=== PATIENT | male | born 1955 | race Caucasian/White ===

== ENCOUNTER 2022-08-30 01:45 | Inpatient (IN) | payer MEDICARE, MEDICAID, SELFPAY ==
[2022-08-30] VITALS (36 sets, daily range): BP systolic 91–147; BP diastolic 53–106; PULSE 102–154; RESP 20–117; TEMP 35.7–39.6; O2SAT 22–98; BMI 34.5
--- NOTE | 2022-08-30 | ECHO_ITS ---
Patient Info Name: David Fairbanks Age: 67 years : 1955 Gender: Male Ht: 74 in Wt: 268 lbs BSA: 2.56 m2 HR: 112 bpm BP: 133 / 106 mmHg Heart Rhythm: Atrial Fibrillation Technical Quality: Poor Exam Date: 08/30/2022 10:24 AM Exam Location: [facility] Patient Status: Inpatient Admit Date: 08/30/2022 Staff Ordering Physician: Mandy Berman DO Head Worker: Shaila Alvarez RDCS Attending Provider: Mandy Berman DO Referring Physician: Antonella GLEASON; Exam Type: CA echo dop color flow w con Study Info Indications I48.0 - Paroxysmal atrial fibrillation Complete two-dimensional, color flow and Doppler transthoracic echocardiogram is performed with contrast to opacify the left ventricle and to improve the deliniation of the left ventricle endocardial borders. Contrast/Agitated Saline Contrast/Ag. Saline: Definity Amount: 4.00 ml Administered By: Shaila Alvarez [facility] Reason for Poor Study: patient body habitus Summary 1. Technically difficult study with limited views despite definity echo contrast enhancement. 2. Left ventricular chamber dimension is normal. 3. Left ventricular systolic function is hyperdynamic, estimated at >70%. 4. There is mildly increased left ventricular wall thickness. 5. The left ventricular diastolic function is indeterminate. 6. There is no aortic valve stenosis. Left Ventricle Left ventricular chamber dimension is normal. Left ventricular systolic function is hyperdynamic, estimated at >70%. There is mildly increased left ventricular wall thickness. The left ventricular diastolic function is indeterminate. Technically difficult study with limited views despite definity echo contrast enhancement. Right Ventricle Right ventricular chamber dimension is normal. Right ventricular systolic function is normal. Left Atria Left atrial chamber dimension is normal. Right Atria Right atrial chamber dimension is not well visualized. Aortic Valve The aortic valve is not well visualized. There is no aortic valve stenosis. Pulmonic Valve The pulmonic valve is not well visualized. Mitral Valve The mitral valve has not well visualized. There is trace mitral valve regurgitation. The mitral valve annulus is moderately calcified. Tricuspid Valve The tricuspid valve leaflets are not well visualized. Unable to assess PA systolic pressure due to poor spectral resolution of tricuspid regurgitant jet velocity. Pericardium/Pleural The pericardium appears epicardial fat pad. There is small pericardial effusion. Inferior Vena Cava Normal inferior vena cava with >50% collapse upon inspiration consistent with normal right atrial pressure, 5 mmHg. Aorta The aortic root size at the sinus of Valsalva is normal. There is mild-moderate aortic atherosclerosis. Left Ventricular Outflow Tract Name Value Normal LVOT 2D LVOT Diameter 1.95 cm LVOT Doppler LVOT Peak Gradient 9 mmHg LVOT Mean Gradient 5 mmHg LVOT VTI 22.37 cm
--- NOTE | ~2022-08-30 | XR_ITS ---
EXAMINATION: XR chest 1V portable DATE: 09/01/2022 13:14 INDICATION: Shortness of breath TECHNIQUE: frontal view of the chest was obtained. COMPARISON: Chest radiograph dated 08/30/2022 FINDINGS: Increased interstitial and mild airspace opacities in the right mid to lower and left lower lung zone s. No pleural effusion or pneumothorax. Cardiomegaly. IMPRESSION: 1. Mild opacities in the right mid to lower and left lower lung zones which could represent mild pulm onary edema related to congestive heart failure versus pneumonia. 2. Cardiomegaly. Reviewed, dictated and finalized at location A. SPINNER IMPRESSION: 1. Mild opacities in the right mid to lower and left lower lung zones which cou ld represent mild pulmonary edema related to congestive heart failure versus pn eumonia. 2. Cardiomegaly.
--- NOTE | ~2022-08-30 | XR_ITS ---
Portable chest x-ray Comparison: 09/01/2022 Clinical History: Shortness of breath Findings: There is central congestive change and probable mild central pulmonary edema pattern. No d efinite pleural effusion. Cardiomediastinal silhouette is stable. Bones and soft tissues are unremar kable. Impression: Mild central pulmonary edema pattern. Reviewed, dictated and finalized at [facility]. GER MARKET RESEARCH Impression: Mild central pulmonary edema pattern.
--- NOTE | ~2022-08-30 | US_ITS ---
EXAMINATION: US renal BI DATE: 08/30/2022 11:55 INDICATION: Obstructive uropathy TECHNIQUE: Multiple grayscale and Doppler ultrasound images of the kidneys were obtained. COMPARISON: None. FINDINGS: The right kidney measures 11.8 x 7.0 x 6.8 cm. The left kidney measures 14.3 x 7.2 x 5.6 cm. The kidn eys demonstrate normal parenchymal echogenicity. 5.0 simple left upper pole cyst. There is mild bilat eral hydronephrosis. The bladder is decompressed by Mace catheter. IMPRESSION: Mild bilateral hydronephrosis. Reviewed, dictated and finalized at location K. IO GRIP
--- NOTE | ~2022-08-30 | XR_ITS ---
EXAMINATION: XR chest 1V portable DATE: 08/30/2022 03:15 INDICATION: Altered mental status and fever TECHNIQUE: frontal view of the chest was obtained. COMPARISON: None FINDINGS: Small lung volumes. Mild linear atelectasis at the left lower lung zone. No pulmonary edema, pleural effusion or pneumothorax. The cardiomediastinal silhouette is normal. IMPRESSION: 1. Small lung volumes with left basilar atelectasis. Reviewed, dictated and finalized at location A. K OFF WORKER
--- NOTE | ~2022-08-30 | CT_ITS ---
EXAMINATION: CT brain wo con DATE: 08/30/2022 19:03 INDICATION: altered mental stautus . TECHNIQUE: Computed tomography (CT) of the head was performed without intravenous contrast. The mA wa s adjusted according to patient size. Iterative reconstruction technique was employed. The dose-lengt h product was 983.67 mGy-cm. COMPARISON: None. FINDINGS: Exam limited by nonstandard positioning and motion. No acute intracranial hemorrhage or extra-axial fluid collection. No hydrocephalus, mass, or herniation. No acute ischemic infarct. Unremarkable dural venous sinus attenuation. No acute osseous abnormality. The aerated spaces are clear. Moderate atrophy and chronic white matter change. Atherosclerotic intracranial calcification. IMPRESSION: Limited examination as detailed above. Within those constraints, no definite acute intracranial proce ss. Reviewed, dictated and finalized at location K. STS' BOOKING REPRESENTATIVE IMPRESSION: Limited examination as detailed above. Within those constraints, no definite ac vince intracranial process.
--- NOTE | 2022-08-30 02:00 | ECG_ITS ---
Measurements Intervals [place] Rate: 131 P: KS: 0 QRS: 12 QRSD: 86 T: 151 QT: 251 QTc: 372 Interpretive Statements ATRIAL FIBRILLATION WITH RAPID VENTRICULAR RESPONSE ST DEVIATION AND MODERATE T-WAVE ABNORMALITY, CONSIDER LATERAL ISCHEMIA ABNORMAL ECG NO PREVIOUS ECG AVAILABLE FOR COMPARISON Electronically Signed On 08-30-2022 13:34:08 TEACHER OF THE EMOTIONALLY DISTURBED by Vinnie Ward M.D.
--- NOTE | 2022-08-30 02:02 | ED.AMS ---
HPI - Altered Mental Status General Chief Complaint: Altered Mental Status Stated Complaint: LETHARGIC, AMS History of Present Illness HPI narrative: 67-year-old male presented to the emergency department from a local skilled nursing for evaluation of altered mental status lethargy and fever. Patient does have history of dementia and bipolar. Patient has been living in a skilled nursing since 2015. Upon arrival to the emergency department patient was in A. fib with RVR in the 130s to 150s. Patient was febrile at 103.3. Related Data Home Medications Medication Instructions Recorded Confirmed apixaban 5 mg tablet (Eliquis) mg 08/30/22 diltiazem HCl 60 mg tablet mg 08/30/22 hydrochlorothiazide 12.5 mg capsule mg 08/30/22 insulin detemir U-100 100 unit/mL unit subcut 08/30/22 subcutaneous solution (Levemir U-100 Insulin) insulin regular human 100 unit/mL 08/30/22 injection solution (Novolin R Regular U-100 Insulin) memantine 10 mg tablet mg 08/30/22 metformin 1,000 mg tablet mg 08/30/22 metoprolol tartrate 25 mg tablet mg 08/30/22 pravastatin 40 mg tablet mg 08/30/22 Allergies Allergy/AdvReac Type Severity Reaction Status Date / Time aspirin Allergy Other Verified 08/30/22 04:41 Review of Systems Review of Systems: ROS unobtainable: Yes unobtainable due to medical condition PMFSH Past Medical History Medical History (Updated 08/30/22 @ 07:00 by Mandy Berman DO) Bipolar disorder Cardiomyopathy Chronic atrial fibrillation Dementia Diabetes mellitus with hyperglycemia, with long-term current use of insulin Diabetic peripheral neuropathy Essential hypertension Morbid obesity Obstructive sleep apnea Likely Vitamin D deficiency Surgical History Surgical History (Updated 08/30/22 @ 06:42 by Mandy Berman DO) Surgical history unknown Family History Family History (Updated 08/30/22 @ 06:42 by Mandy Berman DO) Other Unknown family medical history Social History Social History (Updated 08/30/22 @ 06:51 by Mandy Berman DO) Social History: 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 He has never been and does not have any children. He has been in a skilled nursing since December 2015. His mother is listed as his emergency contact. Code status: DNR/DNI with comfort based treatment Exam Narrative: APPEARANCE: Somnolent and ill-appearing HEAD: normocephalic, atraumatic. EYES: PERRLA/EOMI, conjunctivae clear. NOSE: Normal no drainage THROAT: Pharynx clear, no exudate. NECK: Supple. No adenopathy, no masses. RESPIRATORY: Airway patent, respirations nonlabored. Clear to auscultation bilaterally, no rales, rhonchi, wheezing. CARDIOVASCULAR: Regular rate and rhythm without murmurs rubs or gallops. ABDOMINAL: Soft, nontender, nondistended, normal bowel sounds MUSCULOSKELETAL: Moves all extremities. Strength/ROM intact, No edema, No calf tenderness. NEURO: Alert. Cranial nerves II through XII intact. Grossly intact SKIN: Warm, dry. Normal Color Course Course Emergency Course: Patient had a Mace catheter placed and patient drained 1900 mils of urine. Urine was purulent. Patient's fever was treated with IV Tylenol. Patient does have a leukocytosis of 17.1. Patient has creatinine of 3.7, his baseline is unknown. This is thought to be acute due to his obstructive uropathy. Patient does have history of A. fib but was in A. fib with RVR. Patient was treated with a Cardizem bolus and infusion. Patient was also treated with 2 L of normal saline. Patient UTI was treated with IV Rocephin. Culture and blood culture pending. Patient was also treated with his p.o. morning dose of diltiazem and metoprolol. Case was discussed with the hospitalist and patient was accepted for admission. Vital Signs Vital signs: Vital Signs Temperature 103.3 F H 08/30/22 01:59 Pulse Rate 130 H 08/30/22 01:59 Respiratory Rate 24 H 08/30/22 01:59 Blood Pressure 141/90 H 08/30/22
[2022-08-30] MEDS: dilTIAZem HCl INJ 25 MG/5 ML VIAL 10 MG IV PUSH (02:19)
[2022-08-30] MEDS: SODIUM CHLORIDE 0.9% IV 1,000 ML 999 ML IV CONT ×2 (02:19→03:10)
[2022-08-30] MEDS: dilTIAZem 100 MG/100 ML 100 MG/100 ML BAG IV CONT (02:20)
[2022-08-30 02:43] LABS: Basophils Absolute Auto 0.1 K/mm3 (0.0-0.1); Basophils Percent Auto 0.3 % (0.2-1.2); Eosinophils Percent Auto 0.1 % (0-4.4); Hematocrit 38.9 % (42.0-52.0); Hemoglobin 12.4 g/dL (14.0-18.0); Immature Granulocyte Absolute 0.14 K/mm3 (0.00-0.031); Immature Granulocyte Percent A 0.8 % (0-0.5); Lymphocytes Percent Auto 5.9 % (18.3-44.2); Mean Corpuscular HGB Conc 31.9 g/dl (32-36); Mean Corpuscular Hemoglobin 27.7 pg (26-34); Mean Platelet Volume 9.4 fl (7.4-10.4); Monocytes Percent Auto 5.8 % (2.6-8.5); Neutrophils Absolute Auto 14.9 K/mm3 (1.3-6.7); Neutrophils Percent Auto 87.1 % (45.5-73.1); Platelet Count Result 380 k/mm3 (150-375); Red Blood Count 4.47 M/mm3 (4.6-6.20); White Blood Count 17.1 K/mm3 (4.5-10.0)
[2022-08-30 02:52] LABS: Alanine Aminotransferase 27 U/L (6-50); Albumin Level 3.9 g/dL (3.5-5.1); Alkaline Phosphatase 71 U/L (38-126); Anion Gap 14 mmol/L (8-16); Aspartate Amino Transferase 33 U/L (17-59); Bilirubin,Total 0.5 mg/dL (0.2-1.3); Blood Urea Nitrogen 58 mg/dL (9-20); Calcium 8.4 mg/dL (8.4-10.2); Carbon Dioxide 25 mmol/L (22-30); Chloride 101 mmol/L (98-107); Estimated Glomerular Filt Rate 17; Glucose 103 mg/dL (65-110); Potassium 3.4 mmol/L (3.4-5.0); Sodium 140 mmol/L (137-145)
[2022-08-30 03:17] LABS: Add Urine Microscopic? YES; Bilirubin Urine Negative (Negative); Blood Urine 2+ (Negative); Glucose Urine UA Negative (Negative); Ketones Urine Negative (Negative); Leukocyte Esterase Ur 3+ LEU/UL (Negative); Nitrate Urine Negative (Negative); Protein Urine 2+ mg/dL (Negative); Specific Grav Ur 1.015 (1.001-1.035); Urobilinogen Urine 0.2 mg/dL (<2.0)
[2022-08-30 03:18] LABS: Influenza A QL RT-PCR Negative (Negative); Influenza B QL RT-PCR Negative (Negative); RSV RNA, RT-PCR Negative (Negative); SARS-CoV-2 RNA PCR Negative
[2022-08-30 03:22] LABS: RBC Urine 21-50 /hpf (0-2); WBC Urine >75 /hpf
[2022-08-30 03:26] LABS: Appearance Urine Cloudy (Clear); Color Urine Other (Yellow)
[2022-08-30] MEDS: dilTIAZem HCL 60 MG TABLET PO (04:48)
[2022-08-30] MEDS: METOPROLOL TARTRATE 50 MG TAB 25 MG PO (04:48)
--- NOTE | 2022-08-30 05:54 | PM.IMHP ---
H&P: HPI History of Present Illness Date/Time: 08/30/22 05:54 Chief Complaint: Lethargic Narrative: 67-year-old male with past medical history of bipolar disorder, dementia, chronic atrial fibrillation, cardiomyopathy, type 2 diabetes mellitus uncontrolled and morbid obesity who presented to the ER from [facility] due to lethargy. Source of information is snf records and external med history. Patient is alert oriented to name only and cannot provide history. According to the triage note the patient is usually alert oriented and able to care for himself. However snf staff noted that the patient had not been out of his room for the day and seemed lethargic. He would open his eyes to verbal commands but was not answering questions. Wants to was in the ER and was treated with antibiotics and IV fluids the patient's mentation improved to where he would answer his name and would say yes or no to questions but responses were not appropriate. The patient was still have episodes of staring off. When the patient arrived to the ER he was febrile with a T-max of a 103.3?. He was in AFib RVR with a heart rate into the 140s and 150s. His blood pressures were stable. He was not requiring oxygen but was tachypneic with respiratory rate between 20-30. The patient answers that he does not know when asked about the month day year or where he currently is. When asked about symptoms the patient's simply stares ahead and gives no response. He will squeeze my hands on command. In the ER patient had not urinated to the Mace catheter was placed. Patient had immediate return of 1.9 L of urine. Nursing staff did clamp the patient's Mace catheter after proximally 1.5 L of urine and when they on clamped he still had an additional 400 mL. There was no significant he hematuria but ER staff reported that the patient's urine looked like pus. Review of Systems Review of Systems: ROS unobtainable: Yes unobtainable due to mental status PMFSH Past Medical History Medical History (Updated 08/30/22 @ 07:00 by Mandy Berman, DO) Bipolar disorder Cardiomyopathy Chronic atrial fibrillation Dementia Diabetes mellitus with hyperglycemia, with long-term current use of insulin Diabetic peripheral neuropathy Essential hypertension Morbid obesity Obstructive sleep apnea Likely Vitamin D deficiency Surgical History Surgical History (Updated 08/30/22 @ 06:42 by Mandy Berman DO) Surgical history unknown Family History Family History (Updated 08/30/22 @ 06:42 by Mandy Berman DO) Other Unknown family medical history Social History Social History (Updated 08/30/22 @ 06:51 by Mandy Berman DO) Social History: 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 He has never been and does not have any children. He has been in a snf since December 2015. His mother is listed as his emergency contact. Code status: DNR/DNI with comfort based treatment Meds Home Medications and Allergies Home Medications Medication Instructions Recorded Confirmed Type apixaban 5 mg tablet (Eliquis) mg 08/30/22 History diltiazem HCl 60 mg tablet mg 08/30/22 History hydrochlorothiazide 12.5 mg capsule mg 08/30/22 History insulin detemir U-100 100 unit/mL unit subcut 08/30/22 History subcutaneous solution (Levemir U-100 Insulin) insulin regular human 100 unit/mL 08/30/22 History injection solution (Novolin R Regular U-100 Insulin) memantine 10 mg tablet mg 08/30/22 History metformin 1,000 mg tablet mg 08/30/22 History metoprolol tartrate 25 mg tablet mg 08/30/22 History pravastatin 40 mg tablet mg 08/30/22 History Allergies Allergy/AdvReac Type Severity Reaction Status Date / Time aspirin Allergy Other Verified 08/30/22 04:41 Vital Signs Vital Signs - 24 hr 08/30/22 01:59 08/30/22 02:20 08/30/22 03:02 Temperature 103.3 F H Pulse Rate 130 H 154 H 115 H Respiratory Rate 2
--- NOTE | 2022-08-30 06:58 | ADMGEN ---
This patient, David Fairbanks, was admitted to IMU Room 209-01 at 0640. Patient/family oriented to hospital policies and general routines including ID bracelet, bed and alarms, visiting hours, pain management, procedures, bathroom and other care routines, personal items, smoking policy, room service/diet, and visiting hours. Information on how to activate the Rapid Response Team has been discussed. Patient/Family are encouraged to report perceived risks to care and to ask questions if they do not understand what they are told or what they should do.
--- NOTE | 2022-08-30 07:00 | ADMGEN ---
This patient, David Fairbanks, was admitted to IMU Room 214-01. Patient/family oriented to hospital policies and general routines including ID bracelet, bed and alarms, visiting hours, pain management, procedures, bathroom and other care routines, personal items, smoking policy, room service/diet, and visiting hours. Information on how to activate the Rapid Response Team has been discussed. Patient/Family are encouraged to report perceived risks to care and to ask questions if they do not understand what they are told or what they should do.
[2022-08-30 07:55] LABS: Glucose Point of Care 71 mg/dl (65-105)
[2022-08-30] MEDS: SODIUM CHLORIDE 0.9% IV 1,000 ML 100 ML IV CONT ×2 (08:00→21:47)
[2022-08-30 08:24] LABS: Lactic Acid Reflex 2.2 mmol/L (0.7-2.0)
[2022-08-30] MEDS: PERFLUTREN LIPID MICROSPHERES 1.5 ML VIAL DILUTED TO 10 ML TOTAL VOLUME IV PUSH (10:15)
[2022-08-30] MEDS: dilTIAZem 100 MG/100 ML 100 MG/100 ML BAG 15 MG IV CONT ×3 (10:23→23:45)
[2022-08-30 11:10] LABS: Reflex Lactic Acid Yes or No Add Lactic
--- NOTE | 2022-08-30 11:53 | PM.IMPN ---
Progress Note: A&P Assessment and Plan (1) Sepsis: Qualifiers: Sepsis acute organ dysfunction status: with acute organ dysfunction Sepsis type: sepsis due to unspecified organism Severe sepsis acute organ dysfunction type: encephalopathy Severe sepsis shock status: without septic shock Qualified Code(s): A41.9 - Sepsis, unspecified organism; R65.20 - Severe sepsis without septic shock; G93.40 - Encephalopathy, unspecified Code(s): A41.9 - Sepsis, unspecified organism Status: Acute Assessment and Plan: Patient has sepsis complicated by acute metabolic and encephalopathy and acute kidney injury. Sepsis due to UTI and associated obstructive uropathy. Mace catheter placed. Blood cultures and urine cultures are pending. Lactic acid level 2.2. Patient received 2 L fluid bolus in the ER; continue IV fluid hydration. Continue empiric antibiotic therapy. Change to Cefepime and Vanco. Narrow abx when able. He is DNR (2) Atrial fibrillation with RVR: Code(s): I48.91 - Unspecified atrial fibrillation Status: Acute Assessment and Plan: Patient has AFib RVR likely due to combination of volume depletion and sepsis. Patient has chronic atrial fibrillation at baseline. Continue Cardizem drip at this time until he is more awake and alert. NPO for now. Echo ordered. Resume Eliquis when able. (3) Acute kidney injury: Code(s): N17.9 - Acute kidney failure, unspecified Status: Acute Assessment and Plan: Patient has acute kidney injury likely due to combination of sepsis and obstructive uropathy. Mace catheter is in place. Will monitor urine output closely. Continue IV fluid hydration. Renal US pending. Further workup if Cr does not improve as expected (4) Acute UTI: Code(s): N39.0 - Urinary tract infection, site not specified Status: Acute Assessment and Plan: UA noted. UTI related to obstructive uropathy. Mace secured. Follow up on UCx and BCx results (5) Obstructive uropathy: Code(s): N13.9 - Obstructive and reflux uropathy, unspecified Status: Acute Assessment and Plan: As above. Mace secured. Add Flomax when able. 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 Continue AccuCheks covering with sliding scale. Hypoglycemia protocol available as needed. Continue to monitor (7) Metabolic encephalopathy: Code(s): G93.41 - Metabolic encephalopathy Status: Acute Assessment and Plan: Patient with altered mental status on admission. The patient had acute metabolic encephalopathy related to sepsis and infection complicated by his underlying dementia. Will continue to monitor and avoid sedating medications. Check CT brain. Subjective Date/time seen: 08/30/22 11:53 Interval history: 67yo male with dementia, cAFib, CMP and DM here for altered mental status. Patient arouses but is unable to provide history. Review of Systems Review of Systems: ROS unobtainable: Yes unobtainable due to mental status Exam Narrative: Tm 103.3 96.7 142/63 107 24 98% ra Gen - poorly responsive, tachypneic at times Chest - clear anteriorly and in the flanks. CV - tachycardic Abd - Soft, no apparent tenderness - Mace secured draining cloudy orange urine Ext - trace pedal edema Neuro - Arouses and opens eyes but does not follow commands Skin - Warm to touch Objective Data Vital Signs Vital Signs: Vital Signs - 24 hr 08/30/22 01:59 08/30/22 02:20 08/30/22 03:02 Temperature 103.3 F H Pulse Rate 130 H 154 H 115 H Respiratory Rate 24 H Blood Pressure 141/90 H 141/90 H Pulse Oximetry Oxygen Delivery
[2022-08-30 12:05] LABS: Glucose Point of Care 113 mg/dl (65-105)
[2022-08-30 12:43] LABS: Lactic Acid 1.8 mmol/L (0.7-2.0)
[2022-08-30 12:45] LABS: Anion Gap 8 mmol/L (8-16); Blood Urea Nitrogen 37 mg/dL (9-20); Calcium 7.8 mg/dL (8.4-10.2); Carbon Dioxide 27 mmol/L (22-30); Chloride 104 mmol/L (98-107); Creatine Kinase 817 U/L (55-170); Estimated CRCL calculation 47 ml/min; Estimated Glomerular Filt Rate 34; Glucose 114 mg/dL (65-110); Phosphorus 3.7 mg/dL (2.5-4.5); Sodium 139 mmol/L (137-145)
[2022-08-30 15:46] LABS: Alveolar/Arterial O2 Gradient 56.7 mmHg; Base Excess ABG -0.2 mEq/l (+/-2.0); Fractional Inspired Oxygen 21 %; HCO3 ABG 21.4 mEq/l (22.0-26.0); Oxygen Content ABG 15.2 %vol (16.0-22.0); Oxygen Saturation ABG 94.4 % (95.0-100.0); Oxyhemoglobin 92.2 % THb (90.0-100.0); PCO2 ABG 26.2 mmHg (35.0-45.0); PO2 ABG 61.7 mmHg (80.0-100.0); PO2 FiO2 Ratio Arterial Blood 2.94 %; Total Hemoglobin 11.7 g/dL (12.0-18.0)
[2022-08-30 15:49] LABS: Device ROOM AIR; Modified Allen's Test Pass; Site Drawn LEFT RADIAL; pH ABG 7.529 (7.350-7.450)
[2022-08-30] MEDS: INSULIN ASPART (*BKC) 100 UNITS/ML SUB-Q (17:49)
[2022-08-30 18:18] LABS: Glucose Point of Care 206 mg/dl (65-105)
[2022-08-30 21:29] LABS: Glucose Point of Care 208 mg/dl (65-105)
[2022-08-31] VITALS (19 sets, daily range): BP systolic 108–136; BP diastolic 54–112; PULSE 105–142; RESP 21–28; TEMP 36.3–37.2; O2SAT 96–100
[2022-08-31 05:32] LABS: Basophils Percent Auto 0.2 % (0.2-1.2); Hematocrit 33.2 % (42.0-52.0); Hemoglobin 10.5 g/dL (14.0-18.0); Immature Granulocyte Absolute 0.09 K/mm3 (0.00-0.031); Immature Granulocyte Percent A 0.8 % (0-0.5); Lymphocytes Absolute Auto 1.25 K/mm3 (0.9-3.2); Lymphocytes Percent Auto 11.5 % (18.3-44.2); Mean Corpuscular HGB Conc 31.6 g/dl (32-36); Mean Corpuscular Hemoglobin 27.7 pg (26-34); Mean Corpuscular Volume 87.6 fl (80-100); Mean Platelet Volume 8.9 fl (7.4-10.4); Monocytes Absolute Auto 0.8 K/mm3 (0.1-0.6); Neutrophils Absolute Auto 8.8 K/mm3 (1.3-6.7); Neutrophils Percent Auto 80.5 % (45.5-73.1); Platelet Count Result 258 k/mm3 (150-375); Red Blood Count 3.79 M/mm3 (4.6-6.20); Red Cell Distribution Width 13.2 % (11.5-14.5); White Blood Count 10.9 K/mm3 (4.5-10.0)
[2022-08-31 05:59] LABS: Anion Gap 12 mmol/L (8-16); Blood Urea Nitrogen 21 mg/dL (9-20); Calcium 7.6 mg/dL (8.4-10.2); Carbon Dioxide 22 mmol/L (22-30); Chloride 109 mmol/L (98-107); Estimated CRCL calculation 73 ml/min; Estimated Glomerular Filt Rate 55; Glucose 262 mg/dL (65-110); Magnesium 1.9 mg/dL (1.6-2.3); Potassium 2.6 mmol/L (3.4-5.0); Sodium 143 mmol/L (137-145)
[2022-08-31] MEDS: SODIUM CHLORIDE 0.9% IV 1,000 ML 100 ML IV CONT (06:07)
[2022-08-31] MEDS: dilTIAZem 100 MG/100 ML 100 MG/100 ML BAG 15 MG IV CONT ×3 (06:40→19:50)
[2022-08-31 07:47] LABS: Glucose Point of Care 309 mg/dl (65-105)
[2022-08-31] MEDS: INSULIN ASPART (*BKC) 100 UNITS/ML SUB-Q ×3 (08:07→18:00)
[2022-08-31 11:37] LABS: Glucose Point of Care 261 mg/dl (65-105)
[2022-08-31 12:28] LABS: Hemoglobin A1C 10.8 % (<5.7)
[2022-08-31] MEDS: POTASSIUM CHLORIDE 20 MEQ TABLET 60 MEQ PO (12:28)
[2022-08-31] MEDS: POTASSIUM CHLORIDE INJ 40 MEQ in SODIUM CHLORIDE 0.9% IV 500 ML 130 MEQ IVPB (13:07)
--- NOTE | 2022-08-31 13:28 | PM.IMPN ---
Progress Note: A&P Assessment and Plan (1) Sepsis: Qualifiers: Sepsis acute organ dysfunction status: with acute organ dysfunction Sepsis type: sepsis due to unspecified organism Severe sepsis acute organ dysfunction type: encephalopathy Severe sepsis shock status: without septic shock Qualified Code(s): A41.9 - Sepsis, unspecified organism; R65.20 - Severe sepsis without septic shock; G93.40 - Encephalopathy, unspecified Code(s): A41.9 - Sepsis, unspecified organism Status: Acute Assessment and Plan: Sepsis likely from UTI with associated obstructive uropathy, continue Mace, cultures pending Continue of vanc and cefepime (2) Atrial fibrillation with RVR: Code(s): I48.91 - Unspecified atrial fibrillation Status: Acute Assessment and Plan: Continue Cardizem drip, appreciate cardiology consultation EF greater than 70%, indeterminate diastolic function, no valvular abnormalities or pulmonary hypertension noted (3) Acute kidney injury: Code(s): N17.9 - Acute kidney failure, unspecified Status: Acute Assessment and Plan: Improving, continue to monitor (4) Acute UTI: Code(s): N39.0 - Urinary tract infection, site not specified Status: Acute Assessment and Plan: Continue antibiotics, follow-up urine culture (5) Obstructive uropathy: Code(s): N13.9 - Obstructive and reflux uropathy, unspecified Status: Acute Assessment and Plan: Continue Mace (6) Diabetes mellitus with hyperglycemia, with long-term current use of insulin: Code(s): E11.65 - Type 2 diabetes mellitus with hyperglycemia; 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 Patient arouses but is unable to provide history. No overnight events noted. No fevers or chills Review of Systems Review of Systems: ROS unobtainable: Yes unobtainable due to mental status Exam Narrative: General: Appears quite confused HEENT: Atraumatic, normocephalic, mucous membranes moist CV: Regular rate and rhythm, S1, S2 Lungs: Diminished throughout, scattered wheezes Abdomen: Soft, nontender, nondistended Extremities: Normal to inspection Skin: No rashes noted, no lesions or wounds seen Psych: Unable to assess Objective Data Vital Signs Vital Signs: Vital Signs - 24 hr 08/30/22 14:00 08/30/22 16:00 08/30/22 16:51 Temperature 100 F H Pulse Rate 115 H 112 H Respiratory Rate 117 H Blood Pressure 143/61 H Pulse Oximetry 22 L Oxygen Delivery 08/30/22 18:20 08/30/22 16:00 08/30/22 18:00 Temperature 103.3 F H Pulse Rate 109 H 122 H Respiratory Rate Blood Pressure Pulse Oximetry Oxygen Delivery 08/30/22 16:00 08/30/22 20:00 08/30/22 23:45 Temperature 98.9 F Pulse Rate 121 H 103 H Respiratory Rate 30 H Blood Pressure 101/78 Pulse Oximetry 96 Oxygen Delivery Room Air 08/30/22 23:51 08/30/22 20:00 08/31/22 00:00 Temperature 100.4 F H Pulse Rate 113 H Respiratory Rate 26 H Blood Pressure 133/70 Pulse Oximetry 94 Oxygen Delivery Room Air Room Air 08/30/22 20:00 08/30/22 22:00 08/31/22 00:00 Temperature Pulse Rate 131 H 113 H 109 H Respiratory Rate Blood Pressure Pulse Oximetry Oxygen Delivery 08/31/22 02:00 08/31/22 03:49 08/31/22 04:00 Temperature 99.0 F Pulse Rate 105 H 129 H Respiratory Rate 28 H Blood Pressure 125/69 Pulse Oximetry 97 Oxygen Delivery Room Air 08/31/22 04:00 1
[2022-08-31 16:44] LABS: Glucose Point of Care 244 mg/dl (65-105)
[2022-08-31 20:33] LABS: Glucose Point of Care 271 mg/dl (65-105)
[2022-09-01] VITALS (22 sets, daily range): BP systolic 105–156; BP diastolic 64–94; PULSE 63–143; RESP 20–32; TEMP 36.5–37.2; O2SAT 92–99; BMI 35.4
[2022-09-01] MEDS: dilTIAZem 100 MG/100 ML 100 MG/100 ML BAG 15 MG IV CONT ×4 (02:32→21:55)
[2022-09-01 04:50] LABS: Basophils Percent Auto 0.2 % (0.2-1.2); Hematocrit 31.6 % (42.0-52.0); Hemoglobin 10.1 g/dL (14.0-18.0); Immature Granulocyte Absolute 0.09 K/mm3 (0.00-0.031); Immature Granulocyte Percent A 0.7 % (0-0.5); Lymphocytes Absolute Auto 1.79 K/mm3 (0.9-3.2); Mean Corpuscular Hemoglobin 27.7 pg (26-34); Mean Corpuscular Volume 86.6 fl (80-100); Monocytes Absolute Auto 1.2 K/mm3 (0.1-0.6); Monocytes Percent Auto 8.8 % (2.6-8.5); Neutrophils Absolute Auto 10.7 K/mm3 (1.3-6.7); Neutrophils Percent Auto 77.3 % (45.5-73.1); Platelet Count Result 245 k/mm3 (150-375); Red Blood Count 3.65 M/mm3 (4.6-6.20); White Blood Count 13.8 K/mm3 (4.5-10.0)
[2022-09-01 05:10] LABS: Anion Gap 12 mmol/L (8-16); Blood Urea Nitrogen 12 mg/dL (9-20); Calcium 7.7 mg/dL (8.4-10.2); Carbon Dioxide 21 mmol/L (22-30); Chloride 103 mmol/L (98-107); Estimated CRCL calculation 104 ml/min; Estimated Glomerular Filt Rate > 60; Glucose 287 mg/dL (65-110); Magnesium 1.7 mg/dL (1.6-2.3); Phosphorus 2.2 mg/dL (2.5-4.5); Potassium 2.7 mmol/L (3.4-5.0); Sodium 136 mmol/L (137-145)
[2022-09-01 05:24] LABS: Iron 15 ug/dL (49-181)
[2022-09-01] MEDS: POTASSIUM CHLORIDE 20 MEQ TABLET 60 MEQ PO (05:29)
[2022-09-01] MEDS: MAGNESIUM SULF 2 GM/WATER 50ML 2 GM/50 ML BAG IVPB (05:29)
[2022-09-01 05:34] LABS: Percent Iron Saturation 6 % (20-50)
[2022-09-01] MEDS: INSULIN ASPART (*BKC) 100 UNITS/ML SUB-Q ×3 (08:09→16:44)
[2022-09-01 08:22] LABS: Glucose Point of Care 309 mg/dl (65-105)
--- NOTE | 2022-09-01 09:03 | PM.CNCAR ---
Assessment and Plan Assessment and plan (1) Atrial fibrillation with RVR: Code(s): I48.91 - Unspecified atrial fibrillation Status: Acute Assessment and Plan: Persistent AFib with RVR in the setting of sepsis, UTI persists despite diltiazem 15 milligrams/hour. Patient has became progressively more tachycardic over the past 24 hours. Patient has been severely hypokalemic despite supplementation. Will need to more aggressively replete to keep around 4.0. Add metoprolol for additional heart rate control as tolerated. If heart rate remains poorly controlled discontinue diltiazem favor of amiodarone. However, Eliquis has apparently been held since 08/30, H&H stable. Resume unless contraindication. Reassess respiratory status given tachypnea although O2 sat on room air stable. Patient has mild lower extremity edema consider IV Lasix, however, given recent severe hypokalemia miss aggressively replete but I would review chest x-ray 1st. Monitor volume status, H&H. Potassium is now been replete this afternoon. Troponin negative. If electrical cardioversion deemed necessary unfortunately he would now require BASIM guidance as he has been off anticoagulation which replacement elevated risk for acute respiratory decompensation. May give IV metoprolol 5 mg x 1, increase metoprolol to 50 mg p.o. q.8 hours and continue diltiazem drip at this time. As above, while amiodarone remains a consideration this would pose additional embolic stroke risk as he has been off anticoagulation but may be considered if no other reasonable option. (2) Metabolic encephalopathy: Code(s): G93.41 - Metabolic encephalopathy Status: Acute Assessment and Plan: Stable, history of bipolar disorder. Management per primary service. (3) Acute UTI: Code(s): N39.0 - Urinary tract infection, site not specified Status: Acute Assessment and Plan: IV antibiotics. Management per primary service. (4) Hypokalemia: Code(s): E87.6 - Hypokalemia Status: Acute Assessment and Plan: Severe hypokalemia now replete today. Continue to monitor very closely. Keep around 4.0. Magnesium 1.7. May given additional 1 g magnesium sulfate IV. (5) Acute kidney injury: Code(s): N17.9 - Acute kidney failure, unspecified Status: Acute Assessment and Plan: Significant improvement since admission 3.7 initially now 0.9 secondary to intravascular volume depletion. (6) Sepsis: Qualifiers: Sepsis acute organ dysfunction status: with acute organ dysfunction Sepsis type: sepsis due to unspecified organism Severe sepsis acute organ dysfunction type: encephalopathy Severe sepsis shock status: without septic shock Qualified Code(s): A41.9 - Sepsis, unspecified organism; R65.20 - Severe sepsis without septic shock; G93.40 - Encephalopathy, unspecified Code(s): A41.9 - Sepsis, unspecified organism Status: Acute Assessment and Plan: Management per primary service. Acute illness not doubt driving his heart rate. Continue IV antibiotics and supportive care. WBC fluctuating up from yesterday now. Repeat cultures if febrile. 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 History of Present Illness History of Present Illness Consult date/time: Date of service: 09/01/22 09:03 Requesting physician: Funmilayo Mtz DO Consult reason: atrial fibrillation Reason For Visit: UTI,Afib,RVR,YUN Narrative: Patient is a 67-year-old male with a past medical history significant for bipolar disorder, dementia, persistent atrial fibrillation on systemic anticoagulation, type 2 diabetes mellitus, obesity who presented from halfway due to lethargy found to be in acute renal failure with
[2022-09-01] MEDS: MICAFUNGIN SODIUM 100 MG in SODIUM CHLORIDE 0.9% IV 100 ML IVPB (10:45)
[2022-09-01 11:48] LABS: Glucose Point of Care 298 mg/dl (65-105)
[2022-09-01] MEDS: POTASSIUM CHLORIDE 20 MEQ PACKET (FOR LIQUID) 40 MEQ PO ×2 (12:08→16:52)
[2022-09-01] MEDS: METOPROLOL TARTRATE 25 MG TABLET PO ×2 (12:08→14:46)
[2022-09-01 13:30] LABS: Alveolar/Arterial O2 Gradient 82.8 mmHg; Base Excess ABG 1.3 mEq/l (+/-2.0); Fractional Inspired Oxygen 21 %; HCO3 ABG 24.4 mEq/l (22.0-26.0); Oxygen Content ABG 9.1 %vol (16.0-22.0); PO2 FiO2 Ratio Arterial Blood 1.25 %; Total Hemoglobin 12.8 g/dL (12.0-18.0); pH ABG 7.474 (7.350-7.450)
[2022-09-01] MEDS: METOPROLOL TARTRATE INJ 5 MG/5 ML VIAL IV PUSH (13:30)
[2022-09-01 13:32] LABS: PO2 ABG < 27.0 mmHg (80.0-100.0)
[2022-09-01 13:34] LABS: Oxygen Saturation ABG 53.4 % (95.0-100.0)
[2022-09-01 13:35] LABS: Oxyhemoglobin 50.8 % THb (90.0-100.0)
[2022-09-01 13:36] LABS: Potassium 3.6 mmol/L (3.4-5.0)
[2022-09-01 13:52] LABS: Troponin I < 0.012 ng/mL (0.000-0.034)
[2022-09-01 14:37] LABS: Alveolar/Arterial O2 Gradient 68.5 mmHg; Base Excess ABG -0.4 mEq/l (+/-2.0); Fractional Inspired Oxygen 21 %; HCO3 ABG 20.4 mEq/l (22.0-26.0); Oxygen Saturation ABG 91.1 % (95.0-100.0); PCO2 ABG 24.7 mmHg (35.0-45.0); PO2 ABG 51.7 mmHg (80.0-100.0); PO2 FiO2 Ratio Arterial Blood 2.46 %
[2022-09-01 14:38] LABS: Modified Allen's Test Pass; Site Drawn RIGHT RADIAL; pH ABG 7.534 (7.350-7.450)
[2022-09-01 14:51] LABS: Oxygen Content ABG 14.1 %vol (16.0-22.0); Oxyhemoglobin 89.3 % THb (90.0-100.0); Total Hemoglobin 11.2 g/dL (12.0-18.0)
[2022-09-01] MEDS: QUEtiapine FUMARATE 12.5 MG TABLET PO ×2 (15:00→21:54)
[2022-09-01 16:00] LABS: D Dimer 3.79 ug/mL (<0.48)
--- NOTE | 2022-09-01 16:19 | PM.IMPN ---
Progress Note: A&P Assessment and Plan (1) Sepsis: Qualifiers: Sepsis type: sepsis due to unspecified organism Sepsis acute organ dysfunction status: with acute organ dysfunction Severe sepsis acute organ dysfunction type: encephalopathy Severe sepsis shock status: without septic shock Qualified Code(s): A41.9 - Sepsis, unspecified organism; R65.20 - Severe sepsis without septic shock; G93.40 - Encephalopathy, unspecified Code(s): A41.9 - Sepsis, unspecified organism Status: Acute Assessment and Plan: Sepsis likely from UTI with associated obstructive uropathy, continue Mcae, cultures pending Continue vanc and cefepime 09/01: Both blood and urine cultures came back positive for Nora glabrata, micafungin initiated (2) Atrial fibrillation with RVR: Code(s): I48.91 - Unspecified atrial fibrillation Status: Acute Assessment and Plan: Continue Cardizem drip, appreciate cardiology consultation EF greater than 70%, indeterminate diastolic function, no valvular abnormalities or pulmonary hypertension noted Uncontrolled maxed out on Cardizem drip, oral metoprolol added (3) Acute kidney injury: Code(s): N17.9 - Acute kidney failure, unspecified Status: Acute Assessment and Plan: Resolved (4) Acute UTI: Code(s): N39.0 - Urinary tract infection, site not specified Status: Acute Assessment and Plan: Continue antibiotics for now, started micafungin due to Nora found in urine (5) Obstructive uropathy: Code(s): N13.9 - Obstructive and reflux uropathy, unspecified Status: Acute Assessment and Plan: Continue Mace (6) Diabetes mellitus with hyperglycemia, with long-term current use of insulin: Code(s): E11.65 - Type 2 diabetes mellitus with hyperglycemia; Z79.4 - prison (current) use of insulin Status: Acute Assessment and Plan: Continue Accu-Chek, sliding scale insulin (7) Metabolic encephalopathy: Code(s): G93.41 - Metabolic encephalopathy Status: Acute Assessment and Plan: likely multifactorial, plan as above Plan DVT prophylaxis with Eliquis GI prophylaxis not indicated Code status full code Subjective Date/time seen: 09/01/22 16:19 Interval history: Here with altered mental status. Patient arouses but is unable to provide history. Patient appears to be hyperventilating. ABG showed some respiratory alkalosis. Patient's heart rate continues to be significantly tachycardic in the 130s to 150s. Review of Systems Review of Systems: ROS unobtainable: Yes unobtainable due to mental status Exam Narrative: General: Appears quite confused and anxious HEENT: Atraumatic, normocephalic, mucous membranes moist CV: Irregularly irregular, S1, S2 Lungs: Diminished throughout, scattered wheezes Abdomen: Soft, nontender, nondistended Extremities: Normal to inspection Skin: No rashes noted, no lesions or wounds seen Psych: Unable to assess Objective Data Vital Signs Vital Signs: Vital Signs - 24 hr 08/31/22 16:52 08/31/22 19:50 08/31/22 20:51 Temperature 98.0 F 97.5 F L Pulse Rate 135 H 142 H 130 H Respiratory Rate 28 H 21 H Blood Pressure 134/112 H 136/60 Pulse Oximetry 100 99 Oxygen Delivery 08/31/22 20:00 08/31/22 20:00 08/31/22 22:00 Temperature Pulse Rate 126 H 119 H Respiratory Rate Blood Pressure Pulse Oximetry Oxygen Delivery Room Air 09/01/22 00:29 09/01/22 00:00 09/01/22 00:00 Temperature 97.8 F Pulse Rate 133 H 141 H Respiratory Rate 22 H Blood Pressure 156/66 H Pulse Oximetry 94 Oxygen Delivery Room Air 09/01/22 02:00 09/01/22 02:32 09/01/22 04:00 Temperature Pulse Rate 126 H 131 H 133 H Respiratory Rate Blood Pressure Pulse Oximetry Oxygen Delivery 09/01/22 04:00 09/01/22 05:12 09/01/22 06:00 Temperature 97.7 F Pulse Rate 127 H 124 H Re
[2022-09-01 16:53] LABS: Glucose Point of Care 317 mg/dl (65-105)
[2022-09-01 20:12] LABS: Glucose Point of Care 321 mg/dl (65-105)
[2022-09-01] MEDS: APIXABAN 5 MG TABLET PO (21:54)
[2022-09-01] MEDS: METOPROLOL TARTRATE 50 MG TAB PO (21:55)
[2022-09-02] VITALS (20 sets, daily range): BP systolic 117–138; BP diastolic 72–94; PULSE 95–125; RESP 18–24; TEMP 35.7–36.7; O2SAT 91–99
[2022-09-02 05:06] LABS: Basophils Percent Auto 0.2 % (0.2-1.2); Eosinophils Percent Auto 0.3 % (0-4.4); Hematocrit 32.7 % (42.0-52.0); Hemoglobin 10.2 g/dL (14.0-18.0); Immature Granulocyte Absolute 0.08 K/mm3 (0.00-0.031); Immature Granulocyte Percent A 0.7 % (0-0.5); Lymphocytes Absolute Auto 2.02 K/mm3 (0.9-3.2); Lymphocytes Percent Auto 18.6 % (18.3-44.2); Mean Corpuscular HGB Conc 31.2 g/dl (32-36); Mean Corpuscular Hemoglobin 27.1 pg (26-34); Mean Platelet Volume 9.7 fl (7.4-10.4); Monocytes Absolute Auto 0.9 K/mm3 (0.1-0.6); Monocytes Percent Auto 7.9 % (2.6-8.5); Neutrophils Absolute Auto 7.8 K/mm3 (1.3-6.7); Neutrophils Percent Auto 72.3 % (45.5-73.1); Nucleated Red Blood Cells Perc 0.2 % (0.0-0.2); Platelet Count Result 266 k/mm3 (150-375); Red Blood Count 3.76 M/mm3 (4.6-6.20); Red Cell Distribution Width 13.2 % (11.5-14.5); White Blood Count 10.9 K/mm3 (4.5-10.0)
[2022-09-02 05:18] LABS: Anion Gap 11 mmol/L (8-16); Blood Urea Nitrogen 16 mg/dL (9-20); Calcium 7.9 mg/dL (8.4-10.2); Carbon Dioxide 20 mmol/L (22-30); Chloride 108 mmol/L (98-107); Estimated CRCL calculation 92 ml/min; Estimated Glomerular Filt Rate > 60; Glucose 334 mg/dL (65-110); Phosphorus 2.2 mg/dL (2.5-4.5); Potassium 3.7 mmol/L (3.4-5.0); Sodium 139 mmol/L (137-145)
[2022-09-02] MEDS: METOPROLOL TARTRATE 50 MG TAB PO ×3 (06:00→22:20)
[2022-09-02] MEDS: dilTIAZem 100 MG/100 ML 100 MG/100 ML BAG 15 MG IV CONT ×3 (06:01→20:54)
--- NOTE | 2022-09-02 08:00 | ECG_ITS ---
Measurements Intervals [place] Rate: 102 P: FL: 0 QRS: 13 QRSD: 90 T: 41 QT: 367 QTc: 479 Interpretive Statements ATRIAL FIBRILLATION WITH RAPID VENTRICULAR RESPONSE NONSPECIFIC ST ABNORMALITY ABNORMAL ECG COMPARED TO ECG 08/30/2022 02:05:58 NO SIGNIFICANT CHANGES Electronically Signed On 09-02-2022 17:49:06 MEDICAL STAFF SERVICES COORDINATOR by Vinnie Ward M.D.
[2022-09-02 08:24] LABS: Glucose Point of Care 339 mg/dl (65-105)
[2022-09-02] MEDS: INSULIN ASPART (*BKC) 100 UNITS/ML SUB-Q ×3 (08:54→16:27)
[2022-09-02] MEDS: PANTOPRAZOLE SODIUM IV 40 MG VIAL IV PUSH (08:55)
[2022-09-02] MEDS: POTASSIUM CHLORIDE 20 MEQ PACKET (FOR LIQUID) 40 MEQ PO ×2 (08:55→17:55)
[2022-09-02] MEDS: QUEtiapine FUMARATE 12.5 MG TABLET PO ×2 (08:56→20:53)
[2022-09-02] MEDS: APIXABAN 5 MG TABLET PO ×2 (08:56→20:53)
[2022-09-02] MEDS: MICAFUNGIN SODIUM 100 MG in SODIUM CHLORIDE 0.9% IV 100 ML IVPB (08:56)
--- NOTE | 2022-09-02 11:00 | PC.NURSE ---
This RN attempted to retrieve contact information from [facility] in an effort to secure consent for PICC line placement. The only contact information they had was the patient's mother who's number we currently have and is disconnected.
--- NOTE | 2022-09-02 11:06 | PM.PNCARD ---
Progress Note: A&P Assessment and Plan (1) Atrial fibrillation with RVR: Code(s): I48.91 - Unspecified atrial fibrillation <FRANNY Ng - Last Filed: 09/02/22 16:25> Status: Acute <FRANNY Ng - Last Filed: 09/02/22 16:25> Assessment and Plan: Persistent AFib with RVR in the setting of sepsis. However, Eliquis had apparently been held since 08/30, but has now been resumed. At this point he is reasonably rate controlled on diltiazem 15mg/hr and metoprolol 50mg q8h. If he does not remain reasonably controlled can consider discontinuing diltiazem in favor of amiodarone or BASIM/CV. <FRANNY Ng - Last Filed: 09/02/22 16:25> (2) Metabolic encephalopathy: Code(s): G93.41 - Metabolic encephalopathy <FRANNY Ng - Last Filed: 09/02/22 16:25> Status: Acute <FRANNY Ng - Last Filed: 09/02/22 16:25> Assessment and Plan: Stable, history of bipolar disorder. Management per primary service. <FRANNY Ng - Last Filed: 09/02/22 16:25> (3) Acute UTI: Code(s): N39.0 - Urinary tract infection, site not specified <FRANNY Ng - Last Filed: 09/02/22 16:25> Status: Acute <FRANNY Ng - Last Filed: 09/02/22 16:25> Assessment and Plan: IV antibiotics. Management per primary service. <FRANNY Ng - Last Filed: 09/02/22 16:25> (4) Hypokalemia: Code(s): E87.6 - Hypokalemia <FRANNY Ng - Last Filed: 09/02/22 16:25> Status: Acute <FRANNY Ng - Last Filed: 09/02/22 16:25> Assessment and Plan: Severe hypokalemia now replete today. Continue to monitor very closely. Keep around 4.0. Magnesium 1.7. May given additional 1 g magnesium sulfate IV. <FRANNY Ng - Last Filed: 09/02/22 16:25> (5) Acute kidney injury: Code(s): N17.9 - Acute kidney failure, unspecified <FRANNY Ng - Last Filed: 09/02/22 16:25> Status: Acute <FRANNY Ng - Last Filed: 09/02/22 16:25> Assessment and Plan: Significant improvement since admission 3.7 initially now 0.9 secondary to intravascular volume depletion. <FRANNY Ng - Last Filed: 09/02/22 16:25> (6) Sepsis: Qualifiers: Sepsis acute organ dysfunction status: with acute organ dysfunction Sepsis type: sepsis due to unspecified organism Severe sepsis acute organ dysfunction type: encephalopathy Severe sepsis shock status: without septic shock Qualified Code(s): A41.9 - Sepsis, unspecified organism; R65.20 - Severe sepsis without septic shock; G93.40 - Encephalopathy, unspecified <FRANNY Ng - Last Filed: 09/02/22 16:25> Code(s): A41.9 - Sepsis, unspecified organism <FRANNY Ng - Last Filed: 09/02/22 16:25> Status: Acute <FRANNY Ng - Last Filed: 09/02/22 16:25> Assessment and Plan: Management per primary service. Acute illness not doubt driving his heart rate. Continue IV antibiotics and supportive care. WBC fluctuating up from yesterday now. Repeat cultures if febrile. 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 <FRANNY Ng - Last Filed: 09/02/22 16:25> Assessment and Plan: Attending Addendum: I agree with the above documentation and plan of care as outlined. <Vinnie Ward MD - Last Filed: 09/02/22 17:04> Subjective Date/time seen: 09/02/22 11:06 Cardiology follow up for atrial fibrillation Remains in atrial fibrillation but has
--- NOTE | 2022-09-02 12:17 | PM.IMPN ---
Progress Note: A&P Assessment and Plan (1) Sepsis: Qualifiers: Sepsis acute organ dysfunction status: with acute organ dysfunction Sepsis type: sepsis due to unspecified organism Severe sepsis acute organ dysfunction type: encephalopathy Severe sepsis shock status: without septic shock Qualified Code(s): A41.9 - Sepsis, unspecified organism; R65.20 - Severe sepsis without septic shock; G93.40 - Encephalopathy, unspecified Code(s): A41.9 - Sepsis, unspecified organism Status: Acute Assessment and Plan: Sepsis likely from UTI with associated obstructive uropathy, continue Mace, cultures pending Continue vanc and cefepime 09/01: Both blood and urine cultures came back positive for Nora glabrata, micafungin initiated 09/02: Continue micafungin, check repeat blood cultures tomorrow (2) Atrial fibrillation with RVR: Code(s): I48.91 - Unspecified atrial fibrillation Status: Acute Assessment and Plan: Continue Cardizem drip, appreciate cardiology consultation EF greater than 70%, indeterminate diastolic function, no valvular abnormalities or pulmonary hypertension noted Uncontrolled maxed out on Cardizem drip, oral metoprolol added (3) Acute kidney injury: Code(s): N17.9 - Acute kidney failure, unspecified Status: Acute Assessment and Plan: Resolved (4) Acute UTI: Code(s): N39.0 - Urinary tract infection, site not specified Status: Acute Assessment and Plan: Continue antibiotics for now, started micafungin due to Nora found in urine (5) Obstructive uropathy: Code(s): N13.9 - Obstructive and reflux uropathy, unspecified Status: Acute Assessment and Plan: Continue Mace (6) Diabetes mellitus with hyperglycemia, with long-term current use of insulin: Code(s): E11.65 - Type 2 diabetes mellitus with hyperglycemia; Z79.4 - custodial (current) use of insulin Status: Acute Assessment and Plan: Continue Accu-Chek, sliding scale insulin (7) Metabolic encephalopathy: Code(s): G93.41 - Metabolic encephalopathy Status: Acute Assessment and Plan: likely multifactorial, plan as above Plan DVT prophylaxis with Eliquis GI prophylaxis not indicated Code status full code Subjective Date/time seen: 09/02/22 12:17 Interval history: Unable to get good history as patient is alert and oriented to self only. No overnight events noted. No fevers. No emesis or diarrhea. Review of Systems Review of Systems: ROS unobtainable: Yes unobtainable due to mental status Exam Narrative: General: Appears to be at baseline mentation, alert oriented to self only HEENT: Atraumatic, normocephalic, mucous membranes moist CV: Irregularly irregular, S1, S2 Lungs: Diminished throughout, scattered wheezes Abdomen: Soft, nontender, nondistended Extremities: Normal to inspection Skin: No rashes noted, no lesions or wounds seen Psych: Unable to assess Objective Data Vital Signs Vital Signs: Vital Signs - 24 hr 09/01/22 13:30 09/01/22 14:46 09/01/22 15:03 Temperature Pulse Rate 141 H 137 H 136 H Respiratory Rate Blood Pressure Pulse Oximetry Oxygen Delivery Oxygen Flow Rate 09/01/22 16:00 09/01/22 14:00 09/01/22 16:00 Temperature 98.4 F Pulse Rate 119 H 117 H 123 H Respiratory Rate 26 H Blood Pressure 133/89 Pulse Oximetry 92 Oxygen Delivery Oxygen Flow Rate 09/01/22 18:00 09/01/22 16:00 09/01/22 20:00 Temperature 98.2 F Pulse Rate 123 H 142 H Respiratory Rate 22 H Blood Pressure 148/93 H Pulse Oximetry 96 93 Oxygen Delivery Nasal Cannula Oxygen Flow Rate 1 09/01/22 20:00 09/01/22 21:55 09/01/22 21:55 Temperature Pulse Rate 142 H 123 H 123 H Respiratory Rate 22 H Blood Pressure Pulse Oximetry 93 Oxygen Delivery Nasal Cannula Oxygen Flow Rate 4 09/01/22 22:52 09/01/22 20
[2022-09-02 15:30] LABS: Vancomycin Trough 17.6 ug/mL (10.0-20.0)
[2022-09-02 17:52] LABS: Glucose Point of Care 332 mg/dl (65-105)
[2022-09-02 20:06] LABS: Glucose Point of Care 300 mg/dl (65-105)
[2022-09-03] VITALS (22 sets, daily range): BP systolic 107–137; BP diastolic 68–82; PULSE 85–111; RESP 18–22; TEMP 35.6–36.7; O2SAT 94–98
[2022-09-03 03:00] LABS: Glucose Point of Care 366 mg/dl (65-105)
[2022-09-03] MEDS: dilTIAZem 100 MG/100 ML 100 MG/100 ML BAG 15 MG IV CONT ×3 (03:32→17:57)
[2022-09-03 05:07] LABS: Basophils Percent Auto 0.3 % (0.2-1.2); Eosinophils Absolute Auto 0.1 K/mm3 (0-0.3); Hemoglobin 9.7 g/dL (14.0-18.0); Immature Granulocyte Absolute 0.12 K/mm3 (0.00-0.031); Immature Granulocyte Percent A 0.9 % (0-0.5); Lymphocytes Absolute Auto 1.82 K/mm3 (0.9-3.2); Lymphocytes Percent Auto 13.3 % (18.3-44.2); Mean Corpuscular HGB Conc 31.3 g/dl (32-36); Mean Corpuscular Hemoglobin 26.8 pg (26-34); Mean Corpuscular Volume 85.6 fl (80-100); Monocytes Absolute Auto 0.8 K/mm3 (0.1-0.6); Monocytes Percent Auto 5.8 % (2.6-8.5); Neutrophils Absolute Auto 10.7 K/mm3 (1.3-6.7); Neutrophils Percent Auto 78.7 % (45.5-73.1); Platelet Count Result 270 k/mm3 (150-375); Red Blood Count 3.62 M/mm3 (4.6-6.20); White Blood Count 13.6 K/mm3 (4.5-10.0)
[2022-09-03 05:27] LABS: Anion Gap 9 mmol/L (8-16); Blood Urea Nitrogen 16 mg/dL (9-20); Calcium 7.7 mg/dL (8.4-10.2); Carbon Dioxide 22 mmol/L (22-30); Chloride 103 mmol/L (98-107); Estimated CRCL calculation 113 ml/min; Estimated Glomerular Filt Rate > 60; Glucose 306 mg/dL (65-110); Magnesium 1.7 mg/dL (1.6-2.3); Phosphorus 2.3 mg/dL (2.5-4.5); Potassium 3.8 mmol/L (3.4-5.0); Sodium 134 mmol/L (137-145)
[2022-09-03] MEDS: METOPROLOL TARTRATE 50 MG TAB PO ×3 (05:44→21:08)
[2022-09-03 08:26] LABS: Glucose Point of Care 338 mg/dl (65-105)
[2022-09-03] MEDS: INSULIN ASPART (*BKC) 100 UNITS/ML SUB-Q ×4 (09:05→22:23)
[2022-09-03] MEDS: MICAFUNGIN SODIUM 100 MG in SODIUM CHLORIDE 0.9% IV 100 ML IVPB (09:09)
[2022-09-03] MEDS: APIXABAN 5 MG TABLET PO ×2 (09:10→21:08)
[2022-09-03] MEDS: QUEtiapine FUMARATE 12.5 MG TABLET PO ×2 (09:10→23:11)
[2022-09-03] MEDS: PANTOPRAZOLE SODIUM IV 40 MG VIAL IV PUSH (09:11)
[2022-09-03] MEDS: POTASSIUM CHLORIDE 20 MEQ PACKET (FOR LIQUID) 40 MEQ PO ×2 (09:11→17:59)
[2022-09-03 11:39] LABS: Glucose Point of Care 347 mg/dl (65-105)
--- NOTE | 2022-09-03 12:00 | PM.IMPN ---
Progress Note: A&P Assessment and Plan (1) Sepsis: Qualifiers: Sepsis type: sepsis due to unspecified organism Sepsis acute organ dysfunction status: with acute organ dysfunction Severe sepsis acute organ dysfunction type: encephalopathy Severe sepsis shock status: without septic shock Qualified Code(s): A41.9 - Sepsis, unspecified organism; R65.20 - Severe sepsis without septic shock; G93.40 - Encephalopathy, unspecified Code(s): A41.9 - Sepsis, unspecified organism Status: Acute Assessment and Plan: Sepsis likely from UTI with associated obstructive uropathy, with mild bilateral hydronephrosis. Continue Mace, cultures pending Continue vanc and cefepime 09/01: Both blood and urine cultures came back positive for Nora glabrata, micafungin initiated 09/02: Continue micafungin, check repeat blood cultures tomorrow Repeat blood culture today (2) Atrial fibrillation with RVR: Code(s): I48.91 - Unspecified atrial fibrillation Status: Acute Assessment and Plan: Continue Cardizem drip, appreciate cardiology consultation EF greater than 70%, indeterminate diastolic function, no valvular abnormalities or pulmonary hypertension noted Uncontrolled maxed out on Cardizem drip, oral metoprolol added Remains on diltiazem drip per cardiology (3) Acute kidney injury: Code(s): N17.9 - Acute kidney failure, unspecified Status: Acute Assessment and Plan: 3.7 on admission. Mace placed Currently resolved Renal ultrasound with mild bilateral hydronephrosis (4) Acute UTI: Code(s): N39.0 - Urinary tract infection, site not specified Status: Acute Assessment and Plan: Continue antibiotics for now, started micafungin due to Nora found in urine as well as blood (5) Obstructive uropathy: Code(s): N13.9 - Obstructive and reflux uropathy, unspecified Status: Acute Assessment and Plan: Continue Mace (6) Diabetes mellitus with hyperglycemia, with long-term current use of insulin: Code(s): E11.65 - Type 2 diabetes mellitus with hyperglycemia; Z79.4 - [facility] (current) use of insulin Status: Acute Assessment and Plan: Continue Accu-Chek, sliding scale insulin He takes Levemir 50 units Novolin R 20 units with meals along with metformin at home restart lantus/lispro half of home dose (7) Metabolic encephalopathy: Code(s): G93.41 - Metabolic encephalopathy Status: Acute Assessment and Plan: likely multifactorial, plan as above (8) Fungemia: Code(s): B49 - Unspecified mycosis Status: Acute Assessment and Plan: Nora glabrata in blood culture x2 Repeat blood culture today Echocardiogram with EF more than 70% will discuss with id pharmacist Plan History of bipolar disorder Dementia Acute on Chronic atrial fibrillation with RVR on presentation on Eliquis and metoprolol. Started on diltiazem drip on admission Cardiomyopathy Morbid obesity assisted resident baseline alert oriented to person only DVT prophylaxis with Eliquis GI prophylaxis not indicated Code status full code Subjective Date/time seen: 09/03/22 12:00 Interval history: No overnight events reported. Chart reviewed. Mario with acute renal failure with creatinine of 3.7. Evidence of UTI. Remains afebrile. he is more awake answers some questions but is hard to understand Review of Systems Review of Systems: All systems reviewed & are unremarkable except as noted in HPI and below Exam Narrative: General: Appears to be at baseline mentation, alert oriented to self and place, not to time; morbid obesity HEENT: Atraumatic, normocephalic, mucous membranes moist CV: Irregularly irregular, S1, S2 Lungs: Diminished throughout, scattered wheezes Abdomen: Soft, nontender, nondistended Extremities: Normal to inspection Skin: No rashes noted, no lesions or wounds seen Psych: Desiree
[2022-09-03] MEDS: INSULIN GLARGINE (*BKC) 100 UNITS/ML 25 UNITS SUB-Q (12:37)
[2022-09-03 14:12] LABS: Hemoglobin A1C 11.2 % (<5.7)
[2022-09-03 16:48] LABS: Glucose Point of Care 377 mg/dl (65-105)
[2022-09-03] MEDS: INSULIN ASPART (*BKC) 100 UNITS/ML 10 UNITS SUB-Q (17:57)
[2022-09-03 20:33] LABS: Glucose Point of Care 325 mg/dl (65-105)
[2022-09-04] VITALS (24 sets, daily range): BP systolic 120–140; BP diastolic 64–90; PULSE 87–111; RESP 20–22; TEMP 35.8–36.7; O2SAT 95–97
[2022-09-04] MEDS: dilTIAZem 100 MG/100 ML 100 MG/100 ML BAG 15 MG IV CONT ×3 (01:12→14:58)
[2022-09-04 05:01] LABS: Basophils Percent Auto 0.2 % (0.2-1.2); Eosinophils Absolute Auto 0.2 K/mm3 (0-0.3); Eosinophils Percent Auto 1.4 % (0-4.4); Hematocrit 32.5 % (42.0-52.0); Hemoglobin 10.1 g/dL (14.0-18.0); Immature Granulocyte Absolute 0.11 K/mm3 (0.00-0.031); Immature Granulocyte Percent A 0.9 % (0-0.5); Lymphocytes Absolute Auto 1.73 K/mm3 (0.9-3.2); Lymphocytes Percent Auto 13.9 % (18.3-44.2); Mean Corpuscular HGB Conc 31.1 g/dl (32-36); Mean Corpuscular Hemoglobin 27.2 pg (26-34); Mean Corpuscular Volume 87.4 fl (80-100); Mean Platelet Volume 9.8 fl (7.4-10.4); Monocytes Absolute Auto 0.8 K/mm3 (0.1-0.6); Monocytes Percent Auto 6.2 % (2.6-8.5); Neutrophils Absolute Auto 9.7 K/mm3 (1.3-6.7); Neutrophils Percent Auto 77.4 % (45.5-73.1); Nucleated Red Blood Cells Perc 0.2 % (0.0-0.2); Platelet Count Result 307 k/mm3 (150-375); Red Blood Count 3.72 M/mm3 (4.6-6.20); Red Cell Distribution Width 13.2 % (11.5-14.5); White Blood Count 12.5 K/mm3 (4.5-10.0)
[2022-09-04 05:17] LABS: Alanine Aminotransferase 74 U/L (6-50); Albumin Level 2.8 g/dL (3.5-5.1); Alkaline Phosphatase 70 U/L (38-126); Anion Gap 5 mmol/L (8-16); Aspartate Amino Transferase 59 U/L (17-59); Bilirubin,Total 0.6 mg/dL (0.2-1.3); Blood Urea Nitrogen 13 mg/dL (9-20); Calcium 7.8 mg/dL (8.4-10.2); Carbon Dioxide 25 mmol/L (22-30); Chloride 105 mmol/L (98-107); Estimated CRCL calculation 127 ml/min; Estimated Glomerular Filt Rate > 60; Glucose 282 mg/dL (65-110); Magnesium 1.6 mg/dL (1.6-2.3); Phosphorus 2.3 mg/dL (2.5-4.5); Potassium 3.5 mmol/L (3.4-5.0); Sodium 135 mmol/L (137-145)
[2022-09-04] MEDS: METOPROLOL TARTRATE 50 MG TAB PO ×3 (05:39→20:33)
[2022-09-04 08:22] LABS: Glucose Point of Care 282 mg/dl (65-105)
[2022-09-04] MEDS: APIXABAN 5 MG TABLET PO ×2 (08:27→20:34)
[2022-09-04] MEDS: PANTOPRAZOLE SODIUM IV 40 MG VIAL IV PUSH (08:28)
[2022-09-04] MEDS: POTASSIUM CHLORIDE 20 MEQ PACKET (FOR LIQUID) 40 MEQ PO ×2 (08:28→18:05)
[2022-09-04] MEDS: INSULIN ASPART (*BKC) 100 UNITS/ML SUB-Q ×3 (08:29→18:05)
[2022-09-04] MEDS: INSULIN ASPART (*BKC) 100 UNITS/ML 10 UNITS SUB-Q ×2 (08:29→13:04)
[2022-09-04] MEDS: INSULIN GLARGINE (*BKC) 100 UNITS/ML 25 UNITS SUB-Q ×2 (08:30→20:34)
[2022-09-04] MEDS: QUEtiapine FUMARATE 12.5 MG TABLET PO ×2 (08:32→20:33)
[2022-09-04] MEDS: MICAFUNGIN SODIUM 100 MG in SODIUM CHLORIDE 0.9% IV 100 ML IVPB (08:36)
[2022-09-04 09:23] LABS: Vancomycin Trough 10.7 ug/mL (10.0-20.0)
--- NOTE | 2022-09-04 09:55 | PM.PNCARD ---
Progress Note: A&P Assessment and Plan (1) Atrial fibrillation with RVR: Code(s): I48.91 - Unspecified atrial fibrillation Status: Acute Assessment and Plan: Persistent AFib with RVR in the setting of sepsis. Jackie had apparently been held since 08/30, but has now been resumed. At this point he is reasonably rate controlled on diltiazem 15mg/hr and metoprolol 50mg q8h. Will shift him to p.o. diltiazem today 60mg q6h and will continue metoprolol 50mg q8h. Hope to be able to come down on these doses before discharge. Would also recommend shifting to long acting diltiazem and metoprolol on discharge. Cardiology will follow along on an as needed basis. (2) Metabolic encephalopathy: Code(s): G93.41 - Metabolic encephalopathy Status: Acute Assessment and Plan: Stable, history of bipolar disorder. Management per primary service. (3) Acute UTI: Code(s): N39.0 - Urinary tract infection, site not specified Status: Acute Assessment and Plan: IV antibiotics. Management per primary service. (4) Hypokalemia: Code(s): E87.6 - Hypokalemia Status: Acute Assessment and Plan: Replete K+ to maintain around 4.0 (5) Acute kidney injury: Code(s): N17.9 - Acute kidney failure, unspecified Status: Acute Assessment and Plan: Resolved. (6) Sepsis: Qualifiers: Sepsis acute organ dysfunction status: with acute organ dysfunction Sepsis type: sepsis due to unspecified organism Severe sepsis acute organ dysfunction type: encephalopathy Severe sepsis shock status: without septic shock Qualified Code(s): A41.9 - Sepsis, unspecified organism; R65.20 - Severe sepsis without septic shock; G93.40 - Encephalopathy, unspecified Code(s): A41.9 - Sepsis, unspecified organism Status: Acute Assessment and Plan: Management per primary service. (7) Diabetes mellitus with hyperglycemia, with long-term current use of insulin: Code(s): E11.65 - Type 2 diabetes mellitus with hyperglycemia; Z79.4 - prison (current) use of insulin Status: Acute Assessment and Plan: Per primary service. Subjective Date/time seen: 09/04/22 09:55 Cardiology follow up for atrial fibrillation No major changes overnight. Remains in strial fibrillation with rate controlled. No complaints. Review of Systems Review of Systems: All systems reviewed & are unremarkable except as noted in HPI and below Constitutional: Constitutional: Reports as per HPI and Reports no additional constitutional complaints Eyes: Eyes: Reports as per HPI and Reports no additional eye complaints ENT: Reports system reviewed and no additional complaints, except as documented and Reports as per HPI Cardiovascular: Cardiovascular: Reports as per HPI and Reports no additional cardiovascular complaints Respiratory: Respiratory: Reports as per HPI and Reports no additional respiratory complaints Gastrointestinal: Gastrointestinal: Reports as per HPI and Reports no additional gastrointestinal complaints Genitourinary: Genitourinary: Reports no additional male genitourinary complaints and Reports as per HPI Musculoskeletal: Musculoskeletal: Reports no additional musculoskeletal complaints and Reports as per HPI Integumentary/Breasts: Skin/Breast: Reports system reviewed and no additional complaints, except as docu and Reports as per HPI Neurologic: Reports system reviewed and no additional complaints, except as documented and Reports as per HPI Psychiatric: Psychiatric: Reports no additional psychiatric complaints and Reports as per HPI Endocrine: Endocrine: Reports no additional endocrine complaints and Reports as per HPI Hematologic/Lymphatic: Hematologic/Lymphatic: Reports no additional hematologic/lymphatic complaints and Reports as per HPI Allergic/Immunologic: Allergic/Immunologic: Reports no additional allergic/immunologic complaints and Reports as
[2022-09-04 11:58] LABS: Glucose Point of Care 361 mg/dl (65-105)
[2022-09-04 16:35] LABS: Glucose Point of Care 282 mg/dl (65-105)
--- NOTE | 2022-09-04 17:13 | PM.IMPN ---
Progress Note: A&P Assessment and Plan (1) Sepsis: Qualifiers: Sepsis type: sepsis due to unspecified organism Sepsis acute organ dysfunction status: with acute organ dysfunction Severe sepsis acute organ dysfunction type: encephalopathy Severe sepsis shock status: without septic shock Qualified Code(s): A41.9 - Sepsis, unspecified organism; R65.20 - Severe sepsis without septic shock; G93.40 - Encephalopathy, unspecified Code(s): A41.9 - Sepsis, unspecified organism Status: Acute Assessment and Plan: Sepsis likely from UTI with associated obstructive uropathy, with mild bilateral hydronephrosis. Continue Mace, cultures pending Continue vanc and cefepime 09/01: Both blood and urine cultures came back positive for Nora glabrata, micafungin initiated 09/02: Continue micafungin, check repeat blood cultures tomorrow Repeat blood culture today Will stop vancomycin and cefepime (2) Atrial fibrillation with RVR: Code(s): I48.91 - Unspecified atrial fibrillation Status: Acute Assessment and Plan: Continue Cardizem drip, appreciate cardiology consultation EF greater than 70%, indeterminate diastolic function, no valvular abnormalities or pulmonary hypertension noted Uncontrolled maxed out on Cardizem drip, oral metoprolol added Remains on diltiazem drip per cardiology (3) Acute kidney injury: Code(s): N17.9 - Acute kidney failure, unspecified Status: Acute Assessment and Plan: 3.7 on admission. Mace placed Currently resolved Renal ultrasound with mild bilateral hydronephrosis (4) Acute UTI: Code(s): N39.0 - Urinary tract infection, site not specified Status: Acute Assessment and Plan: Continue antibiotics for now, started micafungin due to Nora found in urine as well as blood (5) Obstructive uropathy: Code(s): N13.9 - Obstructive and reflux uropathy, unspecified Status: Acute Assessment and Plan: Continue Mace (6) Diabetes mellitus with hyperglycemia, with long-term current use of insulin: Code(s): E11.65 - Type 2 diabetes mellitus with hyperglycemia; Z79.4 - [employer] (current) use of insulin Status: Acute Assessment and Plan: Continue Accu-Chek, sliding scale insulin He takes Levemir 50 units Novolin R 20 units with meals along with metformin at home restart lantus/lispro half of home dose Increase Lantus and lispro (7) Metabolic encephalopathy: Code(s): G93.41 - Metabolic encephalopathy Status: Acute Assessment and Plan: likely multifactorial, plan as above (8) Fungemia: Code(s): B49 - Unspecified mycosis Status: Acute Assessment and Plan: Nora glabrata in blood culture x2 Repeat blood culture today Echocardiogram with EF more than 70% will discuss with id pharmacist Plan History of bipolar disorder Dementia Acute on Chronic atrial fibrillation with RVR on presentation on Eliquis and metoprolol. Started on diltiazem drip on admission Cardiomyopathy Morbid obesity [facility] resident baseline alert oriented to person only DVT prophylaxis with Eliquis GI prophylaxis not indicated Code status full code Subjective Date/time seen: 09/04/22 17:13 Interval history: No overnight events. Heart rate is controlled. Remains on Cardizem drip. Denies any new complaints. No pains reported. Review of Systems Review of Systems: All systems reviewed & are unremarkable except as noted in HPI and below Exam Narrative: General: Appears to be at baseline mentation, alert oriented to self and place, not to time; morbid obesity HEENT: Atraumatic, normocephalic, mucous membranes moist CV: Irregularly irregular, S1, S2 Lungs: Diminished throughout, scattered wheezes Abdomen: Soft, nontender, nondistended Extremities: Normal to inspection Skin: No rashes noted, no lesions or wounds seen Psych: Unable to assess Obj
[2022-09-04] MEDS: dilTIAZem HCL 60 MG TABLET PO ×2 (18:05→23:23)
[2022-09-04] MEDS: FUROSEMIDE INJ 40 MG/4 ML VIAL 20 MG IV PUSH (18:05)
[2022-09-04 20:23] LABS: Glucose Point of Care 335 mg/dl (65-105)
[2022-09-05] VITALS (17 sets, daily range): BP systolic 100–131; BP diastolic 66–88; PULSE 85–122; RESP 18–22; TEMP 35.6–36.8; O2SAT 92–97
[2022-09-05 05:08] LABS: Basophils Percent Auto 0.4 % (0.2-1.2); Eosinophils Absolute Auto 0.3 K/mm3 (0-0.3); Eosinophils Percent Auto 2.5 % (0-4.4); Hematocrit 33.1 % (42.0-52.0); Hemoglobin 10.4 g/dL (14.0-18.0); Immature Granulocyte Percent A 0.9 % (0-0.5); Lymphocytes Absolute Auto 2.14 K/mm3 (0.9-3.2); Lymphocytes Percent Auto 19.3 % (18.3-44.2); Mean Corpuscular HGB Conc 31.4 g/dl (32-36); Mean Corpuscular Hemoglobin 27.4 pg (26-34); Mean Corpuscular Volume 87.1 fl (80-100); Mean Platelet Volume 9.9 fl (7.4-10.4); Monocytes Absolute Auto 0.8 K/mm3 (0.1-0.6); Monocytes Percent Auto 7.5 % (2.6-8.5); Neutrophils Absolute Auto 7.7 K/mm3 (1.3-6.7); Neutrophils Percent Auto 69.4 % (45.5-73.1); Platelet Count Result 313 k/mm3 (150-375); Red Cell Distribution Width 13.2 % (11.5-14.5); White Blood Count 11.1 K/mm3 (4.5-10.0)
[2022-09-05] MEDS: dilTIAZem HCL 60 MG TABLET PO ×4 (05:12→23:51)
[2022-09-05] MEDS: METOPROLOL TARTRATE 50 MG TAB PO ×3 (05:12→21:01)
[2022-09-05 05:16] LABS: Alanine Aminotransferase 65 U/L (6-50); Albumin Level 2.9 g/dL (3.5-5.1); Alkaline Phosphatase 70 U/L (38-126); Anion Gap 6 mmol/L (8-16); Aspartate Amino Transferase 49 U/L (17-59); Bilirubin,Total 0.6 mg/dL (0.2-1.3); Blood Urea Nitrogen 10 mg/dL (9-20); Carbon Dioxide 25 mmol/L (22-30); Chloride 107 mmol/L (98-107); Estimated CRCL calculation 127 ml/min; Estimated Glomerular Filt Rate > 60; Glucose 244 mg/dL (65-110); Magnesium 1.6 mg/dL (1.6-2.3); Potassium 3.6 mmol/L (3.4-5.0); Sodium 138 mmol/L (137-145)
[2022-09-05 07:54] LABS: Glucose Point of Care 283 mg/dl (65-105)
[2022-09-05] MEDS: MICAFUNGIN SODIUM 100 MG in SODIUM CHLORIDE 0.9% IV 100 ML IVPB (09:02)
[2022-09-05] MEDS: QUEtiapine FUMARATE 12.5 MG TABLET PO ×2 (09:02→21:02)
[2022-09-05] MEDS: INSULIN GLARGINE (*BKC) 100 UNITS/ML 25 UNITS SUB-Q (09:02)
[2022-09-05] MEDS: POTASSIUM CHLORIDE 20 MEQ PACKET (FOR LIQUID) 40 MEQ PO ×2 (09:02→17:05)
[2022-09-05] MEDS: PANTOPRAZOLE SODIUM IV 40 MG VIAL IV PUSH (09:02)
[2022-09-05] MEDS: APIXABAN 5 MG TABLET PO ×2 (09:03→21:02)
[2022-09-05] MEDS: INSULIN ASPART (*BKC) 100 UNITS/ML 15 UNITS SUB-Q ×3 (09:03→17:14)
[2022-09-05] MEDS: INSULIN ASPART (*BKC) 100 UNITS/ML SUB-Q ×3 (09:03→17:14)
--- NOTE | 2022-09-05 09:44 | PCNFU ---
Nutrition Follow-Up Complete: Suboptimal po intake related to reduced appetite and intake as evidenced by pt report. Goal:PO intake 75% of meals and supplements, Pt is progressing towards goal. Pt current nutrition is Diabetic consistent carb. Nutrition recommendation: Add BREANNE BID for wound healing Last recorded weight is 124.8 kg - stable at this time Bowel Motility: +BM 09/04 Labs Reviewed: Hgb:10.4, HCT:33.1, Alb:2.9, Glu:244 Meds Noted: eliqudakota, novolog Skin: DTPI to buttocks Additional Notes: Pt continues on a diabetic diet, intake 50% average at this time. Ensure compact BID in place. Pt has a new DTPI to buttocks. Recommend to add BREANNE BID. Monitor intake, wt, labs. Follow up in 7 days.
[2022-09-05 11:50] LABS: Glucose Point of Care 293 mg/dl (65-105)
[2022-09-05 17:30] LABS: Glucose Point of Care 246 mg/dl (65-105)
--- NOTE | 2022-09-05 18:18 | PM.IMPN ---
Progress Note: A&P Assessment and Plan (1) Sepsis: Qualifiers: Sepsis type: sepsis due to unspecified organism Sepsis acute organ dysfunction status: with acute organ dysfunction Severe sepsis acute organ dysfunction type: encephalopathy Severe sepsis shock status: without septic shock Qualified Code(s): A41.9 - Sepsis, unspecified organism; R65.20 - Severe sepsis without septic shock; G93.40 - Encephalopathy, unspecified Code(s): A41.9 - Sepsis, unspecified organism Status: Acute Assessment and Plan: Sepsis likely from UTI with associated obstructive uropathy, with mild bilateral hydronephrosis. Continue Mace, cultures pending Continue vanc and cefepime 09/01: Both blood and urine cultures came back positive for Nora glabrata, micafungin initiated 09/02: Continue micafungin, check repeat blood cultures tomorrow Repeat blood culture today Will stop vancomycin and cefepime (2) Atrial fibrillation with RVR: Code(s): I48.91 - Unspecified atrial fibrillation Status: Acute Assessment and Plan: Continue Cardizem drip, appreciate cardiology consultation EF greater than 70%, indeterminate diastolic function, no valvular abnormalities or pulmonary hypertension noted Uncontrolled maxed out on Cardizem drip, oral metoprolol added Remains on diltiazem drip per cardiology transition to oral Cardizem Continue to monitor heart rate. (3) Acute kidney injury: Code(s): N17.9 - Acute kidney failure, unspecified Status: Acute Assessment and Plan: 3.7 on admission. Mace placed Currently resolved Renal ultrasound with mild bilateral hydronephrosis (4) Acute UTI: Code(s): N39.0 - Urinary tract infection, site not specified Status: Acute Assessment and Plan: Continue antibiotics for now, started micafungin due to Nora found in urine as well as blood (5) Obstructive uropathy: Code(s): N13.9 - Obstructive and reflux uropathy, unspecified Status: Acute Assessment and Plan: Continue Mace (6) Diabetes mellitus with hyperglycemia, with long-term current use of insulin: Code(s): E11.65 - Type 2 diabetes mellitus with hyperglycemia; Z79.4 - retirement (current) use of insulin Status: Acute Assessment and Plan: Continue Accu-Chek, sliding scale insulin He takes Levemir 50 units Novolin R 20 units with meals along with metformin at home restart lantus/lispro half of home dose Increase Lantus and lispro (7) Metabolic encephalopathy: Code(s): G93.41 - Metabolic encephalopathy Status: Acute Assessment and Plan: likely multifactorial, plan as above (8) Fungemia: Code(s): B49 - Unspecified mycosis Status: Acute Assessment and Plan: Nora glabrata in blood culture x2 Repeat blood culture today Echocardiogram with EF more than 70% will discuss with id pharmacist Plan Sicker decubitus ulcer stage II with newly found. Wound Care consulted specialty bed History of bipolar disorder Dementia Acute on Chronic atrial fibrillation with RVR on presentation on Eliquis and metoprolol. Started on diltiazem drip on admission Cardiomyopathy Morbid obesity half-way resident baseline alert oriented to person only DVT prophylaxis with Eliquis GI prophylaxis not indicated Code status full code Subjective Date/time seen: 09/05/22 18:18 Interval history: Patient noted to have a stage II decubitus ulcer. Special bed ordered. No other overnight events. Patient denies any new complaint. Heart rate is much controlled. Review of Systems Review of Systems: All systems reviewed & are unremarkable except as noted in HPI and below Exam Narrative: General: Appears to be at baseline mentation, alert oriented to self and place, not to time; morbid obesity HEENT: Atraumatic, normocephalic, mucous membranes moist CV: Irregularly irregular, S1, S2 Lungs: Diminished
[2022-09-05 20:32] LABS: Glucose Point of Care 267 mg/dl (65-105)
[2022-09-05] MEDS: INSULIN GLARGINE (*BKC) 100 UNITS/ML 30 UNITS SUB-Q (21:01)
[2022-09-06] VITALS (10 sets, daily range): BP systolic 105–141; BP diastolic 47–98; PULSE 81–122; RESP 16–20; TEMP 36.2–36.6; O2SAT 94–100
[2022-09-06 04:58] LABS: Basophils Absolute Auto 0.1 K/mm3 (0.0-0.1); Basophils Percent Auto 0.6 % (0.2-1.2); Eosinophils Absolute Auto 0.2 K/mm3 (0-0.3); Eosinophils Percent Auto 2.3 % (0-4.4); Hematocrit 34.4 % (42.0-52.0); Hemoglobin 10.8 g/dL (14.0-18.0); Immature Granulocyte Absolute 0.07 K/mm3 (0.00-0.031); Immature Granulocyte Percent A 0.8 % (0-0.5); Lymphocytes Absolute Auto 2.16 K/mm3 (0.9-3.2); Lymphocytes Percent Auto 23.8 % (18.3-44.2); Mean Corpuscular HGB Conc 31.4 g/dl (32-36); Mean Corpuscular Hemoglobin 27.3 pg (26-34); Mean Corpuscular Volume 86.9 fl (80-100); Mean Platelet Volume 9.9 fl (7.4-10.4); Monocytes Absolute Auto 0.8 K/mm3 (0.1-0.6); Monocytes Percent Auto 8.8 % (2.6-8.5); Neutrophils Absolute Auto 5.8 K/mm3 (1.3-6.7); Neutrophils Percent Auto 63.7 % (45.5-73.1); Platelet Count Result 321 k/mm3 (150-375); Red Blood Count 3.96 M/mm3 (4.6-6.20); Red Cell Distribution Width 13.3 % (11.5-14.5); White Blood Count 9.1 K/mm3 (4.5-10.0)
[2022-09-06 05:06] LABS: Alanine Aminotransferase 58 U/L (6-50); Alkaline Phosphatase 67 U/L (38-126); Anion Gap 3 mmol/L (8-16); Aspartate Amino Transferase 46 U/L (17-59); Bilirubin,Total 0.5 mg/dL (0.2-1.3); Blood Urea Nitrogen 9 mg/dL (9-20); Calcium 8.4 mg/dL (8.4-10.2); Carbon Dioxide 27 mmol/L (22-30); Chloride 104 mmol/L (98-107); Estimated CRCL calculation 127 ml/min; Estimated Glomerular Filt Rate > 60; Glucose 236 mg/dL (65-110); Magnesium 1.5 mg/dL (1.6-2.3); Potassium 3.6 mmol/L (3.4-5.0); Sodium 134 mmol/L (137-145)
[2022-09-06] MEDS: dilTIAZem HCL 60 MG TABLET PO ×4 (05:16→23:50)
[2022-09-06] MEDS: METOPROLOL TARTRATE 50 MG TAB PO ×3 (05:16→21:45)
[2022-09-06 08:14] LABS: Glucose Point of Care 247 mg/dl (65-105)
[2022-09-06] MEDS: MICAFUNGIN SODIUM 100 MG in SODIUM CHLORIDE 0.9% IV 100 ML IVPB (08:36)
[2022-09-06] MEDS: PANTOPRAZOLE SODIUM IV 40 MG VIAL IV PUSH (08:37)
[2022-09-06] MEDS: QUEtiapine FUMARATE 12.5 MG TABLET PO ×2 (08:37→20:43)
[2022-09-06] MEDS: APIXABAN 5 MG TABLET PO ×2 (08:37→20:44)
[2022-09-06] MEDS: POTASSIUM CHLORIDE 20 MEQ PACKET (FOR LIQUID) 40 MEQ PO ×2 (08:37→17:27)
[2022-09-06] MEDS: INSULIN GLARGINE (*BKC) 100 UNITS/ML 35 UNITS SUB-Q ×2 (08:41→20:52)
[2022-09-06] MEDS: INSULIN ASPART (*BKC) 100 UNITS/ML SUB-Q ×2 (08:42→12:14)
[2022-09-06] MEDS: INSULIN ASPART (*BKC) 100 UNITS/ML 20 UNITS SUB-Q ×3 (08:43→17:31)
[2022-09-06] MEDS: MAGNESIUM SULF 2 GM/WATER 50ML 2 GM/50 ML BAG IVPB (08:59)
[2022-09-06 12:54] LABS: Glucose Point of Care 202 mg/dl (65-105)
--- NOTE | 2022-09-06 14:28 | PM.IMPN ---
Progress Note: A&P Assessment and Plan (1) Sepsis: Qualifiers: Sepsis type: sepsis due to unspecified organism Sepsis acute organ dysfunction status: with acute organ dysfunction Severe sepsis acute organ dysfunction type: encephalopathy Severe sepsis shock status: without septic shock Qualified Code(s): A41.9 - Sepsis, unspecified organism; R65.20 - Severe sepsis without septic shock; G93.40 - Encephalopathy, unspecified Code(s): A41.9 - Sepsis, unspecified organism Status: Acute Assessment and Plan: Sepsis likely from UTI with associated obstructive uropathy, with mild bilateral hydronephrosis. Continue Mace, cultures pending Continue vanc and cefepime 09/01: Both blood and urine cultures came back positive for Nora glabrata, micafungin initiated 09/02: Continue micafungin, check repeat blood cultures tomorrow Repeat blood culture no growth to date Vancomycin and cefepime stopped (2) Atrial fibrillation with RVR: Code(s): I48.91 - Unspecified atrial fibrillation Status: Acute Assessment and Plan: Continue Cardizem drip, appreciate cardiology consultation EF greater than 70%, indeterminate diastolic function, no valvular abnormalities or pulmonary hypertension noted Uncontrolled maxed out on Cardizem drip, oral metoprolol added Remains on diltiazem drip per cardiology transition to oral Cardizem Continue to monitor heart rate. (3) Acute kidney injury: Code(s): N17.9 - Acute kidney failure, unspecified Status: Acute Assessment and Plan: 3.7 on admission. Mace placed Currently resolved Renal ultrasound with mild bilateral hydronephrosis (4) Acute UTI: Code(s): N39.0 - Urinary tract infection, site not specified Status: Acute Assessment and Plan: Continue antibiotics for now, started micafungin due to Nora found in urine as well as blood (5) Obstructive uropathy: Code(s): N13.9 - Obstructive and reflux uropathy, unspecified Status: Acute Assessment and Plan: Continue Mace (6) Diabetes mellitus with hyperglycemia, with long-term current use of insulin: Code(s): E11.65 - Type 2 diabetes mellitus with hyperglycemia; Z79.4 - shelter (current) use of insulin Status: Acute Assessment and Plan: Continue Accu-Chek, sliding scale insulin He takes Levemir 50 units Novolin R 20 units with meals along with metformin at home restart lantus/lispro half of home dose Increase Lantus and lispro (7) Metabolic encephalopathy: Code(s): G93.41 - Metabolic encephalopathy Status: Acute Assessment and Plan: likely multifactorial, plan as above (8) Fungemia: Code(s): B49 - Unspecified mycosis Status: Acute Assessment and Plan: Nora glabrata in blood culture x2 Repeat blood culture today Echocardiogram with EF more than 70% will discuss with id pharmacist Plan Sicker decubitus ulcer stage II with newly found. Wound Care consulted specialty bed History of bipolar disorder Dementia Acute on Chronic atrial fibrillation with RVR on presentation on Eliquis and metoprolol. Started on diltiazem drip on admission Cardiomyopathy Morbid obesity snf resident baseline alert oriented to person only DVT prophylaxis with Eliquis GI prophylaxis not indicated Code status full code Subjective Date/time seen: 09/06/22 14:28 Interval history: No overnight events. Denies any abdominal pain nausea vomiting. Asks for [employer] Review of Systems Review of Systems: All systems reviewed & are unremarkable except as noted in HPI and below Exam Narrative: General: Appears to be at baseline mentation, alert oriented to self and place, not to time; morbid obesity HEENT: Atraumatic, normocephalic, mucous membranes moist CV: Irregularly irregular, S1, S2 Lungs: Diminished throughout, scattered wheezes Abdomen: Soft, nontender, nondistended Ext
[2022-09-06 17:39] LABS: Glucose Point of Care 146 mg/dl (65-105)
[2022-09-06 20:53] LABS: Glucose Point of Care 155 mg/dl (65-105)
[2022-09-07] VITALS (12 sets, daily range): BP systolic 102–118; BP diastolic 55–63; PULSE 50–121; RESP 20–22; TEMP 36.1–36.6; O2SAT 91–100
[2022-09-07 04:52] LABS: Basophils Percent Auto 0.4 % (0.2-1.2); Eosinophils Absolute Auto 0.2 K/mm3 (0-0.3); Eosinophils Percent Auto 1.6 % (0-4.4); Hematocrit 35.3 % (42.0-52.0); Immature Granulocyte Absolute 0.08 K/mm3 (0.00-0.031); Immature Granulocyte Percent A 0.7 % (0-0.5); Lymphocytes Absolute Auto 2.36 K/mm3 (0.9-3.2); Lymphocytes Percent Auto 21.7 % (18.3-44.2); Mean Corpuscular HGB Conc 31.2 g/dl (32-36); Mean Corpuscular Volume 86.7 fl (80-100); Mean Platelet Volume 9.8 fl (7.4-10.4); Monocytes Absolute Auto 1.1 K/mm3 (0.1-0.6); Monocytes Percent Auto 10.4 % (2.6-8.5); Neutrophils Absolute Auto 7.1 K/mm3 (1.3-6.7); Neutrophils Percent Auto 65.2 % (45.5-73.1); Platelet Count Result 361 k/mm3 (150-375); Red Blood Count 4.07 M/mm3 (4.6-6.20); Red Cell Distribution Width 13.6 % (11.5-14.5); White Blood Count 10.9 K/mm3 (4.5-10.0)
[2022-09-07 05:04] LABS: Alanine Aminotransferase 54 U/L (6-50); Albumin Level 3.2 g/dL (3.5-5.1); Alkaline Phosphatase 69 U/L (38-126); Anion Gap 6 mmol/L (8-16); Aspartate Amino Transferase 41 U/L (17-59); Bilirubin,Total 0.4 mg/dL (0.2-1.3); Blood Urea Nitrogen 7 mg/dL (9-20); Calcium 8.5 mg/dL (8.4-10.2); Carbon Dioxide 24 mmol/L (22-30); Chloride 104 mmol/L (98-107); Estimated CRCL calculation 127 ml/min; Estimated Glomerular Filt Rate > 60; Glucose 202 mg/dL (65-110); Magnesium 1.8 mg/dL (1.6-2.3); Potassium 4.1 mmol/L (3.4-5.0); Sodium 134 mmol/L (137-145)
[2022-09-07] MEDS: METOPROLOL TARTRATE 50 MG TAB PO ×3 (06:13→21:19)
[2022-09-07] MEDS: dilTIAZem HCL 60 MG TABLET PO ×3 (06:13→17:00)
[2022-09-07 08:16] LABS: Glucose Point of Care 227 mg/dl (65-105)
[2022-09-07] MEDS: MICAFUNGIN SODIUM 100 MG in SODIUM CHLORIDE 0.9% IV 100 ML IVPB (08:46)
[2022-09-07] MEDS: INSULIN ASPART (*BKC) 100 UNITS/ML 20 UNITS SUB-Q ×3 (08:49→16:49)
[2022-09-07] MEDS: INSULIN ASPART (*BKC) 100 UNITS/ML SUB-Q ×2 (08:49→11:42)
[2022-09-07] MEDS: POTASSIUM CHLORIDE 20 MEQ PACKET (FOR LIQUID) 40 MEQ PO ×2 (08:49→16:50)
[2022-09-07] MEDS: INSULIN GLARGINE (*BKC) 100 UNITS/ML 35 UNITS SUB-Q ×2 (08:49→21:18)
[2022-09-07] MEDS: QUEtiapine FUMARATE 12.5 MG TABLET PO ×2 (08:50→21:19)
[2022-09-07] MEDS: PANTOPRAZOLE SODIUM IV 40 MG VIAL IV PUSH (08:50)
[2022-09-07] MEDS: APIXABAN 5 MG TABLET PO ×2 (08:50→21:19)
[2022-09-07 11:03] LABS: Vancomycin Trough < 5.0 ug/mL (10.0-20.0)
[2022-09-07 12:03] LABS: Glucose Point of Care 236 mg/dl (65-105)
--- NOTE | 2022-09-07 13:57 | PM.IMPN ---
Progress Note: A&P Assessment and Plan (1) Sepsis: Qualifiers: Sepsis type: sepsis due to unspecified organism Sepsis acute organ dysfunction status: with acute organ dysfunction Severe sepsis acute organ dysfunction type: encephalopathy Severe sepsis shock status: without septic shock Qualified Code(s): A41.9 - Sepsis, unspecified organism; R65.20 - Severe sepsis without septic shock; G93.40 - Encephalopathy, unspecified Code(s): A41.9 - Sepsis, unspecified organism Status: Acute Assessment and Plan: Sepsis likely from UTI with associated obstructive uropathy, with mild bilateral hydronephrosis. Continue Mace, cultures pending Continue vanc and cefepime 09/01: Both blood and urine cultures came back positive for Nora glabrata, micafungin initiated 09/02: Continue micafungin, check repeat blood cultures tomorrow Repeat blood culture no growth to date Vancomycin and cefepime stopped (2) Atrial fibrillation with RVR: Code(s): I48.91 - Unspecified atrial fibrillation Status: Acute Assessment and Plan: Continue Cardizem drip, appreciate cardiology consultation EF greater than 70%, indeterminate diastolic function, no valvular abnormalities or pulmonary hypertension noted Uncontrolled maxed out on Cardizem drip, oral metoprolol added Remains on diltiazem drip per cardiology transition to oral Cardizem Continue to monitor heart rate. (3) Acute kidney injury: Code(s): N17.9 - Acute kidney failure, unspecified Status: Acute Assessment and Plan: 3.7 on admission. Mace placed Currently resolved Renal ultrasound with mild bilateral hydronephrosis (4) Acute UTI: Code(s): N39.0 - Urinary tract infection, site not specified Status: Acute Assessment and Plan: Continue antibiotics for now, started micafungin due to Nora found in urine as well as blood (5) Obstructive uropathy: Code(s): N13.9 - Obstructive and reflux uropathy, unspecified Status: Acute Assessment and Plan: Continue Mace (6) Diabetes mellitus with hyperglycemia, with long-term current use of insulin: Code(s): E11.65 - Type 2 diabetes mellitus with hyperglycemia; Z79.4 - [facility] (current) use of insulin Status: Acute Assessment and Plan: Continue Accu-Chek, sliding scale insulin He takes Levemir 50 units Novolin R 20 units with meals along with metformin at home restart lantus/lispro half of home dose Increase Lantus and lispro (7) Metabolic encephalopathy: Code(s): G93.41 - Metabolic encephalopathy Status: Acute Assessment and Plan: likely multifactorial, plan as above (8) Fungemia: Code(s): B49 - Unspecified mycosis Status: Acute Assessment and Plan: Nora glabrata in blood culture x2 Repeat blood culture today Echocardiogram with EF more than 70% will discuss with id pharmacist Plan Sicker decubitus ulcer stage II with newly found. Wound Care consulted specialty bed History of bipolar disorder Dementia Acute on Chronic atrial fibrillation with RVR on presentation on Eliquis and metoprolol. Started on diltiazem drip on admission Cardiomyopathy Morbid obesity [facility] resident baseline alert oriented to person only DVT prophylaxis with Eliquis GI prophylaxis not indicated Code status full code Subjective Date/time seen: 09/07/22 13:57 Interval history: No overnight events. No fever chills. No abdominal pain nausea vomiting. Review of Systems Review of Systems: All systems reviewed & are unremarkable except as noted in HPI and below Exam Narrative: General: Appears to be at baseline mentation, alert oriented to self and place, not to time; morbid obesity HEENT: Atraumatic, normocephalic, mucous membranes moist CV: Irregularly irregular, S1, S2 Lungs: Diminished throughout, scattered wheezes Abdomen: Soft, nontender, nondistended Extremi
[2022-09-07 15:33] LABS: Glucose Point of Care 114 mg/dl (65-105)
--- NOTE | 2022-09-07 16:42 | PC.NURSE ---
This patient, David Fairbanks, was received from [[phone] ] on 09/07/22 at [facility]. Patient/family oriented to unit policies and routines
--- NOTE | 2022-09-07 16:49 | PC.NURSE ---
This patient, David Fairbanks, was transferred to [[id number]] on 09/07/22 at 1645. Personal belongings sent with patient. Report given to [Alicia WINTERS ]. Appropriate documentation sent with patient.
[2022-09-07 22:07] LABS: Glucose Point of Care 189 mg/dl (65-105)
[2022-09-08] VITALS (14 sets, daily range): BP systolic 100–121; BP diastolic 50–88; PULSE 57–120; RESP 18–26; TEMP 36–36.5; O2SAT 92–100
[2022-09-08] MEDS: HYDROcodone/acetaminophen (*CRX) 5-325 MG TABLET 1 TAB PO (00:16)
[2022-09-08] MEDS: dilTIAZem HCL 60 MG TABLET PO ×5 (00:16→23:31)
[2022-09-08] MEDS: METOPROLOL TARTRATE 50 MG TAB PO (05:13)
[2022-09-08 07:02] LABS: Basophils Absolute Auto 0.1 K/mm3 (0.0-0.1); Basophils Percent Auto 0.6 % (0.2-1.2); Eosinophils Absolute Auto 0.2 K/mm3 (0-0.3); Eosinophils Percent Auto 1.9 % (0-4.4); Hematocrit 35.3 % (42.0-52.0); Hemoglobin 11.1 g/dL (14.0-18.0); Immature Granulocyte Absolute 0.04 K/mm3 (0.00-0.031); Immature Granulocyte Percent A 0.5 % (0-0.5); Lymphocytes Absolute Auto 1.94 K/mm3 (0.9-3.2); Mean Corpuscular HGB Conc 31.4 g/dl (32-36); Mean Corpuscular Hemoglobin 27.1 pg (26-34); Mean Corpuscular Volume 86.1 fl (80-100); Mean Platelet Volume 9.4 fl (7.4-10.4); Monocytes Absolute Auto 1.2 K/mm3 (0.1-0.6); Monocytes Percent Auto 13.7 % (2.6-8.5); Neutrophils Absolute Auto 5.4 K/mm3 (1.3-6.7); Neutrophils Percent Auto 61.3 % (45.5-73.1); Platelet Count Result 346 k/mm3 (150-375); Red Cell Distribution Width 13.5 % (11.5-14.5); White Blood Count 8.8 K/mm3 (4.5-10.0)
[2022-09-08 07:32] LABS: Alanine Aminotransferase 51 U/L (6-50); Albumin Level 3.2 g/dL (3.5-5.1); Alkaline Phosphatase 67 U/L (38-126); Anion Gap 7 mmol/L (8-16); Aspartate Amino Transferase 48 U/L (17-59); Bilirubin,Total 0.6 mg/dL (0.2-1.3); Blood Urea Nitrogen 8 mg/dL (9-20); Calcium 8.4 mg/dL (8.4-10.2); Carbon Dioxide 24 mmol/L (22-30); Chloride 107 mmol/L (98-107); Estimated CRCL calculation 133 ml/min; Estimated Glomerular Filt Rate > 60; Glucose 192 mg/dL (65-110); Magnesium 1.7 mg/dL (1.6-2.3); Potassium 3.9 mmol/L (3.4-5.0); Sodium 138 mmol/L (137-145)
[2022-09-08 08:30] LABS: Glucose Point of Care 207 mg/dl (65-105)
[2022-09-08] MEDS: INSULIN ASPART (*BKC) 100 UNITS/ML SUB-Q ×2 (09:23→12:37)
[2022-09-08] MEDS: INSULIN ASPART (*BKC) 100 UNITS/ML 20 UNITS SUB-Q ×2 (09:23→12:38)
[2022-09-08] MEDS: PANTOPRAZOLE SODIUM IV 40 MG VIAL IV PUSH (09:28)
[2022-09-08] MEDS: POTASSIUM CHLORIDE 20 MEQ PACKET (FOR LIQUID) 40 MEQ PO ×2 (09:29→18:28)
[2022-09-08] MEDS: QUEtiapine FUMARATE 12.5 MG TABLET PO ×2 (09:29→21:07)
[2022-09-08] MEDS: APIXABAN 5 MG TABLET PO ×2 (09:29→21:07)
[2022-09-08] MEDS: INSULIN GLARGINE (*BKC) 100 UNITS/ML 35 UNITS SUB-Q (09:35)
[2022-09-08] MEDS: MICAFUNGIN SODIUM 100 MG in SODIUM CHLORIDE 0.9% IV 100 ML IVPB (09:41)
[2022-09-08 12:02] LABS: Glucose Point of Care 287 mg/dl (65-105)
[2022-09-08] MEDS: METOPROLOL TARTRATE 25 MG TABLET 75 MG PO ×2 (14:28→21:07)
--- NOTE | 2022-09-08 16:50 | PM.IMPN ---
Progress Note: A&P Assessment and Plan (1) Sepsis: Qualifiers: Sepsis type: sepsis due to unspecified organism Sepsis acute organ dysfunction status: with acute organ dysfunction Severe sepsis acute organ dysfunction type: encephalopathy Severe sepsis shock status: without septic shock Qualified Code(s): A41.9 - Sepsis, unspecified organism; R65.20 - Severe sepsis without septic shock; G93.40 - Encephalopathy, unspecified Code(s): A41.9 - Sepsis, unspecified organism Status: Acute Assessment and Plan: Sepsis likely from UTI with associated obstructive uropathy, with mild bilateral hydronephrosis. Continue Mace, cultures pending Continue vanc and cefepime 09/01: Both blood and urine cultures came back positive for Nora glabrata, micafungin initiated 09/02: Continue micafungin, check repeat blood cultures tomorrow Repeat blood culture no growth to date Vancomycin and cefepime stopped (2) Atrial fibrillation with RVR: Code(s): I48.91 - Unspecified atrial fibrillation Status: Acute Assessment and Plan: Continue Cardizem drip, appreciate cardiology consultation EF greater than 70%, indeterminate diastolic function, no valvular abnormalities or pulmonary hypertension noted Uncontrolled maxed out on Cardizem drip, oral metoprolol added Remains on diltiazem drip per cardiology transition to oral Cardizem Continue to monitor heart rate. (3) Acute kidney injury: Code(s): N17.9 - Acute kidney failure, unspecified Status: Acute Assessment and Plan: 3.7 on admission. Mace placed Currently resolved Renal ultrasound with mild bilateral hydronephrosis (4) Acute UTI: Code(s): N39.0 - Urinary tract infection, site not specified Status: Acute Assessment and Plan: Continue antibiotics for now, started micafungin due to Nora found in urine as well as blood (5) Obstructive uropathy: Code(s): N13.9 - Obstructive and reflux uropathy, unspecified Status: Acute Assessment and Plan: Continue Mace (6) Diabetes mellitus with hyperglycemia, with long-term current use of insulin: Code(s): E11.65 - Type 2 diabetes mellitus with hyperglycemia; Z79.4 - retirement (current) use of insulin Status: Acute Assessment and Plan: Continue Accu-Chek, sliding scale insulin He takes Levemir 50 units Novolin R 20 units with meals along with metformin at home restart lantus/lispro half of home dose Increase Lantus and lispro (7) Metabolic encephalopathy: Code(s): G93.41 - Metabolic encephalopathy Status: Acute Assessment and Plan: likely multifactorial, plan as above (8) Fungemia: Code(s): B49 - Unspecified mycosis Status: Acute Assessment and Plan: Nora glabrata in blood culture x2 Repeat blood culture today Echocardiogram with EF more than 70% will discuss with id pharmacist Plan Sicker decubitus ulcer stage II with newly found. Wound Care consulted specialty bed History of bipolar disorder Dementia Acute on Chronic atrial fibrillation with RVR on presentation on Eliquis and metoprolol. Started on diltiazem drip on admission Cardiomyopathy Morbid obesity halfway resident baseline alert oriented to person only DVT prophylaxis with Eliquis GI prophylaxis not indicated Code status do not resuscitate Subjective Date/time seen: 09/08/22 16:50 Interval history: No overnight events. No fever chills. No abdominal pain nausea vomiting. Review of Systems Review of Systems: All systems reviewed & are unremarkable except as noted in HPI and below Exam Narrative: General: Appears to be at baseline mentation, alert oriented to self and place, not to time; morbid obesity HEENT: Atraumatic, normocephalic, mucous membranes moist CV: Irregularly irregular, S1, S2 Lungs: Diminished throughout, scattered wheezes Abdomen: Soft, nontender, nondistended
[2022-09-08 17:01] LABS: Glucose Point of Care 108 mg/dl (65-105)
[2022-09-08 22:52] LABS: Glucose Point of Care 160 mg/dl (65-105)
[2022-09-09] VITALS (9 sets, daily range): BP systolic 106–134; BP diastolic 60–87; PULSE 76–105; RESP 14–28; TEMP 35.4–37.4; O2SAT 95–100
[2022-09-09] MEDS: METOPROLOL TARTRATE 25 MG TABLET 75 MG PO ×3 (05:44→21:32)
[2022-09-09] MEDS: dilTIAZem HCL 60 MG TABLET PO ×4 (05:45→23:43)
[2022-09-09 07:37] LABS: Alanine Aminotransferase 46 U/L (6-50); Albumin Level 3.3 g/dL (3.5-5.1); Alkaline Phosphatase 59 U/L (38-126); Anion Gap 4 mmol/L (8-16); Aspartate Amino Transferase 49 U/L (17-59); Bilirubin,Total 0.7 mg/dL (0.2-1.3); Blood Urea Nitrogen 8 mg/dL (9-20); Calcium 8.2 mg/dL (8.4-10.2); Carbon Dioxide 25 mmol/L (22-30); Chloride 103 mmol/L (98-107); Estimated CRCL calculation 133 ml/min; Estimated Glomerular Filt Rate > 60; Glucose 202 mg/dL (65-110); Magnesium 1.7 mg/dL (1.6-2.3); Potassium 4.2 mmol/L (3.4-5.0); Sodium 132 mmol/L (137-145)
[2022-09-09 07:38] LABS: Basophils Percent Auto 0.5 % (0.2-1.2); Eosinophils Absolute Auto 0.2 K/mm3 (0-0.3); Hematocrit 35.7 % (42.0-52.0); Hemoglobin 11.1 g/dL (14.0-18.0); Immature Granulocyte Absolute 0.04 K/mm3 (0.00-0.031); Immature Granulocyte Percent A 0.5 % (0-0.5); Lymphocytes Absolute Auto 1.96 K/mm3 (0.9-3.2); Lymphocytes Percent Auto 23.1 % (18.3-44.2); Mean Corpuscular HGB Conc 31.1 g/dl (32-36); Mean Corpuscular Hemoglobin 26.9 pg (26-34); Mean Corpuscular Volume 86.7 fl (80-100); Mean Platelet Volume 9.5 fl (7.4-10.4); Monocytes Absolute Auto 1.2 K/mm3 (0.1-0.6); Monocytes Percent Auto 13.7 % (2.6-8.5); Neutrophils Absolute Auto 5.1 K/mm3 (1.3-6.7); Neutrophils Percent Auto 60.2 % (45.5-73.1); Platelet Count Result 391 k/mm3 (150-375); Red Blood Count 4.12 M/mm3 (4.6-6.20); Red Cell Distribution Width 13.3 % (11.5-14.5); White Blood Count 8.5 K/mm3 (4.5-10.0)
[2022-09-09 08:51] LABS: Glucose Point of Care 220 mg/dl (65-105)
[2022-09-09] MEDS: PANTOPRAZOLE SODIUM IV 40 MG VIAL IV PUSH (08:56)
[2022-09-09] MEDS: POTASSIUM CHLORIDE 20 MEQ PACKET (FOR LIQUID) 40 MEQ PO ×2 (08:57→17:51)
[2022-09-09] MEDS: INSULIN ASPART (*BKC) 100 UNITS/ML SUB-Q ×3 (08:57→17:52)
[2022-09-09] MEDS: QUEtiapine FUMARATE 12.5 MG TABLET PO ×2 (08:58→21:32)
[2022-09-09] MEDS: APIXABAN 5 MG TABLET PO ×2 (08:58→21:32)
[2022-09-09] MEDS: INSULIN ASPART (*BKC) 100 UNITS/ML 10 UNITS SUB-Q ×2 (08:59→13:03)
[2022-09-09] MEDS: INSULIN GLARGINE (*BKC) 100 UNITS/ML 35 UNITS SUB-Q (09:00)
[2022-09-09] MEDS: MICAFUNGIN SODIUM 100 MG in SODIUM CHLORIDE 0.9% IV 100 ML IVPB (09:02)
[2022-09-09 11:47] LABS: Glucose Point of Care 253 mg/dl (65-105)
--- NOTE | 2022-09-09 16:51 | PM.IMPN ---
Progress Note: A&P Assessment and Plan (1) Sepsis: Qualifiers: Sepsis type: sepsis due to unspecified organism Sepsis acute organ dysfunction status: with acute organ dysfunction Severe sepsis acute organ dysfunction type: encephalopathy Severe sepsis shock status: without septic shock Qualified Code(s): A41.9 - Sepsis, unspecified organism; R65.20 - Severe sepsis without septic shock; G93.40 - Encephalopathy, unspecified Code(s): A41.9 - Sepsis, unspecified organism Status: Acute Assessment and Plan: Sepsis likely from UTI with associated obstructive uropathy, with mild bilateral hydronephrosis. Continue Mace, cultures pending Continue vanc and cefepime 09/01: Both blood and urine cultures came back positive for Nora glabrata, micafungin initiated 09/02: Continue micafungin, check repeat blood cultures tomorrow Repeat blood culture no growth to date Vancomycin and cefepime stopped Micafungin until 09/17/2022. Discussed with ID pharmacist. (2) Atrial fibrillation with RVR: Code(s): I48.91 - Unspecified atrial fibrillation Status: Acute Assessment and Plan: Continue Cardizem drip, appreciate cardiology consultation EF greater than 70%, indeterminate diastolic function, no valvular abnormalities or pulmonary hypertension noted Uncontrolled maxed out on Cardizem drip, oral metoprolol added Remains on diltiazem drip per cardiology transition to oral Cardizem Continue to monitor heart rate. (3) Acute kidney injury: Code(s): N17.9 - Acute kidney failure, unspecified Status: Acute Assessment and Plan: 3.7 on admission. Mace placed Currently resolved Renal ultrasound with mild bilateral hydronephrosis (4) Acute UTI: Code(s): N39.0 - Urinary tract infection, site not specified Status: Acute Assessment and Plan: Continue antibiotics for now, started micafungin due to Nora found in urine as well as blood (5) Obstructive uropathy: Code(s): N13.9 - Obstructive and reflux uropathy, unspecified Status: Acute Assessment and Plan: Continue Mace (6) Diabetes mellitus with hyperglycemia, with long-term current use of insulin: Code(s): E11.65 - Type 2 diabetes mellitus with hyperglycemia; Z79.4 - [facility] (current) use of insulin Status: Acute Assessment and Plan: Continue Accu-Chek, sliding scale insulin He takes Levemir 50 units Novolin R 20 units with meals along with metformin at home restart lantus/lispro half of home dose Increase Lantus and lispro (7) Metabolic encephalopathy: Code(s): G93.41 - Metabolic encephalopathy Status: Acute Assessment and Plan: likely multifactorial, plan as above (8) Fungemia: Code(s): B49 - Unspecified mycosis Status: Acute Assessment and Plan: Nora glabrata in blood culture x2 Repeat blood culture no growth to date Echocardiogram with EF more than 70% will discuss with id pharmacist Plan Sicker decubitus ulcer stage II with newly found. Wound Care consulted specialty bed History of bipolar disorder Dementia Acute on Chronic atrial fibrillation with RVR on presentation on Eliquis and metoprolol. Started on diltiazem drip on admission Cardiomyopathy Morbid obesity group home resident baseline alert oriented to person only DVT prophylaxis with Eliquis GI prophylaxis not indicated Code status do not resuscitate Subjective Date/time seen: 09/09/22 16:51 Interval history: No overnight events. No fever chills. No abdominal pain nausea vomiting. No new complaints Review of Systems Review of Systems: All systems reviewed & are unremarkable except as noted in HPI and below Exam Narrative: General: Appears to be at baseline mentation, alert oriented to self and place, not to time; morbid obesity HEENT: Atraumatic, normocephalic, mucous membranes moist CV: Irregularly irregular, S1, S2
[2022-09-09 17:01] LABS: Glucose Point of Care 207 mg/dl (65-105)
[2022-09-09] MEDS: INSULIN ASPART (*BKC) 100 UNITS/ML 18 UNITS SUB-Q (17:51)
[2022-09-10] VITALS (9 sets, daily range): BP systolic 99–154; BP diastolic 55–89; PULSE 70–116; RESP 16–20; TEMP 35.8–36.4; O2SAT 98–99
[2022-09-10] MEDS: METOPROLOL TARTRATE 25 MG TABLET 75 MG PO ×3 (06:09→21:10)
[2022-09-10] MEDS: dilTIAZem HCL 60 MG TABLET PO ×4 (06:09→23:53)
[2022-09-10 08:44] LABS: Glucose Point of Care 249 mg/dl (65-105)
[2022-09-10] MEDS: INSULIN ASPART (*BKC) 100 UNITS/ML SUB-Q ×2 (09:27→12:10)
[2022-09-10] MEDS: INSULIN ASPART (*BKC) 100 UNITS/ML 18 UNITS SUB-Q ×3 (09:28→17:52)
[2022-09-10] MEDS: APIXABAN 5 MG TABLET PO ×2 (09:28→21:10)
[2022-09-10] MEDS: INSULIN GLARGINE (*BKC) 100 UNITS/ML 45 UNITS SUB-Q (09:28)
[2022-09-10] MEDS: QUEtiapine FUMARATE 12.5 MG TABLET PO ×2 (09:28→21:10)
[2022-09-10] MEDS: PANTOPRAZOLE SODIUM IV 40 MG VIAL IV PUSH (09:28)
[2022-09-10] MEDS: POTASSIUM CHLORIDE 20 MEQ PACKET (FOR LIQUID) 40 MEQ PO ×2 (09:29→17:52)
[2022-09-10] MEDS: MICAFUNGIN SODIUM 100 MG in SODIUM CHLORIDE 0.9% IV 100 ML IVPB (09:31)
[2022-09-10 11:48] LABS: Glucose Point of Care 299 mg/dl (65-105)
[2022-09-10 14:22] LABS: Glucose Point of Care 234 mg/dl (65-105)
[2022-09-10 16:49] LABS: Glucose Point of Care 173 mg/dl (65-105)
--- NOTE | 2022-09-10 17:16 | PM.IMPN ---
Progress Note: A&P Assessment and Plan (1) Sepsis: Qualifiers: Sepsis type: sepsis due to unspecified organism Sepsis acute organ dysfunction status: with acute organ dysfunction Severe sepsis acute organ dysfunction type: encephalopathy Severe sepsis shock status: without septic shock Qualified Code(s): A41.9 - Sepsis, unspecified organism; R65.20 - Severe sepsis without septic shock; G93.40 - Encephalopathy, unspecified Code(s): A41.9 - Sepsis, unspecified organism Status: Acute Assessment and Plan: Sepsis likely from UTI with associated obstructive uropathy, with mild bilateral hydronephrosis. Continue Mace, cultures pending Continue vanc and cefepime 09/01: Both blood and urine cultures came back positive for Nora glabrata, micafungin initiated 09/02: Continue micafungin, check repeat blood cultures tomorrow Repeat blood culture no growth to date Vancomycin and cefepime stopped Micafungin until 09/17/2022. Discussed with ID pharmacist. 09/10/2021 interval history: patient is a poor respiratory denies any complaint chest pain shortness of breath or palpitation, patient with atrial fibrillation now the rate is controlled the metoprolol 75 mg q.8, patient also is found to have blood culture positive Nora albicans being treated with a micafunigan, ID pharmacist recommended continued antibiotic and 09/17/2021, will discharge the patient in the morning and patient will have remaining antibiotics in the [facility], (2) Atrial fibrillation with RVR: Code(s): I48.91 - Unspecified atrial fibrillation Status: Acute Assessment and Plan: Continue Cardizem drip, appreciate cardiology consultation EF greater than 70%, indeterminate diastolic function, no valvular abnormalities or pulmonary hypertension noted Uncontrolled maxed out on Cardizem drip, oral metoprolol added Remains on diltiazem drip per cardiology transition to oral Cardizem Continue to monitor heart rate. (3) Acute kidney injury: Code(s): N17.9 - Acute kidney failure, unspecified Status: Acute Assessment and Plan: 3.7 on admission. Mace placed Currently resolved Renal ultrasound with mild bilateral hydronephrosis (4) Acute UTI: Code(s): N39.0 - Urinary tract infection, site not specified Status: Acute Assessment and Plan: Continue antibiotics for now, started micafungin due to Nora found in urine as well as blood (5) Obstructive uropathy: Code(s): N13.9 - Obstructive and reflux uropathy, unspecified Status: Acute Assessment and Plan: Continue Mace (6) Diabetes mellitus with hyperglycemia, with long-term current use of insulin: Code(s): E11.65 - Type 2 diabetes mellitus with hyperglycemia; Z79.4 - residential (current) use of insulin Status: Acute Assessment and Plan: Continue Accu-Chek, sliding scale insulin He takes Levemir 50 units Novolin R 20 units with meals along with metformin at home restart lantus/lispro half of home dose Increase Lantus and lispro (7) Metabolic encephalopathy: Code(s): G93.41 - Metabolic encephalopathy Status: Acute Assessment and Plan: likely multifactorial, plan as above (8) Fungemia: Code(s): B49 - Unspecified mycosis Status: Acute Assessment and Plan: Nora glabrata in blood culture x2 Repeat blood culture no growth to date Echocardiogram with EF more than 70% will discuss with id pharmacist Plan Sicker decubitus ulcer stage II with newly found. Wound Care consulted specialty bed History of bipolar disorder Dementia Acute on Chronic atrial fibrillation with RVR on presentation on Eliquis and metoprolol. Started on diltiazem drip on admission Cardiomyopathy Morbid obesity intermediate resident baseline alert oriented to person only DVT prophylaxis with Eliquis GI prophylaxis not indicated Code status do not resuscitate Subjective
[2022-09-10 22:43] LABS: Glucose Point of Care 169 mg/dl (65-105)
[2022-09-11] VITALS: BP 101/63; PULSE 89; PULSE 98; RESP 20; TEMP 36.2; O2SAT 100
[2022-09-11 04:00] VITALS: BP 124/65; PULSE 101; PULSE 96; RESP 18; TEMP 36.8; O2SAT 98
[2022-09-11 06:09] VITALS: PULSE 109
[2022-09-11] MEDS: dilTIAZem HCL 60 MG TABLET PO ×2 (06:09→13:00)
[2022-09-11] MEDS: METOPROLOL TARTRATE 25 MG TABLET 75 MG PO ×2 (06:09→16:35)
[2022-09-11 07:16] LABS: Estimated CRCL calculation 131 ml/min; Estimated Glomerular Filt Rate > 60
[2022-09-11 08:00] VITALS: BP 116/69; PULSE 91; RESP 20; TEMP 36.6; O2SAT 98
[2022-09-11 08:50] LABS: Glucose Point of Care 212 mg/dl (65-105)
[2022-09-11] MEDS: INSULIN GLARGINE (*BKC) 100 UNITS/ML 45 UNITS SUB-Q (09:42)
[2022-09-11] MEDS: INSULIN ASPART (*BKC) 100 UNITS/ML 18 UNITS SUB-Q ×2 (09:42→13:01)
[2022-09-11] MEDS: INSULIN ASPART (*BKC) 100 UNITS/ML SUB-Q ×2 (09:42→13:00)
[2022-09-11] MEDS: MICAFUNGIN SODIUM 100 MG in SODIUM CHLORIDE 0.9% IV 100 ML IVPB (09:43)
[2022-09-11] MEDS: POTASSIUM CHLORIDE 20 MEQ PACKET (FOR LIQUID) 40 MEQ PO (09:44)
[2022-09-11] MEDS: APIXABAN 5 MG TABLET PO (09:44)
[2022-09-11] MEDS: QUEtiapine FUMARATE 12.5 MG TABLET PO (09:45)
[2022-09-11] MEDS: PANTOPRAZOLE SODIUM IV 40 MG VIAL IV PUSH (09:45)
--- NOTE | 2022-09-11 10:54 | PM.DS ---
DS: Admitting Diagnosis Discharge Date 09/11/2022 Admitting Diagnosis Lethargic DS: Discharge Diagnosis Discharge Diagnosis (1) Sepsis: Qualifiers: Sepsis type: sepsis due to unspecified organism Sepsis acute organ dysfunction status: with acute organ dysfunction Severe sepsis acute organ dysfunction type: encephalopathy Severe sepsis shock status: without septic shock Qualified Code(s): A41.9 - Sepsis, unspecified organism; R65.20 - Severe sepsis without septic shock; G93.40 - Encephalopathy, unspecified Code(s): A41.9 - Sepsis, unspecified organism Status: Acute Assessment and Plan: Sepsis likely from UTI with associated obstructive uropathy, with mild bilateral hydronephrosis. Continue Amce, cultures pending Continue vanc and cefepime 09/01: Both blood and urine cultures came back positive for Nora glabrata, micafungin initiated 09/02: Continue micafungin, check repeat blood cultures tomorrow Repeat blood culture no growth to date Vancomycin and cefepime stopped Micafungin until 09/17/2022. Discussed with ID pharmacist. 09/10/2021 interval history: patient is a poor respiratory denies any complaint chest pain shortness of breath or palpitation, patient with atrial fibrillation now the rate is controlled the metoprolol 75 mg q.8, patient also is found to have blood culture positive Nora albicans being treated with a micafunigan, ID pharmacist recommended continued antibiotic and 09/17/2021, will discharge the patient in the morning and patient will have remaining antibiotics in the correction, (2) Atrial fibrillation with RVR: Code(s): I48.91 - Unspecified atrial fibrillation Status: Acute Assessment and Plan: Continue Cardizem drip, appreciate cardiology consultation EF greater than 70%, indeterminate diastolic function, no valvular abnormalities or pulmonary hypertension noted Uncontrolled maxed out on Cardizem drip, oral metoprolol added Remains on diltiazem drip per cardiology transition to oral Cardizem Continue to monitor heart rate. (3) Acute kidney injury: Code(s): N17.9 - Acute kidney failure, unspecified Status: Acute Assessment and Plan: 3.7 on admission. 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 insulin Status: Acute Assessment and Plan: Continue Accu-Chek, sliding scale insulin He takes Levemir 50 units Novolin R 20 units with meals along with metformin at home restart lantus/lispro half of home dose Increase Lantus and lispro (7) Metabolic encephalopathy: Code(s): G93.41 - Metabolic encephalopathy Status: Acute Assessment and Plan: likely multifactorial, plan as above (8) Fungemia: Code(s): B49 - Unspecified mycosis Status: Acute Assessment and Plan: Nora glabrata in blood culture x2 Repeat blood culture no growth to date Echocardiogram with EF more than 70% will discuss with id pharmacist Plan Sicker decubitus ulcer stage II with newly found. Wound Care consulted specialty bed History of bipolar disorder Dementia Acute on Chronic atrial fibrillation with RVR on presentation on Eliquis and metoprolol. Started on diltiazem drip on admission Cardiomyopathy Morbid obesity [facility] resident baseline alert oriented to person only DVT prophyl
[2022-09-11] MEDS: LIDOCAINE HCL 1% LOCAL INJ 2 ML AMPUL 5 ML INFILTRATE (11:40)
[2022-09-11 12:00] VITALS: BP 114/61; PULSE 90; RESP 18; TEMP 36.6; O2SAT 98
[2022-09-11 12:33] LABS: Glucose Point of Care 267 mg/dl (65-105)
== END 2022-09-11 17:02 | DRG 871 ==
LOC: ANHED 03:34 → ANHIMU 05:41 → ANH3MEDSUR 09-07 16:42
PROVIDERS: Internal Medicine; Student in an Organized Health Care Education/Training Program; Admitting Provider Internal Medicine; Emergency Provider Emergency Medicine; PCP Family Medicine; Visit Provider Family Medicine
DX: B37.7 Candidal sepsis (principal); G93.41 Metabolic encephalopathy; I43 Cardiomyopathy in diseases classified elsewhere; N17.9 Acute kidney failure, unspecified; I48.19 Other persistent atrial fibrillation; N13.30 Unspecified hydronephrosis; B37.49 Other urogenital candidiasis; R65.20 Severe sepsis without septic shock; E11.65 Type 2 diabetes mellitus with hyperglycemia; E55.9 Vitamin D deficiency, unspecified; E87.6 Hypokalemia; E66.01 Morbid (severe) obesity due to excess calories; E11.42 Type 2 diabetes mellitus with diabetic polyneuropathy; F31.9 Bipolar disorder, unspecified; F03.90 Unspecified dementia, unspecified severity, without behavioral disturbance, psychotic disturbance, mood disturbance, and anxiety; G47.33 Obstructive sleep apnea (adult) (pediatric); I11.9 Hypertensive heart disease without heart failure; L89.322 Pressure ulcer of left buttock, stage 2; L89.312 Pressure ulcer of right buttock, stage 2; Z66 Do not resuscitate; Z20.822 Contact with and (suspected) exposure to COVID-19; Z68.34 Body mass index [BMI] 34.0-34.9, adult; Z79.4 Long term (current) use of insulin; Z79.84 Long term (current) use of oral hypoglycemic drugs; Z79.01 Long term (current) use of anticoagulants
CPT/HCPCS: 36415; 36569; 36600; 70450; 71045; 76775; 80048; 80053; 80069; 80202; 81001; 82550; 82565; 82805; 82948; 83036; 83540; 83550; 83605; 83735; 84100; 84132; 84484; 85025; 85380; 87040; 87086; 87088; 87106; 87637; 93005; 96361; 96365; 96366; 96367; 96375; 99285; A9270; C1751; C8929; C9113; J0131; J0692; J0696; J1815; J1940; J2248; J3370; J3475; J3480; J7030; J7040; Q9957

== ENCOUNTER 2022-09-17 20:16 | Emergency (ER) | payer MEDICARE, MEDICAID, SELFPAY ==
[2022-09-17] VITALS (8 sets, daily range): BP systolic 116–149; BP diastolic 73–92; PULSE 85–153; RESP 18–22; TEMP 37; O2SAT 97–100
--- NOTE | ~2022-09-17 | XR_ITS ---
EXAMINATION: XR chest 2V Exam Date/Time: 09/17/2022 21:30 BRIDGE IRONWORKER HISTORY: FALL, RECOMMENDED BY RADIOLOGIST Comparison: Same date at 8:55 PM. 09/04/2022, 09/01/2022, 08/30/2022. RESULT: Lines, tubes, and devices: None. Lungs and pleura: Clear. Cardiomediastinal silhouette: Sharp outline of the aortic knob. Vascular shadows in the upper medias tinum. No concerning mediastinal widening. Mediastinal structures are unchanged from the older compar to studies. Other: No acute osseous or upper abdominal finding. IMPRESSION: No acute cardiopulmonary process. Abnormal mediastinal findings in the prior study were related to po sitioning and technique. Reviewed, dictated and finalized at location K. GE IRONWORKER IMPRESSION: No acute cardiopulmonary process. Abnormal mediastinal findings in the prior st udy were related to positioning and technique.
--- NOTE | ~2022-09-17 | CT_ITS ---
EXAMINATION: CT brain wo con DATE: 09/17/2022 20:51 INDICATION: fall . TECHNIQUE: Computed tomography (CT) of the head was performed without intravenous contrast. The mA wa s adjusted according to patient size. Iterative reconstruction technique was employed. The dose-lengt h product was 605.33 mGy-cm. COMPARISON: 08/30/2022. FINDINGS: No acute intracranial hemorrhage or extra-axial fluid collection. No hydrocephalus, mass, or herniation. No acute ischemic infarct. Unremarkable dural venous sinus attenuation. No acute osseous abnormality. The aerated spaces are clear. Moderate atrophy and chronic white matter change. Atherosclerotic intracranial calcification. IMPRESSION: No acute intracranial process. Reviewed, dictated and finalized at location K. L FILER
--- NOTE | ~2022-09-17 | XR_ITS ---
EXAMINATION: XR chest 1V Exam Date/Time: 09/17/2022 20:40 HEMMER AUTOMATIC HISTORY: fall Comparison: 09/04/2022, 09/01/2022, 08/30/2022. RESULT: Lines, tubes, and devices: None. Lungs and pleura: Low lung volumes. Crowding. Senescent changes. Calcified granulomas. Cardiomediastinal silhouette: Mediastinal widening, with obscuration of the aortic knob. Other: No acute osseous or upper abdominal finding. IMPRESSION: Apparent mediastinal widening and obscuration of the aortic knob, likely artifactual, recommend repea t chest radiograph in the upright position with a lateral view, if possible. Results discussed telephonically with Dr. Quijano by Dr. Jimenez at 9:01 PM on 09/17/2022. Reviewed, dictated and finalized at location K. ER AUTOMATIC IMPRESSION: Apparent mediastinal widening and obscuration of the aortic knob, likely artifa ctual, recommend repeat chest radiograph in the upright position with a lateral view, if possible. Results discussed telephonically with Dr. Quijano by Dr. Jimenez at 9:01 PM on 07/2023.
--- NOTE | ~2022-09-17 | XR_ITS ---
EXAM: XR pelvis 1-2V DATE: 09/17/2022 20:57 HISTORY: fall . COMPARISON: None available. FINDINGS: Normal mineralization. The lateral portion of the left greater trochanter is excluded from the [id number]. No fracture or dislocation. No lytic or blastic lesion. Mild degenerative change in the lumbar spine and bilateral hips. No erosion or periosteal change. Soft tissues within normal l imits. IMPRESSION: Lateral portion of the left greater trochanter is excluded from the [id number]. Within that constraint, no acute osseous finding in the pelvis. Reviewed, dictated and finalized at location K. RVISOR ORE DRESSING IMPRESSION: Lateral portion of the left greater trochanter is excluded from the [id number]. Within that constraint, no acute osseous finding in the pelvis.
--- NOTE | ~2022-09-17 | CT_ITS ---
EXAMINATION: CT cervical spine wo con DATE: 09/17/2022 20:51 INDICATION: fall TECHNIQUE: Computed tomography (CT) of the cervical spine was performed without intravenous contrast. Automated exposure control and iterative reconstruction technique were employed. The dose-length pro duct was 638.20 mGy-cm. COMPARISON: None. FINDINGS: Vertebral Body Alignment: Intact. . Craniocervical and atlantoaxial alignment: Moderate degenerative change. Alignment intact. Osseous structures/fracture: No evidence of a lytic or blastic process in the visualized spine. No e vidence of acute fracture. . Cervical soft tissues: The paraspinal soft tissues planes are maintained. Aortic arch ectasia. Mild a rch calcification. Mild bilateral carotid bifurcation calcification. Degenerative changes: Multilevel degenerative disc disease and facet arthropathy. Multilevel bilatera l severe neural foraminal narrowing. Moderate central canal narrowing at C4-5 and C5-6. IMPRESSION: No acute fracture or traumatic malalignment in the cervical spine Reviewed, dictated and finalized at location K. CY AND PLANNING MANAGER
--- NOTE | 2022-09-17 20:19 | ED.FALL ---
HPI - Fall General Chief Complaint: Fall Stated Complaint: FALL; ON ELIQUIS Source: EMS and RN notes reviewed History of Present Illness HPI Narrative: [facility] EMS for fall. Patient currently resides in an [facility] history of dementia and is a poor historian the patient fell out of bed today with an unwitnessed fall per the staff at the [facility] who were called to head to give history the patient is on Eliquis and was transferred to the emergency department for further evaluation patient currently is laying in bed he denies any complaints at this time denies any headache chest pain shortness of breath abdominal pain nausea vomiting or any other symptoms. Related Data Home Medications Medication Instructions Recorded Confirmed acetaminophen 325 mg tablet 650 mg PO Q6H PRN Pain 08/30/22 08/30/22 apixaban 5 mg tablet (Eliquis) 5 mg PO BID 08/30/22 08/30/22 ergocalciferol (vitamin D2) 25,000 50,000 unit PO WEEKLY 08/30/22 08/30/22 unit capsule hydrochlorothiazide 12.5 mg capsule 12.5 mg PO DAILY 08/30/22 08/30/22 insulin detemir U-100 100 unit/mL 50 unit subcut DAILY 08/30/22 08/30/22 subcutaneous solution (Levemir U-100 Insulin) insulin regular human 100 unit/mL 20 unit subcut TIDWMEAL 08/30/22 08/30/22 injection solution (Novolin R Regular U-100 Insulin) memantine 10 mg tablet 10 mg PO BID 08/30/22 08/30/22 metformin 1,000 mg tablet 1,000 mg PO BID 08/30/22 08/30/22 multivit with minerals-iron 18 1 tablet PO DAILY 08/30/22 08/30/22 mg-folic ac 400 mcg-vit K 25 mcg tablet (Adults Multivitamin) pravastatin 40 mg tablet 40 mg PO DAILY 08/30/22 08/30/22 thiamine HCl (vitamin B1) 100 mg 100 mg PO DAILY 08/30/22 08/30/22 tablet (Vitamin B-1) Allergies Allergy/AdvReac Type Severity Reaction Status Date / Time aspirin Allergy Other Verified 08/30/22 04:41 Review of Systems Review of Systems: Gen.: Denies fevers or chills ENT: Denies facial pain Respiratory: Denies shortness of breath CV: Denies chest pain GI: Denies abdominal pain nausea, emesis or diarrhea Musculoskeletal: Denies back pain or muscle pain Neuro: Denies numbness, tingling, weakness or focal weakness Skin: Denies rash Except as documented, all other systems reviewed and negative [facility] Past Medical History Medical History Bipolar disorder Cardiomyopathy Chronic atrial fibrillation Dementia Diabetes mellitus with hyperglycemia, with long-term current use of insulin Diabetic peripheral neuropathy Essential hypertension Morbid obesity Obstructive sleep apnea Likely Vitamin D deficiency Surgical History Surgical History Surgical history unknown Family History Family History Other Unknown family medical history Social History Social History Social History: 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 He has never been and does not have any children. He has been in a retirement since December 2015. His mother is listed as his emergency contact. Code status: DNR/DNI with comfort based treatment Smoking status: Never smoker Spiritual care concerns: No Exam Narrative: APPEARANCE: No acute distress, nontoxic, resting in bed EYES: PERRL HEENT: Normocephalic, atraumatic, no facial tenderness Neck: Supple no midline tenderness palpation RESPIRATORY: No respiratory distress Clear to auscultation bilaterally with no rhonchi wheezing or rales. CARDIOVASCULAR: Regular rate and rhythm without murmurs rubs or gallops. ABDOMINAL: Soft, nontender, nondistended, no rebound or guarding MUSCULOSKELETAl: Moves all extremities. No clubbing, cyanosis or edema. No tenderness of the bilateral upper or lower extremities, NEURO: Awake and alert x 2. Following commands, speech normal,
[2022-09-17] MEDS: METOPROLOL TARTRATE TAB 25 MG, METOPROLOL TARTRATE TAB 50 MG 75 MG PO (21:08)
[2022-09-17] MEDS: TETANUS,DIPHTHERIA,AC PERTUSSIS ADULT (0.5 ML) BOOSTRIX IM (22:02)
== END 2022-09-18 00:45 ==
PROVIDERS: Emergency Provider Emergency Medicine; PCP Family Medicine
DX: S00.93XA Contusion of unspecified part of head, initial encounter (principal); I48.20 Chronic atrial fibrillation, unspecified; Z23 Encounter for immunization; F03.90 Unspecified dementia, unspecified severity, without behavioral disturbance, psychotic disturbance, mood disturbance, and anxiety; E11.42 Type 2 diabetes mellitus with diabetic polyneuropathy; I10 Essential (primary) hypertension; I42.9 Cardiomyopathy, unspecified; G47.33 Obstructive sleep apnea (adult) (pediatric); E55.9 Vitamin D deficiency, unspecified; E66.01 Morbid (severe) obesity due to excess calories; Z68.33 Body mass index [BMI] 33.0-33.9, adult; Z66 Do not resuscitate; Z79.01 Long term (current) use of anticoagulants; Z79.84 Long term (current) use of oral hypoglycemic drugs; Z79.4 Long term (current) use of insulin; W06.XXXA Fall from bed, initial encounter
CPT/HCPCS: 70450; 71045; 71046; 72125; 72170; 90471; 90715; 99284; A9270

== ENCOUNTER 2022-09-23 14:42 | Inpatient (IN) | payer MEDICARE, BC, SELFPAY ==
[2022-09-23] VITALS (22 sets, daily range): BP systolic 97–154; BP diastolic 48–100; PULSE 104–173; RESP 18–36; TEMP 36.6–38.6; O2SAT 95–100; BMI 35.4
--- NOTE | ~2022-09-23 | XR_ITS ---
EXAMINATION: XR chest 1V DATE: 09/23/2022 15:35 INDICATION: Tachycardia. Altered mental status. TECHNIQUE: A single frontal view of the chest was obtained. COMPARISON: Chest 2 views 09/17/2022 FINDINGS: The lung volumes are small. Again seen is mild elevation of left hemidiaphragm. Calcified r ight lung nodules and calcified right hilar lymph nodes are consistent with old granulomatous disease . There is mild atelectasis in left lung. No pleural effusion or pneumothorax. Cardiomegaly is noted. IMPRESSION: 1. Small lung volumes with mild atelectasis in left lung. 2. Cardiomegaly. Reviewed, dictated and finalized at location A. HER
--- NOTE | ~2022-09-23 | CT_ITS ---
EXAMINATION: CT abdomen pelvis w con DATE: 09/23/2022 17:21 INDICATION: Hematuria. Sepsis. TECHNIQUE: Computed tomography (CT) of the abdomen and pelvis was performed with 100 mL Omnipaque 350 intravenous contrast. Automated exposure control and iterative reconstruction technique were employe d. The dose-length product was 1703.77 mGy-cm. COMPARISON: None. FINDINGS: The visualized portions of the lung bases demonstrate motion artifact and mild atelectasis. Calcified right lung nodules and calcified right hilar and mediastinal lymph nodes are consistent wi th old granulomatous disease. There is mild elevation of left hemidiaphragm. No pleural effusion. The re is left atrial enlargement of the heart. There are coronary artery calcifications. No pericardial effusion. There is a small sliding hiatal hernia. Calcifications in the liver and spleen are consiste nt with old granulomatous disease. There are gallstones in the gallbladder, which is normal in size. The pancreas and adrenal glands are normal. There are cysts in the kidneys measuring up to 4.7 m on t he left. There is an umbilical hernia containing fat. The bladder is decompressed by a Mace catheter . There is fat stranding around the bladder. There is diverticulosis of the colon without evidence of diverticulitis. The appendix is normal. There are no pathologically enlarged lymph nodes. There is n o free intraperitoneal fluid. There is subcutaneous gas and fat stranding in the buttocks and lower b ack near the midline. There is moderate lumbar spondylosis. IMPRESSION: 1. Fat stranding around the bladder, consistent with edema versus inflammation. 2. Subcutaneous gas and fat stranding in the buttocks and lower back in the midline, consistent with inflammation. Correlate with physical exam for skin tear. Correlate clinically for necrotizing fascii tis. Reviewed, dictated and finalized at location A. QUANTITATIVE GENETICIST IMPRESSION: 1. Fat stranding around the bladder, consistent with edema versus inflammation. 2. Subcutaneous gas and fat stranding in the buttocks and lower back in the mid line, consistent with inflammation. Correlate with physical exam for skin tear. Correlate clinically for necrotizing fasciitis.
--- NOTE | ~2022-09-23 | XR_ITS ---
EXAMINATION: XR chest PICC line DATE: 09/23/2022 16:50 INDICATION: Venous catheter placement. TECHNIQUE: A single frontal view of the chest was obtained. COMPARISON: Chest single view at 3:21 PM FINDINGS: The lung volumes are small. A calcified right lung nodule and calcified right hilar and med iastinal lymph nodes are consistent with old granulomatous disease. Left lateral costophrenic angle i s excluded. No pleural effusion or pneumothorax. Cardiomegaly is noted. There is a right upper extrem ity catheter with tip in the right axillary vein. IMPRESSION: 1. Catheter tip in the right axillary vein. 2. Cardiomegaly. Reviewed, dictated and finalized at location A. T DECORATOR
--- NOTE | 2022-09-23 15:01 | ECG_ITS ---
Measurements Intervals [place] Rate: 144 P: [place]: 0 QRS: -11 QRSD: 87 T: 121 QT: 287 QTc: 446 Interpretive Statements ATRIAL FIBRILLATION WITH RAPID VENTRICULAR RESPONSE NONSPECIFIC ST & T-WAVE ABNORMALITY- ANTEROLAT/HIGH LAT LEADS BASELINE ARTIFACT- I, III, AVR, AVL, AVF ABNORMAL ECG COMPARED TO ECG 09/02/2022 07:36:36 HEART RATE HAS DECREASED Electronically Signed On 09-23-2022 16:05:56 CLOAK ROOM ATTENDANT by Olu Cook D.O.
--- NOTE | 2022-09-23 15:15 | PC.NURSE ---
Pt arrived in urine soaked pad, sheets, and blankets. Pt gown was stained with urine.
--- NOTE | 2022-09-23 15:20 | ED.GENADULT ---
HPI - General Adult General Chief complaint: Weakness Stated complaint: blood in urine, hx of urosepsis Time Seen by Provider: 09/23/22 14:52 History of Present Illness HPI narrative: Patient is a 67-year-old male with a history of dementia presenting with hematuria. Patient was recently admitted here and found to have urosepsis. He was discharged back to his nursing facility on IV antibiotics with a PICC line. Today he was noted to have blood in his Mace bag so they sent him in for evaluation. Patient is unable to provide much history due to underlying dementia. Currently denies pain. Related Data Home Medications Medication Instructions Recorded Confirmed acetaminophen 325 mg tablet 650 mg PO Q6H PRN Pain 08/30/22 09/24/22 (Tylenol) apixaban 5 mg tablet (Eliquis) 5 mg PO BID 08/30/22 09/24/22 ergocalciferol (vitamin D2) 25,000 50,000 unit PO WEEKLY 08/30/22 09/24/22 unit capsule insulin detemir U-100 100 unit/mL 50 unit subcut DAILY 08/30/22 09/24/22 subcutaneous solution (Levemir U-100 Insulin) insulin regular human 100 unit/mL 20 unit subcut TIDWMEAL 08/30/22 09/24/22 injection solution (Novolin R Regular U-100 Insulin) memantine 10 mg tablet 10 mg PO BID 08/30/22 09/24/22 metformin 1,000 mg tablet 1,000 mg PO BID 08/30/22 09/24/22 multivit with minerals-iron 18 1 tablet PO DAILY 08/30/22 09/24/22 mg-folic ac 400 mcg-vit K 25 mcg tablet (Adults Multivitamin) pravastatin 40 mg tablet 40 mg PO DAILY 08/30/22 09/24/22 thiamine HCl (vitamin B1) 100 mg 100 mg PO DAILY 08/30/22 09/24/22 tablet (Vitamin B-1) diltiazem HCl 60 mg tablet 60 mg PO Q6HR 09/24/22 09/24/22 (Cardizem) Allergies Allergy/AdvReac Type Severity Reaction Status Date / Time aspirin Allergy Other Verified 08/30/22 04:41 Review of Systems Review of Systems: ROS unobtainable: Yes unobtainable due to mental status PMFSH Past Medical History Medical History Bipolar disorder Cardiomyopathy Echo August 2022 showed normal LV chamber size, hyperdynamic LV function with an EF of greater than 70%, and indeterminate diastolic function. 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 Mother is listed as emergency contact however she has passed. Family members have repeatedly declined to discuss the patient and do not wish to be contacted. He apparently has been a custodial since December 2015. Code status: DNR/DNI with comfort based treatment Smoking status: Unknown if ever smoked Alcohol intake: unknown Substance use: unknown Spiritual care concerns: No Exam Narrative: GENERAL: Chronically ill-appearing elderly male HEAD: Normocephalic, atraumatic. EYES: PERRLA and EOMI. ENT: Nares clear, no rhinorrhea or epistaxis. Mucous membranes moist. NECK: Supple. CHEST: Clear to auscultation. No respiratory distress. HEART: Tachycardic, irregular rhythm no murmur heard. Normal peripheral pulses. ABDOMEN: Soft, nontender, nondistended, normal active bowel sounds. EXTREMITIES: Normal range of motion. SKIN: Warm, dry, no rash. Large necrotic sacral wound NEURO: No focal deficits. Alert and oriented x3. Course Vital Signs Vital signs: Vital Signs Temperature 98.0 F 09/23/22 14:45 Pulse Rate 147 H 09/23/22 14:45 Respiratory Rate 22 H 09/23/22 14:45 Blood Pressure 123/100 H 09/23/22 14:45 Pulse Oximetry 100 09/23/22 14:45 Oxygen Delivery Room Air 09/23/22 14:45 Temperature 98.3 F 09/26/22 07:25 Pulse Rate 81
[2022-09-23 16:15] LABS: Appearance Urine Cloudy (Clear); Bilirubin Urine Negative (Negative); Blood Urine 2+ (Negative); Color Urine Yellow (Yellow); Glucose Urine UA Negative (Negative); Ketones Urine Trace mg/dL (Negative); Leukocyte Esterase Ur 1+ LEU/UL (Negative); Nitrate Urine Positive (Negative); Protein Urine 3+ mg/dL (Negative); Specific Grav Ur 1.015 (1.001-1.035); pH Urine >=9.0 (5.0-9.0)
[2022-09-23 16:22] LABS: Bacteria Urine 2+ /hpf; Mucus Urine Moderate /lpf; RBC Urine 21-50 /hpf (0-2); WBC Urine >75 /hpf
[2022-09-23 16:24] LABS: Add Urine Microscopic? YES
--- NOTE | 2022-09-23 16:25 | PCCCNOTE ---
Phone call from Lauren at [facility] asking about how patient is doing. They are looking at him for hospice but he hasn't been admitted yet to hospice, but there is no POA. ID had called them out to do a mini mental to see if he could sign himself but he came here. She is leaving for the day but will be in to see him if MD feels that he is appropriate for [address] Wilson, she is planning to admit but if we could get additional information from ID it would be helpful. Called to Yasmine regalado [place] [phone], no answer, left vm message.
[2022-09-23 16:29] LABS: Basophils Percent Auto 0.3 % (0.2-1.2); Eosinophils Percent Auto 0.3 % (0-4.4); Hematocrit 37.4 % (42.0-52.0); Hemoglobin 11.5 g/dL (14.0-18.0); Immature Granulocyte Absolute 0.12 K/mm3 (0.00-0.031); Immature Granulocyte Percent A 0.8 % (0-0.5); Lymphocytes Absolute Auto 1.84 K/mm3 (0.9-3.2); Lymphocytes Percent Auto 12.8 % (18.3-44.2); Mean Corpuscular HGB Conc 30.7 g/dl (32-36); Mean Corpuscular Hemoglobin 26.7 pg (26-34); Mean Corpuscular Volume 86.8 fl (80-100); Mean Platelet Volume 9.3 fl (7.4-10.4); Monocytes Absolute Auto 1.1 K/mm3 (0.1-0.6); Monocytes Percent Auto 7.3 % (2.6-8.5); Neutrophils Absolute Auto 11.3 K/mm3 (1.3-6.7); Neutrophils Percent Auto 78.5 % (45.5-73.1); Nucleated Red Blood Cells Perc 0.2 % (0.0-0.2); Platelet Count Result 445 k/mm3 (150-375); Red Blood Count 4.31 M/mm3 (4.6-6.20); Red Cell Distribution Width 13.9 % (11.5-14.5); White Blood Count 14.4 K/mm3 (4.5-10.0)
[2022-09-23] MEDS: SODIUM CHLORIDE 0.9% IV 1,000 ML 999 ML IV CONT ×2 (16:31→16:32)
[2022-09-23 16:39] LABS: Alanine Aminotransferase 42 U/L (6-50); Albumin Level 3.4 g/dL (3.5-5.1); Alkaline Phosphatase 97 U/L (38-126); Anion Gap 11 mmol/L (8-16); Aspartate Amino Transferase 48 U/L (17-59); Bilirubin,Total 0.5 mg/dL (0.2-1.3); Blood Urea Nitrogen 39 mg/dL (9-20); Calcium 8.8 mg/dL (8.4-10.2); Carbon Dioxide 24 mmol/L (22-30); Chloride 106 mmol/L (98-107); Estimated Glomerular Filt Rate > 60; Glucose 217 mg/dL (65-110); Potassium 4.6 mmol/L (3.4-5.0); Sodium 141 mmol/L (137-145)
[2022-09-23] MEDS: dilTIAZem HCl INJ 25 MG/5 ML VIAL 10 MG IV PUSH (16:47)
[2022-09-23] MEDS: dilTIAZem 100 MG/100 ML 100 MG/100 ML BAG IV CONT (16:48)
[2022-09-23 16:52] LABS: Lactic Acid Reflex 4.1 mmol/L (0.7-2.0)
[2022-09-23 16:52] LABS: Influenza A QL RT-PCR Negative (Negative); Influenza B QL RT-PCR Negative (Negative); SARS-CoV-2 RNA PCR Negative
--- NOTE | 2022-09-23 17:00 | PC.NURSE ---
EDP Wilson aware Midline is in axillary vein. EDP states okay to use access if needed.
--- NOTE | 2022-09-23 17:25 | PC.NURSE ---
Unable to get second set of cultures at this time. NOA Wilson aware.
--- NOTE | 2022-09-23 17:30 | PM.IMHP ---
H&P: HPI History of Present Illness Date/Time: 09/23/22 17:30 Chief Complaint: Blood in urine. Narrative: This is an unfortunate 67-year-old male with dementia, bipolar disorder, chronic atrial fibrillation, cardiomyopathy, type 2 diabetes mellitus, and hypertension who presented to the emergency department via EMS from [place] for evaluation of blood in urine. Source of information is snf records, external medication history, and electronic medical records. He is alert and oriented to self only and is unable to provide history. Paperwork that accompanies him indicates that he is a DNR/DNI with comfort focused treatment. Staff sent him in as there was apparently blood in his urine and Mace catheter today. It is noted that he was recently hospitalized with urosepsis. Blood and urine cultures were positive for Nora glabrata and he was discharged with a midline and received micafungin through 09/17/2022. In the emergency department today he has had temperatures as high as 101.4? F. He has been persistently tachycardic and is in AFib/RVR with rates ranging between the 120s to 140s at the time my evaluation. Blood pressures have been stable on a diltiazem drip which is currently at 15 mg an hour. Lactic acid level was 4.1 and WBC count was 14.4. Urine is grossly abnormal with 2+ blood, 1+ leukocyte esterase, 2+ bacteria, greater than 75 WBC, and positive nitrates. He tested negative for influenza and COVID. Chest x-ray showed small lung volumes but no acute findings. CT of the abdomen pelvis showed fat stranding around the bladder consistent with edema versus inflammation and subcutaneous gas and fat stranding in the buttocks and lower back in the midline consistent with inflammation at the site of a pressure wound. He has been started on broad-spectrum antibiotics and is being admitted in this setting. Dr. Chambers was consulted by the ED physician and he will see the patient tomorrow for possible debridement. Review of Systems Review of Systems: Unable to obtain given clinical condition as detailed above. [facility] Past Medical History Medical History (Updated 09/24/22 @ 01:21 by Noa Garcia PA-C) Bipolar disorder Cardiomyopathy Echo August 2022 showed normal LV chamber size, hyperdynamic LV function with an EF of greater than 70%, and indeterminate diastolic function. 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 Mother is listed as emergency contact however she has passed. Family members have repeatedly declined to discuss the patient and do not wish to be contacted. He apparently has been a snf since December 2015. Code status: DNR/DNI with comfort based treatment Spiritual care concerns: No Meds Home Medications and Allergies Home Medications Medication Instructions Recorded Confirmed Type acetaminophen 325 mg tablet 650 mg PO Q6H PRN Pain 08/30/22 08/30/22 History apixaban 5 mg tablet (Eliquis) 5 mg PO BID 08/30/22 08/30/22 History ergocalciferol (vitamin D2) 25,000 50,000 unit PO WEEKLY 08/30/22 08/30/22 History unit capsule hydrochlorothiazide 12.5 mg capsule 12.5 mg PO DAILY 08/30/22 08/30/22 History insulin detemir U-100 100 unit/mL 50 unit subcut DAILY 08/30/22 08/30/22 History subcutaneous solution (Levemir U-100 Insulin) insulin regular human 100 unit/mL 20 unit subcut TIDWMEAL 08/30/22 08/30/22 History injection solution (Novolin R Regular U-100 Insulin) memantine 10 mg tablet 10 mg PO BID 08/30/22 08/30/22 History metformin 1,000 mg tablet 1,00
[2022-09-23 19:27] LABS: Reflex Lactic Acid Yes or No Add Lactic
--- NOTE | 2022-09-23 20:04 | ADMGEN ---
This patient, David Fairbanks, was admitted to IMU Room 212-01 @2003. Patient/family oriented to hospital policies and general routines including ID bracelet, bed and alarms, visiting hours, pain management, procedures, bathroom and other care routines, personal items, smoking policy, room service/diet, and visiting hours. Information on how to activate the Rapid Response Team has been discussed. Patient/Family are encouraged to report perceived risks to care and to ask questions if they do not understand what they are told or what they should do.
[2022-09-23 20:43] LABS: Glucose Point of Care 348 mg/dl (65-105)
[2022-09-23] MEDS: dilTIAZem 100 MG/100 ML 100 MG/100 ML BAG 15 MG IV CONT (22:16)
[2022-09-23] MEDS: LACTATED RINGERS 1,000 ML 125 ML IV CONT (22:17)
[2022-09-24] VITALS (29 sets, daily range): BP systolic 79–125; BP diastolic 47–76; PULSE 69–157; RESP 18–28; TEMP 36.1–36.8; O2SAT 95–100; BMI 35.4
[2022-09-24] MEDS: CLINDAMYCIN 900 MG/D5W 50 ML 900 MG/50 ML PIGGYBACK 50 MG IVPB ×3 (02:16→22:05)
[2022-09-24 04:38] LABS: Basophils Absolute Auto 0.1 K/mm3 (0.0-0.1); Basophils Percent Auto 0.4 % (0.2-1.2); Eosinophils Absolute Auto 0.1 K/mm3 (0-0.3); Eosinophils Percent Auto 0.8 % (0-4.4); Hematocrit 30.3 % (42.0-52.0); Hemoglobin 9.2 g/dL (14.0-18.0); Immature Granulocyte Percent A 0.9 % (0-0.5); Lymphocytes Absolute Auto 1.51 K/mm3 (0.9-3.2); Lymphocytes Percent Auto 13.2 % (18.3-44.2); Mean Corpuscular HGB Conc 30.4 g/dl (32-36); Mean Corpuscular Hemoglobin 26.4 pg (26-34); Mean Corpuscular Volume 87.1 fl (80-100); Mean Platelet Volume 9.9 fl (7.4-10.4); Monocytes Percent Auto 8.3 % (2.6-8.5); Neutrophils Absolute Auto 8.8 K/mm3 (1.3-6.7); Neutrophils Percent Auto 76.4 % (45.5-73.1); Platelet Count Result 391 k/mm3 (150-375); Red Blood Count 3.48 M/mm3 (4.6-6.20); White Blood Count 11.5 K/mm3 (4.5-10.0)
[2022-09-24] MEDS: LACTATED RINGERS 1,000 ML 125 ML IV CONT ×3 (04:56→22:03)
[2022-09-24 05:10] LABS: Alanine Aminotransferase 30 U/L (6-50); Albumin Level 2.7 g/dL (3.5-5.1); Alkaline Phosphatase 70 U/L (38-126); Anion Gap 10 mmol/L (8-16); Aspartate Amino Transferase 28 U/L (17-59); Bilirubin,Total 0.5 mg/dL (0.2-1.3); Blood Urea Nitrogen 23 mg/dL (9-20); Calcium 7.5 mg/dL (8.4-10.2); Carbon Dioxide 16 mmol/L (22-30); Chloride 106 mmol/L (98-107); Estimated CRCL calculation 100 ml/min; Estimated Glomerular Filt Rate > 60; Glucose 288 mg/dL (65-110); Magnesium 1.8 mg/dL (1.6-2.3); Potassium 3.6 mmol/L (3.4-5.0); Sodium 132 mmol/L (137-145)
--- NOTE | 2022-09-24 05:16 | PC.NURSE ---
monitored the charting and medication dispensing done by imtiaz paulino rn an i agree with everything.
[2022-09-24] MEDS: METOPROLOL TARTRATE INJ 5 MG/5 ML VIAL IV PUSH (10:09)
[2022-09-24] MEDS: METOPROLOL TARTRATE 25 MG TABLET 75 MG PO ×2 (10:20→22:07)
[2022-09-24 10:25] LABS: Glucose Point of Care 332 mg/dl (65-105)
--- NOTE | 2022-09-24 11:04 | PM.CNCAR ---
Assessment and Plan Assessment and plan (1) Atrial fibrillation with rapid ventricular response: Code(s): I48.91 - Unspecified atrial fibrillation Status: Acute Assessment and Plan: Permanent atrial fibrillation difficult to control previously managed with oral metoprolol 75 mg p.o. q.8 hour and diltiazem 60 mg p.o. q.6 hours. If able to take p.o. resume metoprolol tartrate 75 mg p.o. q.8h otherwise give IV metoprolol 5 mg now and observe response. Heart rate remains refractory despite AV lidia blocking agents may consider discontinuation of diltiazem in favor of amiodarone. Will hold off for now and observe response to AV lidia blocking agent therapy as noted above. Continue systemic anticoagulation and less surgical debridement is anticipated. Resume systemic anticoagulation as soon as is clinically feasible. (2) Sepsis: Code(s): A41.9 - Sepsis, unspecified organism Status: Acute Assessment and Plan: IV antibiotics. Cultures pending. Patient has multiple sources including urine, pressure wound, and midline catheter. I recommend discontinuation of midline catheter if clinically feasible and particularly if nonfunctional. Additional management per primary service and surgical service. Patient is quite ill with multiple comorbidities. Prognosis is guarded. (3) Acute kidney injury: Code(s): N17.9 - Acute kidney failure, unspecified Status: Acute Assessment and Plan: Improved with hydration. Continue to monitor on routine basis. Monitor electrolytes closely. (4) Infected pressure ulcer: Code(s): L89.90 - Pressure ulcer of unspecified site, unspecified stage; L08.9 - Local infection of the skin and subcutaneous tissue, unspecified Status: Acute Assessment and Plan: As above, surgical consult and management per the recommendations. Possible debridement. Anticoagulation on hold in this regard at this time. (5) Insulin dependent type 2 diabetes mellitus: Code(s): E11.9 - Type 2 diabetes mellitus without complications; Z79.4 - custodial (current) use of insulin Status: Acute Assessment and Plan: Management per primary service. (6) Dementia: Code(s): F03.90 - Unspecified dementia, unspecified severity, without behavioral disturbance, psychotic disturbance, mood disturbance, and anxiety Status: Acute Assessment and Plan: Chronic, baseline. (7) Chronic anticoagulation: Code(s): Z79.01 - director long term care (current) use of anticoagulants Status: Acute Assessment and Plan: As above, resume Eliquis 5 mg b.i.d. as clinically appropriate for stroke risk reduction due to atrial fibrillation. Follow H&H. Monitor for bleeding. History of Present Illness History of Present Illness Consult date/time: Date of service: 09/24/22 11:04 Requesting physician: Nao Garcia PA-C Consult reason: atrial fibrillation Reason For Visit: Sepsis Narrative: Patient is a rather complicated and unfortunate 67-year-old male with past medical history significant for permanent atrial fibrillation, dementia, bipolar disorder, type 2 diabetes mellitus, hypertension who is a resident of [place] and reported baseline orientation to self DNR/DNI who was sent to the emergency department due to concern for blood in his urine through Mace catheter. Patient has recent hospitalization for urosepsis blood cultures positive for Nora glabrata subsequently discharged with midline catheter through which he received micafungin to be completed 09/17/2022. In the ER he was noted to be febrile and in atrial fibrillation with rapid ventricular response heart rate in the 140s for which he was started on diltiazem infusion titrated to 15 milligrams/hour. Lactic acid was elevated 4.1 as was his white blood cell count 14.4. Urinalysis was abnormal. Patient is not able to provide any additional history and information is obtained thro
[2022-09-24 12:00] LABS: Glucose Point of Care 387 mg/dl (65-105)
[2022-09-24] MEDS: dilTIAZem 100 MG/100 ML 100 MG/100 ML BAG 15 MG IV CONT ×2 (12:33→22:11)
[2022-09-24] MEDS: INSULIN ASPART (*BKC) 100 UNITS/ML SUB-Q (12:34)
--- NOTE | 2022-09-24 14:35 | PM.CNGS ---
Assessment and Plan Assessment and plan (1) Infected pressure ulcer: Code(s): L89.90 - Pressure ulcer of unspecified site, unspecified stage; L08.9 - Local infection of the skin and subcutaneous tissue, unspecified Status: Acute Assessment and Plan: The patient has a necrotic unstageable sacral decubitus ulcer. There is purulent drainage, a foul odor, and crepitus on exam. The patient does have multiple co-morbidities and is anticoagulated, which increases his surgical risks, but this could potentially be the source of his sepsis. We would recommend to proceed with excisional debridement of the sacral decubitus ulcer by Dr. Chambers in the OR. Wound care was consulted and had initiated Dakin's dressing changes. Will re-evaluate local wound care after debridement. Continue broad-spectrum IV antibiotics. Continue with frequent turning and will order specialty mattress for pressure reduction. (2) Sepsis: Code(s): A41.9 - Sepsis, unspecified organism Status: Acute Assessment and Plan: Could be secondary to the sacral decubitus ulcer or from urinary source. Plan to go to the OR today for source control. Continue broad-spectrum IV antibiotics. Blood and urine cultures pending. (3) Abnormal urinalysis: Code(s): R82.90 - Unspecified abnormal findings in urine Status: Acute Assessment and Plan: Patient presented with Mace from shelter and grossly abnormal UA. Recently treated for Nora glabrata fungemia and UTI. Urine culture pending. Management per Hospitalist. (4) Atrial fibrillation with rapid ventricular response: Code(s): I48.91 - Unspecified atrial fibrillation Status: Acute Assessment and Plan: HR was in the 150's on the diltiazem drip when I saw the patient this morning. Cardiology has evaluated the patient and he is now rate-controlled when re-evaluated. (5) Chronic anticoagulation: Code(s): Z79.01 - intermediate manager (current) use of anticoagulants Status: Acute Assessment and Plan: Continue to hold Eliquis for surgery. (6) Insulin dependent type 2 diabetes mellitus: Code(s): E11.9 - Type 2 diabetes mellitus without complications; Z79.4 - group home (current) use of insulin Status: Acute (7) Dementia: Code(s): F03.90 - Unspecified dementia, unspecified severity, without behavioral disturbance, psychotic disturbance, mood disturbance, and anxiety Status: Acute (8) Obesity (BMI 30-39.9): Code(s): E66.9 - Obesity, unspecified Status: Acute Plan I have discussed the patient's case and plan of care with Dr. Chambers. Thank you for allowing us to see the patient in consultation and we will continue to follow along with you. History of Present Illness Consult details Consult date: 09/24/22 Reason for consult: other (Sacral decubitus ulcer) Requesting physician: Alesha Wilson MD Narrative: This is a 66-year-old man with dementia, bipolar disorder, chronic atrial fibrillation on Eliquis, cardiomyopathy, type 2 diabetes mellitus, and hypertension, who presented to the emergency department via EMS from [place] for evaluation of hematuria. Given his dementia he is a poor historian, therefore his history is obtained from electronic medical record. He is alert and oriented to self but unable to answer historical questions. He had a Mace catheter at the shelter and staff found him to have blood in his catheter yesterday, therefore he was brought into the ER. In the ER, he was found to have a temperature as high as 101.4? F and was persistently tachycardic with AFib with RVR. His record shows heart rates anywhere from 120 to 160s. Labs were significant for a WBC count of 14,400 and lactic acid of 4.1. Urinalysis is grossly abnormal and urine culture pending. Blood cultures were drawn and are pending. He had a chest x-ray that showed small lung volumes but no acute findings. CT scan of the abdomen and pelvis s
[2022-09-24] MEDS: SALINE LOCK FLUSH 10 ML IV PUSH ×2 (15:53→22:10)
--- NOTE | 2022-09-24 17:23 | PC.NURSE ---
Patient to OR via hospital bed. IV intact. Patient sent with additional cardizem and 1800 imipenem dose with preop nurses. Preop team paused cardizem drip to transfer patient.
[2022-09-24] MEDS: SILVERGEL (ELTA) 45 ML 1 APPLIC TOPICAL (17:26)
[2022-09-24] MEDS: SOD HYPOCHLORITE 1/4 STRENGTH 473 ML 1 APPLIC TOPICAL (17:26)
--- NOTE | 2022-09-24 17:30 | PM.IMPN ---
Progress Note: A&P Assessment and Plan (1) Sepsis: Code(s): A41.9 - Sepsis, unspecified organism Status: Acute Assessment and Plan: Present on admission with tachycardia, leukocytosis, and lactic acidosis in the setting infection. Lactic acid level has improved somewhat with IV fluids but remains elevated. Blood, urine, and wound cultures pending. 09/24/2022 interval history: patient with dementia unable to provide any review of symptoms, patient presented with subacute in his gas and fat stranding in the buttock and lower back in the midline consistent with pressure ulcer and necrotizing wound patient is seen by surgery service and will have debridement today possible will continue to monitor. (2) Infected pressure ulcer: Code(s): L89.90 - Pressure ulcer of unspecified site, unspecified stage; L08.9 - Local infection of the skin and subcutaneous tissue, unspecified Status: Acute Assessment and Plan: He has been started on vancomycin, imipenem, and clindamycin per antibiotic stewardship recommendations. Wound culture pending. Dr. Chambers consulted by ED physician and he will see the patient in the morning for possible debridement. (3) Abnormal urinalysis: Code(s): R82.90 - Unspecified abnormal findings in urine Status: Acute Assessment and Plan: Urine culture pending. Recently treated for Nora glabrata fungemia and UTI. (4) Atrial fibrillation with rapid ventricular response: Code(s): I48.91 - Unspecified atrial fibrillation Status: Acute Assessment and Plan: Currently on a diltiazem drip with some improvement. Continue metoprolol. If rate remains poorly controlled consider amiodarone as he has been on Eliquis. (5) Insulin dependent type 2 diabetes mellitus: Code(s): E11.9 - Type 2 diabetes mellitus without complications; Z79.4 - buttermilk drier operator (current) use of insulin Status: Acute Assessment and Plan: Continue basal insulin. Initiate sliding scale insulin, Accu-Cheks, and hypoglycemic protocol. (6) Chronic anticoagulation: Code(s): Z79.01 - buttermilk drier operator (current) use of anticoagulants Status: Acute Assessment and Plan: Continue Eliquis. Plan Patient has DNR/DNI paperwork with comfort focus measures. His mother is and remaining family members do not want to be involved in his care or decision making. DNR/DNI will be honored. Continue current treatment, if he declines it is unlikely that he would have wanted to be placed on a ventilator or started on vasopressors. Subjective Date/time seen: 09/24/22 17:30 Chief Complaint: Blood in urine. Narrative: This is an unfortunate 67-year-old male with dementia, bipolar disorder, chronic atrial fibrillation, cardiomyopathy, type 2 diabetes mellitus, and hypertension who presented to the emergency department via EMS from [place] for evaluation of blood in urine. Source of information is retirement records, external medication history, and electronic medical records. He is alert and oriented to self only and is unable to provide history. Paperwork that accompanies him indicates that he is a DNR/DNI with comfort focused treatment. Staff sent him in as there was apparently blood in his urine and Mace catheter today. It is noted that he was recently hospitalized with urosepsis. Blood and urine cultures were positive for Nora glabrata and he was discharged with a midline and received micafungin through 09/17/2022. In the emergency department today he has had temperatures as high as 101.4? F. He has been persistently tachycardic and is in AFib/RVR with rates ranging between the 120s to 140s at the time my evaluation. Blood pressures have been stable on a diltiazem drip which is currently at 15 mg an hour. Lactic acid level was 4.1 and WBC count was 14.4. Urine is grossly abnormal with 2+ blood, 1+ leukocyte esterase, 2+ bacteria, greater than 75 WBC, and positive nitrates.
[2022-09-24] MEDS: LACTATED RINGERS 1,000 ML 30 ML IV CONT (17:35)
[2022-09-24 17:39] LABS: Glucose Point of Care 290 mg/dl (65-105)
--- NOTE | 2022-09-24 17:59 | WPDANESEPPF ---
Anes - Initial Pre Proc Eval Procedure: Operation Date: 09/24/22 17:45 Proposed Procedures p Incision and Debridement Sacral Decubitus - Orville Chambers DO Date/Time: 09/24/22 17:59 Surgeon: Funmilayo Mtz DO Pre Op Diagnosis: Sepsis Patient Data Age: 67 Gender: M Height: 1.78 m Weight: 112 kg Last Vital Signs Temp 36.6 C 09/24/22 17:40 Pulse 102 H 09/24/22 17:40 Resp 20 09/24/22 17:40 BP 90/47 L 09/24/22 17:40 Pulse Ox 99 09/24/22 17:40 O2 Del Method Room Air 09/24/22 17:40 Allergies Allergy/AdvReac Type Severity Reaction Status Date / Time aspirin Allergy Other Verified 08/30/22 04:41 Home Medications Medication Instructions Recorded Confirmed Type acetaminophen 325 mg tablet 650 mg PO Q6H PRN Pain 08/30/22 09/24/22 History (Tylenol) apixaban 5 mg tablet (Eliquis) 5 mg PO BID 08/30/22 09/24/22 History ergocalciferol (vitamin D2) 25,000 50,000 unit PO WEEKLY 08/30/22 09/24/22 History unit capsule insulin detemir U-100 100 unit/mL 50 unit subcut DAILY 08/30/22 09/24/22 History subcutaneous solution (Levemir U-100 Insulin) insulin regular human 100 unit/mL 20 unit subcut TIDWMEAL 08/30/22 09/24/22 History injection solution (Novolin R Regular U-100 Insulin) memantine 10 mg tablet 10 mg PO BID 08/30/22 09/24/22 History metformin 1,000 mg tablet 1,000 mg PO BID 08/30/22 09/24/22 History multivit with minerals-iron 18 1 tablet PO DAILY 08/30/22 09/24/22 History mg-folic ac 400 mcg-vit K 25 mcg tablet (Adults Multivitamin) pravastatin 40 mg tablet 40 mg PO DAILY 08/30/22 09/24/22 History thiamine HCl (vitamin B1) 100 mg 100 mg PO DAILY 08/30/22 09/24/22 History tablet (Vitamin B-1) apixaban 5 mg tablet (Eliquis) 5 mg PO Q12HR #60 tabs 09/11/22 09/24/22 Rx metoprolol tartrate 25 mg tablet 75 mg PO Q8HR #270 tabs 09/11/22 09/24/22 Rx micafungin 100 mg intravenous 100 mg IV DAILY #7 ea 09/11/22 09/24/22 Rx solution (Mycamine) tamsulosin 0.4 mg capsule 0.4 mg PO QAM #30 caps 09/11/22 09/24/22 Rx diltiazem HCl 60 mg tablet 60 mg PO Q6HR 09/24/22 09/24/22 History (Cardizem) Laboratory Tests 09/23/22 09/23/22 09/24/22 19:39 20:30 04:01 WBC 11.5 K/mm3 H K/mm3 (4.5-10.0) RBC 3.48 M/mm3 L M/mm3 (4.6-6.20) Hgb 9.2 g/dL L g/dL (14.0-18.0) Hct 30.3 % L % (42.0-52.0) MCV 87.1 fl fl (80-100) MCH 26.4 pg pg (26-34) MCHC 30.4 g/dl L g/dl (32-36) RDW 14.0 % % (11.5-14.5) Plt Count 391 k/mm3 H k/mm3 (150-375) MPV 9.9 fl fl (7.4-10.4) Immature Gran % (Auto) 0.9 % H % (0-0.5) Neut % (Auto) 76.4 % H % (45.5-73.1) Lymph % (Auto) 13.2 % L % (18.3-44.2) [place] % (Auto) 8.3 % % (2.6-8.5) Eos % (Auto) 0.8 % % (0-4.4) Baso % (Auto) 0.4 % % (0.2-1.2) Lymph # (Auto) 1.51 K/mm3 K/mm3 (0.9-3.2) [place] # (Auto) 1.0 K/mm3 H K/mm3 (0.1-0.6) Eos # (Auto) 0.1 K/mm3 K/mm3 (0-0.3) Baso # (Auto) 0.1 K/mm3 K/mm3 (0.0-0.1) Abs Immat Gran (auto) 0.10 K/mm3 H K/mm3 (0.00-0.031) Absolute Neuts (auto) 8.8 K/mm3 H K/mm3 (1.3-6.7) Absolute Nucleated RBC 0.0 K/mm3 K/mm3 (0.0-0.012) Nucleated RBC % 0.0 % % (0.0-0.2) Sodium Potassium Chloride Carbon Dioxide Anion Gap BUN Creatinine Estim Creat Clear Calc Estimated GFR Glucose POC Capillary Glucose 348 mg/dl H mg/dl (65-105) Lactic Acid 3.0 mmol/L H mmol/L (0.7-2.0) Calcium Magnesium Total Bilirubin AST ALT Alkaline Phosphatase Total Protein Albumin 09/24/22 09/24/22 09/24/22 04:01 08:23 11:30 WBC
--- NOTE | 2022-09-24 18:05 | WPDHPUPDATE1 ---
History and Physical Update Update Date/Time: 09/24/22 18:05 History and Physical has been reviewed, including an updated exam of the patient. There are NO changes in the patient's condition. Risks, benefits, and alternatives have been discussed and questions answered. Patient agrees to proceed with procedure.
[2022-09-24] MEDS: BUPIVACAINE/EPINEPHRINE 0.5% 30 ML VIAL INFILTRATE (18:43)
--- NOTE | 2022-09-24 19:03 | W.PM.PROC2 ---
Procedure Note - Detailed Date of Procedure 09/24/22 Pre-op Diagnosis Unstageable sacral decubitus ulcer Post-op Diagnosis Other (Stage III sacral decubitus ulcer) Procedure Performed Sharp excisional debridement stage III sacral decubitus ulcer including skin and subcutaneous fat measuring 15 cm x 12 cm Surgeon Orville Chambers, DO Anesthesia MAC and Local (0.5% bupivacaine with epinephrine) Indications This is a 67-year-old shelter patient who presented with hematuria and signs of sepsis. He has significant dementia and is unable to report any significant history. He was just hospitalized 2 weeks ago and had some deep tissue injury but no signs of necrotic wounds on his sacrum and buttock region. Now he has a large unstageable sacral decubitus ulcer with eschar with foul-smelling drainage. Decision was made to proceed with debridement of the sacral decubitus ulcer. Findings Sharp excisional debridement of sacral decubitus ulcer was performed. The necrotic tissue was excised using a 10 blade scalpel. Debridement included skin and subcutaneous fat. There did not appear to be any deep muscle or bone involvement. The necrotic tissue was adequately debrided and excised down to healthy bleeding tissue. The surface area measured 15 cm x 12 cm. The wound was then packed with 4 in Kerlix gauze soaked with Betadine solution. Description of Procedure Procedure as well as risks, benefits, and alternatives were discussed with the patient. 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 Written consent was obtained through myself and the hospitalist involved in his care. Patient was brought back to surgical suite. He was placed in right lateral decubitus position on the operating table. Time-out was done to confirm patient and procedure. IV sedation was then administered by the anesthesia department. His sacral and buttock region was prepped and draped in sterile fashion using Betadine prep. 0.5% bupivacaine with epinephrine was infiltrated locally around the healthy appearing skin and subcutaneous space. Sharp excisional debridement was then carried out using a 10 blade scalpel including skin and subcutaneous fat. Debridement was carried out down to healthy-appearing bleeding tissue. There were a few small areas of bleeding that were controlled with electrocautery. The wound was then irrigated with sterile saline. A 4 in Betadine-soaked Kerlix gauze was then packed within the wound followed by fluffed gauze, ABD pad, and tape. Estimated Blood Loss -10.0 Packing Yes (4 in Betadine-soaked Kerlix) Complications No immediate complications Condition Critical Disposition Floor ([facility]) [facility] Billing Surgery - Charge Forward: Surgery Billing
[2022-09-24 19:17] LABS: Glucose Point of Care 249 mg/dl (65-105)
--- NOTE | 2022-09-24 21:36 | PC.NURSE ---
patient returned from surgery at 2014
[2022-09-24] MEDS: MEMANTINE 10 MG TABLET PO (22:08)
[2022-09-24 23:28] LABS: Glucose Point of Care 279 mg/dl (65-105)
[2022-09-25] VITALS (16 sets, daily range): BP systolic 88–97; BP diastolic 47–63; PULSE 70–101; RESP 20–24; TEMP 35.9–37; O2SAT 96–100
[2022-09-25] MEDS: INSULIN ASPART (*BKC) 100 UNITS/ML SUB-Q ×4 (00:13→17:42)
[2022-09-25] MEDS: dilTIAZem 100 MG/100 ML 100 MG/100 ML BAG 15 MG IV CONT (05:11)
[2022-09-25] MEDS: LACTATED RINGERS 1,000 ML 125 ML IV CONT ×3 (05:12→21:43)
[2022-09-25] MEDS: CLINDAMYCIN 900 MG/D5W 50 ML 900 MG/50 ML PIGGYBACK 50 MG IVPB ×2 (05:13→13:22)
[2022-09-25] MEDS: METOPROLOL TARTRATE 25 MG TABLET 75 MG PO ×3 (05:14→21:45)
[2022-09-25] MEDS: SALINE LOCK FLUSH 10 ML IV PUSH ×3 (05:15→21:47)
[2022-09-25 06:41] LABS: Glucose Point of Care 303 mg/dl (65-105)
[2022-09-25 07:13] LABS: Hematocrit 26.9 % (42.0-52.0); Hemoglobin 8.2 g/dL (14.0-18.0); Mean Corpuscular HGB Conc 30.5 g/dl (32-36); Mean Corpuscular Hemoglobin 26.3 pg (26-34); Mean Corpuscular Volume 86.2 fl (80-100); Mean Platelet Volume 9.4 fl (7.4-10.4); Platelet Count Result 324 k/mm3 (150-375); Red Blood Count 3.12 M/mm3 (4.6-6.20); Red Cell Distribution Width 14.2 % (11.5-14.5); White Blood Count 10.9 K/mm3 (4.5-10.0)
[2022-09-25 07:17] LABS: Anion Gap 6 mmol/L (8-16); Blood Urea Nitrogen 12 mg/dL (9-20); Calcium 7.5 mg/dL (8.4-10.2); Carbon Dioxide 20 mmol/L (22-30); Chloride 109 mmol/L (98-107); Estimated CRCL calculation 131 ml/min; Estimated Glomerular Filt Rate > 60; Glucose 289 mg/dL (65-110); Potassium 3.4 mmol/L (3.4-5.0); Sodium 135 mmol/L (137-145)
[2022-09-25 07:43] LABS: Vancomycin Trough 17.1 ug/mL (10.0-20.0)
--- NOTE | 2022-09-25 08:05 | WPDANESPN ---
Anes - Prog Note Post-Op Date/Time: 09/25/22 08:05 Vital Signs: Last Vital Signs Temp 36.7 C 09/25/22 04:00 Pulse 94 09/25/22 05:14 Resp 20 09/25/22 04:00 BP 92/55 L 09/25/22 04:00 Pulse Ox 96 09/25/22 04:00 O2 Del Method Room Air 09/25/22 04:00 O2 Flow Rate 6 09/24/22 19:10 Pain Score (VAS): unable to assess due to patient's mental status I/O: Intake & Output 09/24/22 09/25/22 09/25/22 23:59 07:59 15:59 Intake Total 2250 2200 Output Total 2520 600 Balance -270 1600 Laboratory Tests 09/25/22 07:02 09/25/22 07:02 09/24/22 09/24/22 09/24/22 08:23 11:30 17:35 WBC RBC Hgb Hct MCV MCH MCHC RDW Plt Count MPV Sodium Potassium Chloride Carbon Dioxide Anion Gap BUN Creatinine Estim Creat Clear Calc Estimated GFR Glucose POC Capillary Glucose 332 H 387 H 290 H Calcium Vancomycin Trough 09/24/22 09/24/22 09/25/22 19:14 23:25 06:38 WBC RBC Hgb Hct MCV MCH MCHC RDW Plt Count MPV Sodium Potassium Chloride Carbon Dioxide Anion Gap BUN Creatinine Estim Creat Clear Calc Estimated GFR Glucose POC Capillary Glucose 249 H 279 H 303 H Calcium Vancomycin Trough 09/25/22 09/25/22 09/25/22 07:02 07:02 07:02 WBC 10.9 H RBC 3.12 L Hgb 8.2 L Hct 26.9 L MCV 86.2 MCH 26.3 MCHC 30.5 L RDW 14.2 Plt Count 324 MPV 9.4 Sodium 135 L Potassium 3.4 Chloride 109 H Carbon Dioxide 20 L Anion Gap 6 L BUN 12 D Creatinine 0.60 L Estim Creat Clear Calc 131 Estimated GFR > 60 Glucose 289 H POC Capillary Glucose Calcium 7.5 L Vancomycin Trough 17.1 Microbiology 09/24/22 04:01 Blood Blood Culture - Preliminary 09/24/22 04:01 Blood Blood Culture - Preliminary 09/23/22 16:07 Urine Catheterized Urine Culture - Preliminary Gram negative bacilli isolated 01/17/23 17:52 Blood Blood Culture - Preliminary 09/23/22 16:22 Blood Blood Culture - Preliminary Patient Feedback: Patient satisfied with anesthetic care.
[2022-09-25] MEDS: metFORMIN HCL 500 MG TABLET 1000 MG PO ×2 (09:15→17:49)
[2022-09-25] MEDS: MEMANTINE 10 MG TABLET PO ×2 (09:15→21:45)
[2022-09-25] MEDS: MULTIVITAMINS /C LUTEIN (CENTRUM SILVER) TABLET *BKC 1 TAB PO (09:16)
[2022-09-25] MEDS: PRAVASTATIN SODIUM 20 MG TABLET 40 MG PO (09:17)
[2022-09-25] MEDS: THIAMINE HCL 100 MG TABLET PO (09:17)
[2022-09-25] MEDS: TAMSULOSIN HCL 0.4 MG CAPSULE PO (09:17)
--- NOTE | 2022-09-25 11:40 | PM.PNCARD ---
Progress Note: A&P Assessment and Plan (1) Atrial fibrillation with rapid ventricular response: Code(s): I48.91 - Unspecified atrial fibrillation <FRANNY Ng - Last Filed: 09/25/22 11:48> Status: Acute <FRANNY Ng - Last Filed: 09/25/22 11:48> Assessment and Plan: Permanent atrial fibrillation difficult to control previously managed with oral metoprolol 75 mg p.o. q.8 hour and diltiazem 60 mg p.o. q.6 hours. Heart rate significantly improved on metoprolol 75mg q8 and IV diltiazem 15mg/hr. Will shift diltiazem to p.o. today. Resume systemic a/c for stroke prophylaxis with apixaban 5mg b.i.d. as soon as clinically appropriate. <FRANNY Ng - Last Filed: 09/25/22 11:48> (2) Sepsis: Code(s): A41.9 - Sepsis, unspecified organism <FRANNY Ng - Last Filed: 09/25/22 11:48> Status: Acute <FRANNY Ng - Last Filed: 09/25/22 11:48> Assessment and Plan: Cultures are pending, NGTD. Continue IV abx. Management per primary service. <FRANNY Ng - Last Filed: 09/25/22 11:48> (3) Acute kidney injury: Code(s): N17.9 - Acute kidney failure, unspecified <FRANNY Ng - Last Filed: 09/25/22 11:48> Status: Acute <FRANNY Ng - Last Filed: 09/25/22 11:48> Assessment and Plan: Resolved. <FRANNY Ng - Last Filed: 09/25/22 11:48> (4) Infected pressure ulcer: Code(s): L89.90 - Pressure ulcer of unspecified site, unspecified stage; L08.9 - Local infection of the skin and subcutaneous tissue, unspecified <FRANNY Ng - Last Filed: 09/25/22 11:48> Status: Acute <FRANNY Ng - Last Filed: 09/25/22 11:48> Assessment and Plan: S/p debridement. <FRANNY Ng - Last Filed: 09/25/22 11:48> (5) Insulin dependent type 2 diabetes mellitus: Code(s): E11.9 - Type 2 diabetes mellitus without complications; Z79.4 - [facility] (current) use of insulin <FRANNY Ng - Last Filed: 09/25/22 11:48> Status: Acute <FRANNY Ng - Last Filed: 09/25/22 11:48> Assessment and Plan: Management per primary service. <FRANNY gN - Last Filed: 09/25/22 11:48> (6) Dementia: Code(s): F03.90 - Unspecified dementia, unspecified severity, without behavioral disturbance, psychotic disturbance, mood disturbance, and anxiety <FRANNY Ng - Last Filed: 09/25/22 11:48> Status: Acute <FRANNY Ng - Last Filed: 09/25/22 11:48> Assessment and Plan: Chronic, baseline. 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 as clinically appropriate for stroke risk reduction due to atrial fibrillation. Follow H&H. Monitor for bleeding. <FRANNY Ng - Last Filed: 09/25/22 11:48> Assessment and Plan: Attending Addendum: I have personally seen and examined this patient at bedside. I agree with the above documentation and plan of care as outlined. -Patient denies chest pain or shortness of breath. Heart rate much better controlled at this time. No new issues overnight. Blood pressure transiently low postop yesterday evening better but a little soft systolic blood pressure in 90s. Exam: NAD, Awake, comfortable,nonfocal neuro exam No JVD Lungs CTA bilaterally Irreg irregular, S1/S2 Abd soft, NT/ND, +BS Ext no edema, clubbing, or cyanosis Plan of Care: Monitor H&H given worsening anemia. Monitor for bleeding. recommend resuming systemic anticoagulation provided H&H stable no evidence for bleed. DVT prophylaxis at a minimum. AFib bet
[2022-09-25 12:26] LABS: Glucose Point of Care 282 mg/dl (65-105)
[2022-09-25] MEDS: dilTIAZem HCL TAB 30 MG, dilTIAZem HCL TAB 60 MG 90 MG PO ×3 (13:47→23:39)
[2022-09-25] MEDS: SOD HYPOCHLORITE 1/4 STRENGTH 473 ML 1 APPLIC TOPICAL ×2 (14:00→21:46)
--- NOTE | 2022-09-25 16:03 | PM.PNGS ---
Progress Note: A&P Assessment and Plan (1) Infected pressure ulcer: Code(s): L89.90 - Pressure ulcer of unspecified site, unspecified stage; L08.9 - Local infection of the skin and subcutaneous tissue, unspecified Status: Acute Assessment and Plan: S/p excisional debridement in the OR yesterday. Found to have a stage III sacral decubitus ulcer only extending to the subcutaneous tissue. Dressing removed today and the wound appears stable. No areas of purulent drainage or significant necrotic tissue. Continue Dakin's soaked gauze dressing changes. Continue IV antibiotics. (2) Sepsis: Code(s): A41.9 - Sepsis, unspecified organism Status: Acute Assessment and Plan: Source could be sacral decubitus ulcer vs urinary source. Continue broad-spectrum IV antibiotics. Blood cx pending. Urine cx growing proteus mirabilis. (3) Atrial fibrillation with rapid ventricular response: Code(s): I48.91 - Unspecified atrial fibrillation Status: Acute (4) Acute UTI: Code(s): N39.0 - Urinary tract infection, site not specified Status: Acute (5) Chronic anticoagulation: Code(s): Z79.01 - [facility] (current) use of anticoagulants Status: Acute Assessment and Plan: Okay to resume anticoagulation tomorrow (6) Insulin dependent type 2 diabetes mellitus: Code(s): E11.9 - Type 2 diabetes mellitus without complications; Z79.4 - [facility] (current) use of insulin Status: Acute (7) Dementia: Code(s): F03.90 - Unspecified dementia, unspecified severity, without behavioral disturbance, psychotic disturbance, mood disturbance, and anxiety Status: Acute (8) Obesity (BMI 30-39.9): Code(s): E66.9 - Obesity, unspecified Status: Acute Plan I have discussed the patient's case and plan of care with Dr. Chambers. Subjective Subjective Date/Time Seen: 09/25/22 15:03 Post Op day: 1 (Sharp excisional debridement stage III sacral decubitus ulcer including skin and subcutaneous fat measuring 15 cm x 12 cm) Interval history: Patient with dementia. He denies any specific complaints at this time. He is seen with nursing staff to help assist in turning him. He denies any pain. Review of Systems Review of Systems: ROS unobtainable: Yes unobtainable due to medical condition (dementia) Exam Const: General: comfortable and alert Orientation/consciousness: confusion (at baseline) Skin: Other: Dressing removed from the stage III sacral decubitus ulcer with majority of the wound bed showing pale subcutaneous tissue and a few small areas of granulation tissue at the inferior aspect of the wound towards the anus. There is a small area of 1.5 cm tunneling towards the anus at 7 o'clock with granulation tissue. No purulent drainage or necrotic tissue. Applied a Dakin's soaked gauze dressing. Objective Data Vital Signs Vital Signs: Vital Signs - 24 hr 09/24/22 17:40 09/24/22 17:30 09/24/22 18:55 Temperature 97.9 F Pulse Rate 102 H 102 H 118 H Respiratory Rate 20 Blood Pressure 90/47 L 90/67 L 79/61 L Pulse Oximetry 99 Oxygen Delivery Room Air Oxygen Flow Rate 09/24/22 18:55 09/24/22 19:10 09/24/22 19:25 Temperature 97.6 F Pulse Rate 118 H 108 H 103 H Respiratory Rate 18 20 18 Blood Pressure 79/61 L 99/61 L 102/66 Pulse Oximetry 100 100 99 Oxygen Delivery Simple Face Mask Simple Face Mask Room Air Oxygen Flow Rate 6 6 09/24/22 19:40 09/24/22 19:50 09/24/22 20:00 Temperature 97.3 F L 97.8 F Pulse Rate 106 H 102 H 108 H Respiratory Rate 18 20 20 Blood Pressure 115/68 104/67 101/57 L Pulse Oximetry 96 96 97 Oxygen Delivery Room Air Room Air Oxygen Flow Rate 09/24/22 20:15 09/24/22 20:39 09/24/22 20:39 Temperature 97.6 F Pulse Rate 108 H 112 H 108 H Respiratory Rate 20 20 Blood Pressure 101/61 Pulse Oximetry 97 97 Oxygen Delivery Room Air Oxygen Flow Rate 09/24/22 22:07 09/24/22 22:11 0
[2022-09-25 17:13] LABS: Glucose Point of Care 244 mg/dl (65-105)
[2022-09-25] MEDS: SILVERGEL (ELTA) 45 ML 1 APPLIC TOPICAL (17:40)
[2022-09-25] MEDS: INSULIN GLARGINE (*BKC) 100 UNITS/ML 20 UNITS SUB-Q (17:41)
[2022-09-25] MEDS: cefTRIAXone 2 GM in SODIUM CHLORIDE 0.9% IV 100 ML 200 ML IVPB (17:43)
[2022-09-25] MEDS: metroNIDAZOLE 250 MG TABLET 500 MG PO ×2 (17:49→23:39)
--- NOTE | 2022-09-25 18:00 | PM.IMPN ---
Progress Note: A&P Assessment and Plan (1) Sepsis: Code(s): A41.9 - Sepsis, unspecified organism Status: Acute Assessment and Plan: Present on admission with tachycardia, leukocytosis, and lactic acidosis in the setting infection. Lactic acid level has improved somewhat with IV fluids but remains elevated. Blood, urine, and wound cultures pending. 09/25/2022 interval history: patient with dementia unable to provide any review of symptoms, patient presented with subcutaneous gas and fat stranding in the buttock and lower back in the midline consistent with pressure ulcer and possibly necrotizing wound, patient was seen by surgery service and had debridement on 09/24 and does not suspect patient has necrotizing wound, upon arrival patient had and fibrillation with RVR patient was started on diltiazem drip and metoprolol 75 mg q8, seen by cardiology further recommendation to follow. (2) Infected pressure ulcer: Code(s): L89.90 - Pressure ulcer of unspecified site, unspecified stage; L08.9 - Local infection of the skin and subcutaneous tissue, unspecified Status: Acute Assessment and Plan: He has been started on vancomycin, imipenem, and clindamycin per antibiotic stewardship recommendations. Wound culture pending. Dr. Chambers consulted by ED physician and he will see the patient in the morning for possible debridement. (3) Abnormal urinalysis: Code(s): R82.90 - Unspecified abnormal findings in urine Status: Acute Assessment and Plan: Urine culture pending. Recently treated for Nora glabrata fungemia and UTI. (4) Atrial fibrillation with rapid ventricular response: Code(s): I48.91 - Unspecified atrial fibrillation Status: Acute Assessment and Plan: Currently on a diltiazem drip with some improvement. Continue metoprolol. If rate remains poorly controlled consider amiodarone as he has been on Eliquis. 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 Initiate sliding scale insulin, Accu-Cheks, and hypoglycemic protocol. (6) Chronic anticoagulation: Code(s): Z79.01 - intermission coordinator (current) use of anticoagulants Status: Acute Assessment and Plan: Continue Eliquis. Plan Patient has DNR/DNI paperwork with comfort focus measures. His mother is and remaining family members do not want to be involved in his care or decision making. DNR/DNI will be honored. Continue current treatment, if he declines it is unlikely that he would have wanted to be placed on a ventilator or started on vasopressors. Subjective Date/time seen: 09/25/22 18:00 Present on admission with tachycardia, leukocytosis, and lactic acidosis in the setting infection. Lactic acid level has improved somewhat with IV fluids but remains elevated. Blood, urine, and wound cultures pending. 09/25/2022 interval history: patient with dementia unable to provide any review of symptoms, patient presented with subcutaneous gas and fat stranding in the buttock and lower back in the midline consistent with pressure ulcer and possibly necrotizing wound, patient was seen by surgery service and had debridement on 09/24 and does not suspect patient has necrotizing wound, upon arrival patient had and fibrillation with RVR patient was started on diltiazem drip and metoprolol 75 mg q8, seen by cardiology further recommendation to follow. Review of Systems Review of Systems: ROS unobtainable: Yes unobtainable due to medical condition Exam Narrative: moderately obese Patient is comfortable, NAD HEENT: eyes are clear and none icteric LUNGS: normal respiratory effort ABD: distended Lower extremities: no edema SKIN: nonjaundiced Neuro: grossly intact dementia. Objective Data Vital Sig
[2022-09-25 21:46] LABS: Glucose Point of Care 218 mg/dl (65-105)
[2022-09-25] MEDS: HYDROcodone/acetaminophen (*CRX) 7.5-325 MG TABLET 1 TAB PO (21:46)
[2022-09-26] VITALS (16 sets, daily range): BP systolic 98–111; BP diastolic 56–67; PULSE 75–111; RESP 16–24; TEMP 36.5–36.8; O2SAT 96–100
[2022-09-26 05:19] LABS: Estimated CRCL calculation 131 ml/min; Estimated Glomerular Filt Rate > 60
[2022-09-26] MEDS: dilTIAZem HCL TAB 30 MG, dilTIAZem HCL TAB 60 MG 90 MG PO ×3 (05:58→21:00)
[2022-09-26] MEDS: metroNIDAZOLE 250 MG TABLET 500 MG PO ×3 (05:59→20:59)
[2022-09-26] MEDS: LACTATED RINGERS 1,000 ML 125 ML IV CONT ×2 (05:59→16:36)
[2022-09-26] MEDS: METOPROLOL TARTRATE 25 MG TABLET 75 MG PO ×3 (05:59→21:07)
[2022-09-26] MEDS: SALINE LOCK FLUSH 10 ML IV PUSH ×3 (06:00→22:51)
[2022-09-26 06:30] LABS: Glucose Point of Care 228 mg/dl (65-105)
[2022-09-26 08:04] LABS: Glucose Point of Care 242 mg/dl (65-105)
[2022-09-26] MEDS: INSULIN ASPART (*BKC) 100 UNITS/ML SUB-Q ×3 (08:29→18:39)
[2022-09-26] MEDS: metFORMIN HCL 500 MG TABLET 1000 MG PO ×2 (08:36→20:59)
[2022-09-26] MEDS: MEMANTINE 10 MG TABLET PO ×2 (08:38→21:06)
[2022-09-26] MEDS: PRAVASTATIN SODIUM 20 MG TABLET 40 MG PO (08:39)
[2022-09-26] MEDS: MULTIVITAMINS /C LUTEIN (CENTRUM SILVER) TABLET *BKC 1 TAB PO (08:39)
[2022-09-26] MEDS: TAMSULOSIN HCL 0.4 MG CAPSULE PO (08:40)
[2022-09-26] MEDS: THIAMINE HCL 100 MG TABLET PO (08:40)
[2022-09-26] MEDS: HYDROcodone/acetaminophen (*CRX) 7.5-325 MG TABLET 1 TAB PO ×2 (08:52→15:04)
[2022-09-26] MEDS: SOD HYPOCHLORITE 1/4 STRENGTH 473 ML 1 APPLIC TOPICAL ×2 (08:54→21:08)
[2022-09-26] MEDS: SILVERGEL (ELTA) 45 ML 1 APPLIC TOPICAL (08:56)
--- NOTE | 2022-09-26 09:41 | PM.PNGS ---
Progress Note: A&P Assessment and Plan (1) Infected pressure ulcer: Code(s): L89.90 - Pressure ulcer of unspecified site, unspecified stage; L08.9 - Local infection of the skin and subcutaneous tissue, unspecified Status: Acute Assessment and Plan: S/p excisional debridement in the OR 09/24/22. Found to have a stage III sacral decubitus ulcer only extending to the subcutaneous tissue. Dressing removed today and the wound appears stable. No areas of purulent drainage or significant necrotic tissue. Continue Dakin's soaked gauze dressing changes. Continue IV antibiotics. (2) Sepsis: Code(s): A41.9 - Sepsis, unspecified organism Status: Acute Assessment and Plan: Source could be sacral decubitus ulcer vs urinary source. Continue broad-spectrum IV antibiotics. Blood cx pending. Urine cx growing proteus mirabilis. 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 Bowels moving. Exam Back/Spine/Pelvis: Sacrum: other (Sacral wound dry without bleeding. No purulent drainage.) Objective Data Vital Signs Vital Signs: Vital Signs - 24 hr 09/25/22 10:00 09/25/22 12:00 09/25/22 13:16 Temperature 36.3 C L Pulse Rate 80 91 92 Respiratory Rate 22 H Blood Pressure 97/63 L Pulse Oximetry 100 Oxygen Delivery 09/25/22 13:43 09/25/22 15:40 09/25/22 12:00 Temperature Pulse Rate 92 70 92 Respiratory Rate Blood Pressure Pulse Oximetry 99 Oxygen Delivery Room Air 09/25/22 14:00 09/25/22 12:00 09/25/22 16:00 Temperature Pulse Rate 101 H Respiratory Rate Blood Pressure Pulse Oximetry 99 99 Oxygen Delivery Room Air Room Air 09/25/22 16:00 09/25/22 16:00 09/25/22 18:00 Temperature 36.5 C Pulse Rate 81 81 97 Respiratory Rate 24 H Blood Pressure 96/47 L Pulse Oximetry 100 Oxygen Delivery 09/25/22 20:00 09/25/22 21:45 09/25/22 20:00 Temperature 37.0 C Pulse Rate 82 84 84 Respiratory Rate 24 H 24 H Blood Pressure 88/55 L Pulse Oximetry 100 100 Oxygen Delivery Room Air 09/25/22 20:00 09/25/22 22:00 09/26/22 00:00 Temperature 36.8 C Pulse Rate 87 79 90 Respiratory Rate 24 H Blood Pressure 101/56 L Pulse Oximetry 100 Oxygen Delivery 09/26/22 00:00 09/26/22 00:00 09/26/22 04:00 Temperature 36.6 C Pulse Rate 84 90 85 Respiratory Rate 24 H 20 Blood Pressure 110/67 Pulse Oximetry 100 100 Oxygen Delivery Room Air 09/26/22 02:00 09/26/22 04:00 09/26/22 04:00 Temperature Pulse Rate 81 75 85 Respiratory Rate 20 Blood Pressure Pulse Oximetry 100 Oxygen Delivery Room Air 09/26/22 05:59 09/26/22 06:00 09/26/22 07:25 Temperature 36.8 C Pulse Rate 90 102 H 81 Respiratory Rate 18 Blood Pressure 111/65 Pulse Oximetry 97 Oxygen Delivery Intake/Output Intake/Output: Intake & Output 09/23/22 09/24/22 09/25/22 09/26/22 23:59 23:59 23:59 23:59 Intake Total 2650 5570 5770 1100 Output Total 2238 2250 600 Balance 7925 9487 288
[2022-09-26 11:37] LABS: Glucose Point of Care 270 mg/dl (65-105)
--- NOTE | 2022-09-26 15:51 | PC.NURSE ---
On 09/26/22, the student, [Belle Rhoades], provided care and completed [facility] documentation on this patient. I have reviewed the student's documentation and agree with the findings.
[2022-09-26] MEDS: INSULIN GLARGINE (*BKC) 100 UNITS/ML 20 UNITS SUB-Q (16:38)
[2022-09-26 17:01] LABS: Hematocrit 31.8 % (42.0-52.0); Hemoglobin 9.7 g/dL (14.0-18.0); Mean Corpuscular HGB Conc 30.5 g/dl (32-36); Mean Corpuscular Hemoglobin 26.6 pg (26-34); Mean Corpuscular Volume 87.4 fl (80-100); Mean Platelet Volume 9.4 fl (7.4-10.4); Platelet Count Result 388 k/mm3 (150-375); Red Blood Count 3.64 M/mm3 (4.6-6.20); Red Cell Distribution Width 14.1 % (11.5-14.5)
[2022-09-26 18:20] LABS: Glucose Point of Care 219 mg/dl (65-105)
[2022-09-26] MEDS: cefTRIAXone 2 GM in SODIUM CHLORIDE 0.9% IV 100 ML 200 ML IVPB (18:35)
--- NOTE | 2022-09-26 18:38 | PM.IMPN ---
Progress Note: A&P Assessment and Plan (1) Sepsis: Code(s): A41.9 - Sepsis, unspecified organism Status: Acute Assessment and Plan: Present on admission with tachycardia, leukocytosis, and lactic acidosis in the setting infection. Lactic acid level has improved somewhat with IV fluids but remains elevated. Blood, urine, and wound cultures pending. 09/26/2022 interval history: patient with dementia unable to provide any review of symptoms, patient presented with subcutaneous gas and fat stranding in the buttock and lower back in the midline consistent with pressure ulcer and possibly necrotizing wound, patient was seen by surgery service and had debridement on 09/24 and does not suspect patient has necrotizing wound, upon arrival patient had and fibrillation with RVR patient was started on diltiazem drip and metoprolol 75 mg q8, seen by cardiology further recommendation to follow. patient is off diltiazem drip currently on diltiazem 90 mg q.6h and metoprolol 75 mg q.8 rate is controlled and anticoagulated with Eliquis, patient remains clinically stable will continue to monitor unfortunately patient is not able to participate in PT OT (2) Infected pressure ulcer: Code(s): L89.90 - Pressure ulcer of unspecified site, unspecified stage; L08.9 - Local infection of the skin and subcutaneous tissue, unspecified Status: Acute Assessment and Plan: He has been started on vancomycin, imipenem, and clindamycin per antibiotic stewardship recommendations. Wound culture pending. Dr. Chambers consulted by ED physician and he will see the patient in the morning for possible debridement. (3) Abnormal urinalysis: Code(s): R82.90 - Unspecified abnormal findings in urine Status: Acute Assessment and Plan: Urine culture pending. Recently treated for Nora glabrata fungemia and UTI. (4) Atrial fibrillation with rapid ventricular response: Code(s): I48.91 - Unspecified atrial fibrillation Status: Acute Assessment and Plan: Currently on a diltiazem drip with some improvement. Continue metoprolol. If rate remains poorly controlled consider amiodarone as he has been on Eliquis. 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 Initiate sliding scale insulin, Accu-Cheks, and hypoglycemic protocol. (6) Chronic anticoagulation: Code(s): Z79.01 - terminal clerk (current) use of anticoagulants Status: Acute Assessment and Plan: Continue Eliquis. Plan Patient has DNR/DNI paperwork with comfort focus measures. His mother is and remaining family members do not want to be involved in his care or decision making. DNR/DNI will be honored. Continue current treatment, if he declines it is unlikely that he would have wanted to be placed on a ventilator or started on vasopressors. Subjective Date/time seen: 09/26/22 18:38 Present on admission with tachycardia, leukocytosis, and lactic acidosis in the setting infection. Lactic acid level has improved somewhat with IV fluids but remains elevated. Blood, urine, and wound cultures pending. 09/26/2022 interval history: patient with dementia unable to provide any review of symptoms, patient presented with subcutaneous gas and fat stranding in the buttock and lower back in the midline consistent with pressure ulcer and possibly necrotizing wound, patient was seen by surgery service and had debridement on 09/24 and does not suspect patient has necrotizing wound, upon arrival patient had and fibrillation with RVR patient was started on diltiazem drip and metoprolol 75 mg q8, seen by cardiology further recommendation to follow. patient is off diltiazem drip currently on diltiazem 90 mg q.6h and metoprolol 75 mg q.8 rate is controlled and antic
--- NOTE | 2022-09-26 19:51 | PC.NURSE ---
NOTIFIED PHARMACY OF MISSING MEDS FROM IMU TRANSFER.
--- NOTE | 2022-09-26 22:59 | PC.NURSE ---
NOTIFIED [facility] REGARDING SEPSIS SCREENING. PATIENT ADMITTED WITH AND CURRENTLY BEING TREATED FOR.
[2022-09-27] VITALS (12 sets, daily range): BP systolic 100–103; BP diastolic 57–62; PULSE 78–112; RESP 16–20; TEMP 36.4–36.7; O2SAT 79–100
[2022-09-27] MEDS: metroNIDAZOLE 250 MG TABLET 500 MG PO ×5 (01:57→23:04)
[2022-09-27] MEDS: dilTIAZem HCL TAB 30 MG, dilTIAZem HCL TAB 60 MG 90 MG PO ×5 (01:57→23:04)
[2022-09-27] MEDS: LACTATED RINGERS 1,000 ML 125 ML IV CONT ×2 (01:57→23:12)
[2022-09-27] MEDS: INSULIN ASPART (*BKC) 100 UNITS/ML SUB-Q ×3 (02:22→13:08)
[2022-09-27 02:26] LABS: Glucose Point of Care 236 mg/dl (65-105)
[2022-09-27 06:18] LABS: Glucose Point of Care 202 mg/dl (65-105)
[2022-09-27] MEDS: METOPROLOL TARTRATE 25 MG TABLET 75 MG PO ×3 (06:18→22:34)
[2022-09-27 08:39] LABS: Glucose Point of Care 215 mg/dl (65-105)
[2022-09-27 08:53] LABS: Hematocrit 29.4 % (42.0-52.0); Hemoglobin 9.1 g/dL (14.0-18.0); Mean Corpuscular Hemoglobin 26.5 pg (26-34); Mean Corpuscular Volume 85.7 fl (80-100); Mean Platelet Volume 9.3 fl (7.4-10.4); Platelet Count Result 402 k/mm3 (150-375); Red Blood Count 3.43 M/mm3 (4.6-6.20); Red Cell Distribution Width 14.2 % (11.5-14.5); White Blood Count 12.2 K/mm3 (4.5-10.0)
[2022-09-27] MEDS: metFORMIN HCL 500 MG TABLET 1000 MG PO ×2 (09:02→18:29)
[2022-09-27] MEDS: ERGOCALCIFEROL 50,000 UNITS CAPSULE 50000 UNITS PO (09:05)
[2022-09-27] MEDS: PRAVASTATIN SODIUM 20 MG TABLET 40 MG PO (09:05)
[2022-09-27] MEDS: MEMANTINE 10 MG TABLET PO ×2 (09:05→22:34)
[2022-09-27] MEDS: MULTIVITAMINS /C LUTEIN (CENTRUM SILVER) TABLET *BKC 1 TAB PO (09:05)
[2022-09-27] MEDS: THIAMINE HCL 100 MG TABLET PO (09:06)
[2022-09-27] MEDS: TAMSULOSIN HCL 0.4 MG CAPSULE PO (09:06)
[2022-09-27] MEDS: SILVERGEL (ELTA) 45 ML 1 APPLIC TOPICAL (09:08)
[2022-09-27] MEDS: SOD HYPOCHLORITE 1/4 STRENGTH 473 ML 1 APPLIC TOPICAL ×2 (09:08→22:35)
[2022-09-27 09:15] LABS: Anion Gap 2 mmol/L (8-16); Blood Urea Nitrogen 7 mg/dL (9-20); Calcium 7.9 mg/dL (8.4-10.2); Carbon Dioxide 25 mmol/L (22-30); Chloride 107 mmol/L (98-107); Estimated CRCL calculation 105 ml/min; Estimated Glomerular Filt Rate > 60; Glucose 193 mg/dL (65-110); Magnesium 1.5 mg/dL (1.6-2.3); Potassium 2.8 mmol/L (3.4-5.0); Sodium 134 mmol/L (137-145)
[2022-09-27] MEDS: POTASSIUM CHLORIDE 20 MEQ TABLET 40 MEQ PO (11:43)
[2022-09-27] MEDS: KCL 40 MEQ/0.9% SOD CHL 1,000 ML 100 ML IV CONT (11:52)
[2022-09-27] MEDS: MAGNESIUM SULF 2 GM/WATER 50ML 2 GM/50 ML BAG IVPB (11:52)
[2022-09-27 12:41] LABS: Glucose Point of Care 223 mg/dl (65-105)
--- NOTE | 2022-09-27 13:53 | PM.IMPN ---
Progress Note: A&P Assessment and Plan (1) Sepsis: Code(s): A41.9 - Sepsis, unspecified organism Status: Acute Assessment and Plan: Present on admission with tachycardia, leukocytosis, and lactic acidosis in the setting infection. Lactic acid level has improved somewhat with IV fluids but remains elevated. Blood, urine, and wound cultures pending. 09/27/2022 interval history: patient with dementia unable to provide any review of symptoms, patient presented with subcutaneous gas and fat stranding in the buttock and lower back in the midline consistent with pressure ulcer and possibly necrotizing wound, patient was seen by surgery service and had debridement on 09/24 and does not suspect patient has necrotizing wound, upon arrival patient had and fibrillation with RVR patient was started on diltiazem drip and metoprolol 75 mg q8, seen by cardiology further recommendation to follow. patient is off diltiazem drip currently on diltiazem 90 mg q.6h and metoprolol 75 mg q.8 rate is controlled and anticoagulated with Eliquis, patient remains clinically stable will continue to monitor unfortunately patient is not able to participate in PT OT, urine culture is growing Proteus mirabilis sensitive to ceftriaxone, blood culture no growth so far, patient remains clinically stable (2) Infected pressure ulcer: Code(s): L89.90 - Pressure ulcer of unspecified site, unspecified stage; L08.9 - Local infection of the skin and subcutaneous tissue, unspecified Status: Acute Assessment and Plan: He has been started on vancomycin, imipenem, and clindamycin per antibiotic stewardship recommendations. Wound culture pending. Dr. Chambers consulted by ED physician and he will see the patient in the morning for possible debridement. (3) Abnormal urinalysis: Code(s): R82.90 - Unspecified abnormal findings in urine Status: Acute Assessment and Plan: Urine culture pending. Recently treated for Nora glabrata fungemia and UTI. (4) Atrial fibrillation with rapid ventricular response: Code(s): I48.91 - Unspecified atrial fibrillation Status: Acute Assessment and Plan: Currently on a diltiazem drip with some improvement. Continue metoprolol. If rate remains poorly controlled consider amiodarone as he has been on Eliquis. (5) Insulin dependent type 2 diabetes mellitus: Code(s): E11.9 - Type 2 diabetes mellitus without complications; Z79.4 - residential (current) use of insulin Status: Acute Assessment and Plan: Continue basal insulin. Initiate sliding scale insulin, Accu-Cheks, and hypoglycemic protocol. (6) Chronic anticoagulation: Code(s): Z79.01 - residential (current) use of anticoagulants Status: Acute Assessment and Plan: Continue Eliquis. Plan Patient has DNR/DNI paperwork with comfort focus measures. His mother is and remaining family members do not want to be involved in his care or decision making. DNR/DNI will be honored. Continue current treatment, if he declines it is unlikely that he would have wanted to be placed on a ventilator or started on vasopressors. Subjective Date/time seen: 09/27/22 13:53 Present on admission with tachycardia, leukocytosis, and lactic acidosis in the setting infection. Lactic acid level has improved somewhat with IV fluids but remains elevated. Blood, urine, and wound cultures pending. 09/27/2022 interval history: patient with dementia unable to provide any review of symptoms, patient presented with subcutaneous gas and fat stranding in the buttock and lower back in the midline consistent with pressure ulcer and possibly necrotizing wound, patient was seen by surgery service and had debridement on 09/24 and does not suspect patient has necrotizing wound, upon arrival patient had and fibrillation with RVR patient was started on diltiazem drip and metoprolol 75 mg q8, seen by cardiology further recom
[2022-09-27] MEDS: POTASSIUM CHLORIDE INJ 40 MEQ in SODIUM CHLORIDE 0.9% IV 500 ML 130 MEQ IVPB (15:05)
[2022-09-27 17:34] LABS: Glucose Point of Care 181 mg/dl (65-105)
[2022-09-27] MEDS: SALINE LOCK FLUSH 10 ML IV PUSH ×2 (18:32→22:35)
[2022-09-27] MEDS: INSULIN GLARGINE (*BKC) 100 UNITS/ML 20 UNITS SUB-Q (18:33)
[2022-09-27] MEDS: cefTRIAXone 2 GM in SODIUM CHLORIDE 0.9% IV 100 ML 200 ML IVPB (19:30)
[2022-09-27 23:14] LABS: Glucose Point of Care 149 mg/dl (65-105)
[2022-09-28] VITALS (12 sets, daily range): BP systolic 106–110; BP diastolic 52–88; PULSE 74–106; RESP 16–20; TEMP 36.2–36.6; O2SAT 96–98
[2022-09-28 06:30] LABS: Estimated CRCL calculation 105 ml/min; Estimated Glomerular Filt Rate > 60
[2022-09-28 06:31] LABS: Vancomycin Trough 33.8 ug/mL (10.0-20.0)
[2022-09-28] MEDS: dilTIAZem HCL TAB 30 MG, dilTIAZem HCL TAB 60 MG 90 MG PO ×3 (06:46→17:37)
[2022-09-28] MEDS: METOPROLOL TARTRATE 25 MG TABLET 75 MG PO ×3 (06:46→21:25)
[2022-09-28] MEDS: metroNIDAZOLE 250 MG TABLET 500 MG PO ×4 (06:46→23:21)
[2022-09-28] MEDS: SALINE LOCK FLUSH 10 ML IV PUSH ×3 (06:47→21:28)
[2022-09-28 06:50] LABS: Glucose Point of Care 193 mg/dl (65-105)
[2022-09-28 08:19] LABS: Hematocrit 29.9 % (42.0-52.0); Hemoglobin 9.2 g/dL (14.0-18.0); Mean Corpuscular HGB Conc 30.8 g/dl (32-36); Mean Corpuscular Hemoglobin 26.4 pg (26-34); Mean Corpuscular Volume 85.9 fl (80-100); Mean Platelet Volume 9.4 fl (7.4-10.4); Platelet Count Result 412 k/mm3 (150-375); Red Blood Count 3.48 M/mm3 (4.6-6.20); Red Cell Distribution Width 14.1 % (11.5-14.5)
[2022-09-28 08:20] LABS: Anion Gap 3 mmol/L (8-16); Blood Urea Nitrogen 5 mg/dL (9-20); Carbon Dioxide 25 mmol/L (22-30); Chloride 107 mmol/L (98-107); Glucose 193 mg/dL (65-110); Magnesium 1.4 mg/dL (1.6-2.3); Sodium 135 mmol/L (137-145)
[2022-09-28 08:40] LABS: Glucose Point of Care 215 mg/dl (65-105)
[2022-09-28] MEDS: metFORMIN HCL 500 MG TABLET 1000 MG PO ×2 (09:42→17:38)
[2022-09-28] MEDS: MEMANTINE 10 MG TABLET PO ×2 (09:43→21:26)
[2022-09-28] MEDS: MULTIVITAMINS /C LUTEIN (CENTRUM SILVER) TABLET *BKC 1 TAB PO (09:43)
[2022-09-28] MEDS: TAMSULOSIN HCL 0.4 MG CAPSULE PO (09:44)
[2022-09-28] MEDS: PRAVASTATIN SODIUM 20 MG TABLET 40 MG PO (09:44)
[2022-09-28] MEDS: THIAMINE HCL 100 MG TABLET PO (09:44)
[2022-09-28] MEDS: POTASSIUM CHLORIDE 20 MEQ TABLET 40 MEQ PO (09:49)
[2022-09-28] MEDS: MAGNESIUM SULF 2 GM/WATER 50ML 2 GM/50 ML BAG IVPB (09:50)
--- NOTE | 2022-09-28 12:21 | PM.IMPN ---
Progress Note: A&P Assessment and Plan (1) Sepsis: Code(s): A41.9 - Sepsis, unspecified organism Status: Acute Assessment and Plan: Present on admission with tachycardia, leukocytosis, and lactic acidosis in the setting infection. Lactic acid level has improved somewhat with IV fluids but remains elevated. Blood, urine, and wound cultures pending. 09/28/2022 interval history: patient with dementia unable to provide any review of symptoms, patient presented with subcutaneous gas and fat stranding in the buttock and lower back in the midline consistent with pressure ulcer and possibly necrotizing wound, patient was seen by surgery service and had debridement on 09/24 and does not suspect patient has necrotizing wound, upon arrival patient had and fibrillation with RVR patient was started on diltiazem drip and metoprolol 75 mg q8, seen by cardiology further recommendation to follow. patient is off diltiazem drip currently on diltiazem 90 mg q.6h and metoprolol 75 mg q.8 rate is controlled and anticoagulated with Eliquis, patient remains clinically stable will continue to monitor unfortunately patient is not able to participate in PT OT, urine culture is growing Proteus mirabilis sensitive to ceftriaxone, blood culture no growth so far, patient remains clinically stable will discharge the patient back to [facility] tomorrow patient will be admitted under hospice care. (2) Infected pressure ulcer: Code(s): L89.90 - Pressure ulcer of unspecified site, unspecified stage; L08.9 - Local infection of the skin and subcutaneous tissue, unspecified Status: Acute Assessment and Plan: He has been started on vancomycin, imipenem, and clindamycin per antibiotic stewardship recommendations. Wound culture pending. Dr. Chambers consulted by ED physician and he will see the patient in the morning for possible debridement. (3) Abnormal urinalysis: Code(s): R82.90 - Unspecified abnormal findings in urine Status: Acute Assessment and Plan: Urine culture pending. Recently treated for Nora glabrata fungemia and UTI. (4) Atrial fibrillation with rapid ventricular response: Code(s): I48.91 - Unspecified atrial fibrillation Status: Acute Assessment and Plan: Currently on a diltiazem drip with some improvement. Continue metoprolol. If rate remains poorly controlled consider amiodarone as he has been on Eliquis. 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 Initiate sliding scale insulin, Accu-Cheks, and hypoglycemic protocol. (6) Chronic anticoagulation: Code(s): Z79.01 - parts counterman (current) use of anticoagulants Status: Acute Assessment and Plan: Continue Eliquis. Plan Patient has DNR/DNI paperwork with comfort focus measures. His mother is and remaining family members do not want to be involved in his care or decision making. DNR/DNI will be honored. Continue current treatment, if he declines it is unlikely that he would have wanted to be placed on a ventilator or started on vasopressors. Subjective Date/time seen: 09/28/22 12:21 09/28/2022 interval history: patient with dementia unable to provide any review of symptoms, patient presented with subcutaneous gas and fat stranding in the buttock and lower back in the midline consistent with pressure ulcer and possibly necrotizing wound, patient was seen by surgery service and had debridement on 09/24 and does not suspect patient has necrotizing wound, upon arrival patient had and fibrillation with RVR patient was started on diltiazem drip and metoprolol 75 mg q8, seen by cardiology further recommendation to follow. patient is off diltiazem drip currently on diltiazem 90 mg q.6h and metoprolol 75 mg q.8 rate
[2022-09-28 12:33] LABS: Glucose Point of Care 201 mg/dl (65-105)
[2022-09-28] MEDS: INSULIN ASPART (*BKC) 100 UNITS/ML SUB-Q ×2 (12:52→17:58)
--- NOTE | 2022-09-28 13:46 | PM.PNCARD ---
Progress Note: A&P Assessment and Plan (1) Atrial fibrillation with rapid ventricular response: Code(s): I48.91 - Unspecified atrial fibrillation Status: Acute Assessment and Plan: Heart rate controlled on present regimen. Permanent atrial fibrillation difficult to control previously managed with oral metoprolol 75 mg p.o. q.8 hour and diltiazem 90 mg p.o. q.6 hours. Will discontinue short-acting diltiazem in favor 360 mg diltiazem CD to simplify medical regimen. Continue metoprolol 75mg q8h. Continue Eliquis 5 mg b.i.d. for stroke risk reduction. (2) Hypokalemia: Code(s): E87.6 - Hypokalemia Status: Acute Assessment and Plan: Patient hypokalemic and hypomagnesemic. IV magnesium supplement provided. Potassium chloride 40 mg p.o. x1 additional provided. Recheck BMP and magnesium in a.m. and supplement to keep potassium closer to 4 and magnesium around 2. (3) Sepsis: Code(s): A41.9 - Sepsis, unspecified organism Status: Acute Assessment and Plan: Continue IV abx. Management per primary service. Resolved. (4) Acute kidney injury: Code(s): N17.9 - Acute kidney failure, unspecified Status: Acute Assessment and Plan: Resolved. Renal function stable. (5) Infected pressure ulcer: Code(s): L89.90 - Pressure ulcer of unspecified site, unspecified stage; L08.9 - Local infection of the skin and subcutaneous tissue, unspecified Status: Acute Assessment and Plan: S/p debridement. Antibiotics. (6) Insulin dependent type 2 diabetes mellitus: Code(s): E11.9 - Type 2 diabetes mellitus without complications; Z79.4 - [facility] (current) use of insulin Status: Acute Assessment and Plan: Management per primary service. (7) Dementia: Code(s): F03.90 - Unspecified dementia, unspecified severity, without behavioral disturbance, psychotic disturbance, mood disturbance, and anxiety Status: Acute Assessment and Plan: Chronic, baseline. (8) Chronic anticoagulation: Code(s): Z79.01 - oracle fusion middleware architect (current) use of anticoagulants Status: Acute Assessment and Plan: Continue Eliquis 5 mg b.i.d. as clinically appropriate for stroke risk reduction due to atrial fibrillation. Follow H&H. Monitor for bleeding. Plan Attending Addendum: I have personally seen and examined this patient at bedside. I agree with the above documentation and plan of care as outlined. -Patient denies chest pain or shortness of breath. Heart rate much better controlled at this time. No new issues overnight. Blood pressure transiently low postop yesterday evening better but a little soft systolic blood pressure in 90s. Exam: NAD, Awake, comfortable,nonfocal neuro exam No JVD Lungs CTA bilaterally Irreg irregular, S1/S2 Abd soft, NT/ND, +BS Ext no edema, clubbing, or cyanosis Plan of Care: Monitor H&H given worsening anemia. Monitor for bleeding. recommend resuming systemic anticoagulation provided H&H stable no evidence for bleed. DVT prophylaxis at a minimum. AFib better controlled. Change to oral diltiazem 60 mg p.o. q.6 hours and metoprolol tartrate 75 mg p.o. q.8 hours. If hypotension persists and give IV hydration monitor response. Continue postop surgical wound care. IV Antibiotics. Subjective Date/time seen: Date of service: 09/28/22 13:46 Interval history: No new issues overnight. Heart rate remains controlled in atrial fibrillation on telemetry. Patient denies shortness of breath or chest pain. Indicates he feels reasonably well. Reported plan for hospice care upon discharge to senior living. Review of Systems Review of Systems: All systems reviewed & are unremarkable except as noted in HPI and below ROS unobtainable: Yes unobtainable due to mental status Constitutional: Constitutional: Reports as per HPI and Reports no additional constitutional complaints Eyes: Eyes: Reports as per HPI an
[2022-09-28] MEDS: SOD HYPOCHLORITE 1/4 STRENGTH 473 ML 1 APPLIC TOPICAL ×2 (14:20→21:28)
[2022-09-28] MEDS: SILVERGEL (ELTA) 45 ML 1 APPLIC TOPICAL (14:21)
[2022-09-28] MEDS: LACTATED RINGERS 1,000 ML 125 ML IV CONT (16:35)
[2022-09-28] MEDS: INSULIN GLARGINE (*BKC) 100 UNITS/ML 20 UNITS SUB-Q (16:37)
[2022-09-28] MEDS: cefTRIAXone 2 GM in SODIUM CHLORIDE 0.9% IV 100 ML 200 ML IVPB (17:40)
[2022-09-28 17:53] LABS: Glucose Point of Care 201 mg/dl (65-105)
[2022-09-28 21:17] LABS: Glucose Point of Care 176 mg/dl (65-105)
[2022-09-29] VITALS (8 sets, daily range): BP systolic 110–121; BP diastolic 60–63; PULSE 70–120; RESP 16–20; TEMP 36.4–36.6; O2SAT 97
[2022-09-29] MEDS: LACTATED RINGERS 1,000 ML 125 ML IV CONT (05:34)
[2022-09-29] MEDS: metroNIDAZOLE 250 MG TABLET 500 MG PO ×3 (05:35→18:36)
[2022-09-29] MEDS: METOPROLOL TARTRATE 25 MG TABLET 75 MG PO ×3 (05:35→20:48)
[2022-09-29 08:17] LABS: Hematocrit 30.3 % (42.0-52.0); Hemoglobin 9.4 g/dL (14.0-18.0); Mean Corpuscular Hemoglobin 26.3 pg (26-34); Mean Corpuscular Volume 84.6 fl (80-100); Mean Platelet Volume 9.1 fl (7.4-10.4); Platelet Count Result 419 k/mm3 (150-375); Red Blood Count 3.58 M/mm3 (4.6-6.20); Red Cell Distribution Width 14.3 % (11.5-14.5); White Blood Count 13.3 K/mm3 (4.5-10.0)
[2022-09-29 08:29] LABS: Anion Gap 3 mmol/L (8-16); Blood Urea Nitrogen 8 mg/dL (9-20); Carbon Dioxide 27 mmol/L (22-30); Chloride 105 mmol/L (98-107); Estimated CRCL calculation 94 ml/min; Estimated Glomerular Filt Rate > 60; Glucose 182 mg/dL (65-110); Magnesium 1.7 mg/dL (1.6-2.3); Potassium 2.9 mmol/L (3.4-5.0); Sodium 135 mmol/L (137-145)
[2022-09-29 08:34] LABS: Vancomycin Trough 14.6 ug/mL (10.0-20.0)
[2022-09-29 08:55] LABS: Glucose Point of Care 178 mg/dl (65-105)
[2022-09-29] MEDS: SALINE LOCK FLUSH 10 ML IV PUSH ×2 (10:09→13:06)
[2022-09-29] MEDS: POTASSIUM CHLORIDE 20 MEQ TABLET 40 MEQ PO (10:10)
[2022-09-29] MEDS: metFORMIN HCL 500 MG TABLET 1000 MG PO ×2 (10:10→16:50)
[2022-09-29] MEDS: dilTIAZem HCL CD 180 MG CAP.ER.24H 360 MG PO (10:11)
[2022-09-29] MEDS: TAMSULOSIN HCL 0.4 MG CAPSULE PO (10:13)
[2022-09-29] MEDS: MULTIVITAMINS /C LUTEIN (CENTRUM SILVER) TABLET *BKC 1 TAB PO (10:13)
[2022-09-29] MEDS: PRAVASTATIN SODIUM 20 MG TABLET 40 MG PO (10:13)
[2022-09-29] MEDS: THIAMINE HCL 100 MG TABLET PO (10:13)
[2022-09-29] MEDS: POTASSIUM CHLORIDE INJ 40 MEQ in SODIUM CHLORIDE 0.9% IV 500 ML 130 MEQ IVPB (10:20)
[2022-09-29 12:39] LABS: Glucose Point of Care 167 mg/dl (65-105)
[2022-09-29] MEDS: MAGNESIUM OXIDE 400 MG TABLET PO (13:08)
[2022-09-29] MEDS: MEMANTINE 10 MG TABLET PO ×2 (13:08→20:48)
[2022-09-29] MEDS: SOD HYPOCHLORITE 1/4 STRENGTH 473 ML 1 APPLIC TOPICAL (13:08)
[2022-09-29] MEDS: SILVERGEL (ELTA) 45 ML 1 APPLIC TOPICAL (13:08)
[2022-09-29 15:42] LABS: Anion Gap 3 mmol/L (8-16); Blood Urea Nitrogen 10 mg/dL (9-20); Carbon Dioxide 27 mmol/L (22-30); Chloride 109 mmol/L (98-107); Estimated CRCL calculation 119 ml/min; Estimated Glomerular Filt Rate > 60; Glucose 194 mg/dL (65-110); Magnesium 1.6 mg/dL (1.6-2.3); Potassium 3.7 mmol/L (3.4-5.0); Sodium 139 mmol/L (137-145)
--- NOTE | 2022-09-29 16:25 | PM.DS ---
DS: Admitting Diagnosis Discharge Date 09/29/2022 Admitting Diagnosis blood in the urine DS: Discharge Diagnosis Discharge Diagnosis (1) Insulin dependent type 2 diabetes mellitus: Code(s): E11.9 - Type 2 diabetes mellitus without complications; Z79.4 - custodial (current) use of insulin Status: Acute (2) Sepsis: Code(s): A41.9 - Sepsis, unspecified organism Status: Acute (3) Infected pressure ulcer: Code(s): L89.90 - Pressure ulcer of unspecified site, unspecified stage; L08.9 - Local infection of the skin and subcutaneous tissue, unspecified Status: Acute (4) Abnormal urinalysis: Code(s): R82.90 - Unspecified abnormal findings in urine Status: Acute (5) Atrial fibrillation with rapid ventricular response: Code(s): I48.91 - Unspecified atrial fibrillation Status: Acute (6) Chronic anticoagulation: Code(s): Z79.01 - lobsterman (current) use of anticoagulants Status: Acute Plan Patient has DNR/DNI paperwork with comfort focus measures. His mother is and remaining family members do not want to be involved in his care or decision making. DNR/DNI will be honored. Continue current treatment, if he declines it is unlikely that he would have wanted to be placed on a ventilator or started on vasopressors. DS: Summary Hospital Course Reason for hospitalization: Blood in urine. Narrative: This is an unfortunate 67-year-old male with dementia, bipolar disorder, chronic atrial fibrillation, cardiomyopathy, type 2 diabetes mellitus, and hypertension who presented to the emergency department via EMS from [place] for evaluation of blood in urine. Source of information is long term records, external medication history, and electronic medical records. He is alert and oriented to self only and is unable to provide history. Paperwork that accompanies him indicates that he is a DNR/DNI with comfort focused treatment. Staff sent him in as there was apparently blood in his urine and Mace catheter today. It is noted that he was recently hospitalized with urosepsis. Blood and urine cultures were positive for Nora glabrata and he was discharged with a midline and received micafungin through 09/17/2022. In the emergency department today he has had temperatures as high as 101.4? F. He has been persistently tachycardic and is in AFib/RVR with rates ranging between the 120s to 140s at the time my evaluation. Blood pressures have been stable on a diltiazem drip which is currently at 15 mg an hour. Lactic acid level was 4.1 and WBC count was 14.4. Urine is grossly abnormal with 2+ blood, 1+ leukocyte esterase, 2+ bacteria, greater than 75 WBC, and positive nitrates. He tested negative for influenza and COVID. Chest x-ray showed small lung volumes but no acute findings. CT of the abdomen pelvis showed fat stranding around the bladder consistent with edema versus inflammation and subcutaneous gas and fat stranding in the buttocks and lower back in the midline consistent with inflammation at the site of a pressure wound. He has been started on broad-spectrum antibiotics and is being admitted in this setting. Dr. Chambers was consulted by the ED physician and he will see the patient tomorrow for possible debridement. Hospital Course: patient with dementia unable to provide any review of symptoms, patient presented with subcutaneous? gas? and fat stranding in the buttock and lower back in the midline consistent with pressure ulcer and possibly necrotizing wound,? patient was seen by surgery service and had debridement on 09/24? and does not suspect patient has? necrotizing wound, upon arrival patient had and fibrillation with RVR? patient was started on diltiazem drip? and metoprolol 75 mg q8, seen by cardiology further recommendation to follow. patient is off diltiazem drip currently on diltiazem? 90 mg q.6h and metoprolol 75 mg q.8 rate is controlled and anticoagulated with Eliquis, patient remains cl
[2022-09-29] MEDS: INSULIN GLARGINE (*BKC) 100 UNITS/ML 20 UNITS SUB-Q (16:40)
[2022-09-29 17:25] LABS: EDCOVIDSCREEN Negative (Negative)
[2022-09-29 17:36] LABS: Glucose Point of Care 160 mg/dl (65-105)
[2022-09-29 19:24] LABS: Glucose Point of Care 166 mg/dl (65-105)
[2022-09-29 20:35] LABS: Glucose Point of Care 164 mg/dl (65-105)
== END 2022-09-30 | DRG 853 ==
LOC: ANHED 15:04 → ANHIMU 19:40 → ANH3MED 09-26 15:13
PROVIDERS: Nurse Practitioner; Physician Assistant; Surgery; Admitting Provider Student in an Organized Health Care Education/Training Program; Emergency Provider Emergency Medicine; PCP Family Medicine; Visit Provider Family Medicine
PROC: 0JB70ZZ Excision of Back Subcutaneous Tissue and Fascia, Open Approach (ICD-10-PCS; principal; 2022-09-24 17:45)
DX: A41.9 Sepsis, unspecified organism (principal); L89.153 Pressure ulcer of sacral region, stage 3; T83.511A Infection and inflammatory reaction due to indwelling urethral catheter, initial encounter; N39.0 Urinary tract infection, site not specified; I42.9 Cardiomyopathy, unspecified; I48.20 Chronic atrial fibrillation, unspecified; E87.21 Acute metabolic acidosis; L08.89 Other specified local infections of the skin and subcutaneous tissue; B96.4 Proteus (mirabilis) (morganii) as the cause of diseases classified elsewhere; E87.6 Hypokalemia; Z66 Do not resuscitate; Z20.822 Contact with and (suspected) exposure to COVID-19; F03.90 Unspecified dementia, unspecified severity, without behavioral disturbance, psychotic disturbance, mood disturbance, and anxiety; F31.9 Bipolar disorder, unspecified; E11.42 Type 2 diabetes mellitus with diabetic polyneuropathy; G47.30 Sleep apnea, unspecified; D72.829 Elevated white blood cell count, unspecified; E55.9 Vitamin D deficiency, unspecified; E66.01 Morbid (severe) obesity due to excess calories; Z68.38 Body mass index [BMI] 38.0-38.9, adult; Z79.4 Long term (current) use of insulin; Z79.84 Long term (current) use of oral hypoglycemic drugs
CPT/HCPCS: 36415; 36569; 71045; 74177; 80048; 80053; 80202; 81001; 82565; 82948; 83605; 83735; 85025; 85027; 87040; 87077; 87086; 87088; 87186; 87426; 87636; 93005; 96361; 96365; 96366; 96367; 96368; 96375; 99285; A9270; C1751; C9803; J0131; J0692; J0696; J0743; J1815; J2405; J2704; J3010; J3370; J3475; J3480; J7030; J7040; J7050; J7120; Q9967

== ENCOUNTER 2022-09-30 17:32 | Emergency (ER) | payer MEDICARE, MEDICAID, SELFPAY ==
[2022-09-30] VITALS (7 sets, daily range): BP systolic 108–152; BP diastolic 71–92; PULSE 86–104; RESP 16–20; TEMP 36.4; O2SAT 95–98
--- NOTE | 2022-09-30 17:54 | PC.NURSE ---
EDP at bedside to assess pt.
--- NOTE | 2022-09-30 17:59 | PCCCNOTE ---
Called by hot car charger to call DON of nursing regarding patient and patient coming back to the hospital. Called Figueroa at [facility] [phone]. Figueroa states that patient arrived at 0030 today and has declined since then. Figueroa states that his brother is not answering the phone. Patient is not admitted to hospice, per Figueroa consents were sent to brother but not completed so he isn't on hospice, as per ms care coordination note brother was planning to sign consents after honeymoon which he is currently on. All other family do not want any contact. He is a DNR but is supposed to be receiving IV fungal medication but arrived to [facility] w/o an IV. Figueroa was going to start an IV but patient was already swollen, cold, with some mottling, and she spoke with their MD Dr. Reyes who advises for the patient to be sent back to the hospital. Figueroa did attempt x3 to contact dee from [facility] w/o any success or return call. This neonatal intensive care unit nurse calls brother on another phone will Figueroa awaits, and there is no answer, left vm message to call Figueroa as soon as possible. Update ER hot car charger Diya. Spoke w/ PACelsa over phone, explained the above and provided her with the DON's phone # [phone]
--- NOTE | 2022-09-30 18:06 | ED.GENADULT ---
HPI - General Adult General Chief complaint: Unspecified Stated complaint: declining in health Time Seen by Provider: 09/30/22 17:41 History of Present Illness HPI narrative: Patient is a 67-year-old male here for evaluation from his fdc for declining status. He was just discharged from the hospital yesterday after a prolonged stay for urosepsis, numerous pressure ulcers and health declination. He was sent to [facility] with plans to transition to hospice care, although the papers have not been officially signed. When patient arrived at [facility], the nurse expressed concern over the fact that the patient did not have an IV in place to receive his antifungals and did not look clinically well. He is supposed to be getting antifungal medicine through his IV and is on PO flagyl. She attempted to contact patient's family members to sign the hospice paperwork but unfortunately they did not answer the call. Because hospice orders were not signed yet she contacted EMS. Patient himself is just saying that he feels bad all over. Related Data Home Medications Medication Instructions Recorded Confirmed acetaminophen 325 mg tablet 650 mg PO Q6H PRN Pain 08/30/22 09/24/22 (Tylenol) ergocalciferol (vitamin D2) 25,000 50,000 unit PO WEEKLY 08/30/22 09/24/22 unit capsule insulin detemir U-100 100 unit/mL 50 unit subcut DAILY 08/30/22 09/24/22 subcutaneous solution (Levemir U-100 Insulin) insulin regular human 100 unit/mL 20 unit subcut TIDWMEAL 08/30/22 09/24/22 injection solution (Novolin R Regular U-100 Insulin) memantine 10 mg tablet 10 mg PO BID 08/30/22 09/24/22 metformin 1,000 mg tablet 1,000 mg PO BID 08/30/22 09/24/22 multivit with minerals-iron 18 1 tablet PO DAILY 08/30/22 09/24/22 mg-folic ac 400 mcg-vit K 25 mcg tablet (Adults Multivitamin) pravastatin 40 mg tablet 40 mg PO DAILY 08/30/22 09/24/22 thiamine HCl (vitamin B1) 100 mg 100 mg PO DAILY 08/30/22 09/24/22 tablet (Vitamin B-1) Allergies Allergy/AdvReac Type Severity Reaction Status Date / Time aspirin Allergy Other Verified 08/30/22 04:41 Review of Systems Review of Systems: Gen.: Denies fevers or chills Eyes: Denies eye pain or visual change ENT: Denies congestion Respiratory: Denies shortness of breath or cough CV: Denies chest pain or palpitations GI: Denies abdominal pain nausea, emesis or diarrhea denies burning, urgency, frequency or hematuria Musculoskeletal: Denies back pain or muscle pain Neuro: Denies numbness, tingling, weakness or focal weakness Skin: Denies rash Except as documented, all other systems reviewed and negative [facility] Past Medical History Medical History Bipolar disorder Cardiomyopathy Echo August 2022 showed normal LV chamber size, hyperdynamic LV function with an EF of greater than 70%, and indeterminate diastolic function. 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 Mother is listed as emergency contact however she has passed. Family members have repeatedly declined to discuss the patient and do not wish to be contacted. He apparently has been a fdc since December 2015. Code status: DNR/DNI with comfort based treatment Smoking status: Unknown if ever smoked Alcohol intake: unknown Substance use: unknown Spiritual care concerns: No Exam Narrative: APPEARANCE: Chronically ill-appearing, ANO x1, pale Head: Normocephalic and atraumatic. EYES: PERRLA/EOMI, conjunctivae clear NOSE: No nasal
[2022-09-30 18:46] LABS: Basophils Percent Auto 0.3 % (0.2-1.2); Eosinophils Absolute Auto 0.2 K/mm3 (0-0.3); Eosinophils Percent Auto 1.3 % (0-4.4); Hematocrit 31.6 % (42.0-52.0); Hemoglobin 9.8 g/dL (14.0-18.0); Immature Granulocyte Absolute 0.05 K/mm3 (0.00-0.031); Immature Granulocyte Percent A 0.4 % (0-0.5); Lymphocytes Absolute Auto 2.34 K/mm3 (0.9-3.2); Lymphocytes Percent Auto 19.4 % (18.3-44.2); Mean Corpuscular Hemoglobin 26.5 pg (26-34); Mean Corpuscular Volume 85.4 fl (80-100); Mean Platelet Volume 8.6 fl (7.4-10.4); Monocytes Percent Auto 8.6 % (2.6-8.5); Neutrophils Absolute Auto 8.5 K/mm3 (1.3-6.7); Platelet Count Result 422 k/mm3 (150-375); Red Cell Distribution Width 14.3 % (11.5-14.5); White Blood Count 12.1 K/mm3 (4.5-10.0)
[2022-09-30 18:55] LABS: Lactic Acid Reflex 1.2 mmol/L (0.7-2.0)
[2022-09-30 18:57] LABS: Alanine Aminotransferase 25 U/L (6-50); Albumin Level 2.5 g/dL (3.5-5.1); Alkaline Phosphatase 58 U/L (38-126); Anion Gap 3 mmol/L (8-16); Aspartate Amino Transferase 30 U/L (17-59); Bilirubin,Total 0.4 mg/dL (0.2-1.3); Blood Urea Nitrogen 7 mg/dL (9-20); Calcium 8.2 mg/dL (8.4-10.2); Carbon Dioxide 29 mmol/L (22-30); Chloride 105 mmol/L (98-107); Estimated Glomerular Filt Rate > 60; Glucose 142 mg/dL (65-110); Potassium 3.3 mmol/L (3.4-5.0); Sodium 137 mmol/L (137-145)
[2022-09-30] MEDS: MICAFUNGIN SODIUM 100 MG in SODIUM CHLORIDE 0.9% IV 100 ML IVPB (19:04)
--- NOTE | 2022-09-30 19:40 | PC.NURSE ---
[facility] here.
== END 2022-09-30 20:07 ==
PROVIDERS: Emergency Provider Physician Assistant; PCP Family Medicine
DX: R53.81 Other malaise (principal); F31.9 Bipolar disorder, unspecified; Z79.01 Long term (current) use of anticoagulants; I48.91 Unspecified atrial fibrillation; I10 Essential (primary) hypertension; E11.9 Type 2 diabetes mellitus without complications; Z79.4 Long term (current) use of insulin; F03.90 Unspecified dementia, unspecified severity, without behavioral disturbance, psychotic disturbance, mood disturbance, and anxiety
CPT/HCPCS: 36415; 80053; 83605; 85025; 96365; 99284; J2248